=== PATIENT | male | born 1945 | race Caucasian/White ===

== ENCOUNTER 2020-12-26 14:33 | Outpatient (CLI) | payer MEDICARE, OTHER, SELFPAY ==
--- NOTE | ~2020-12-26 | CT_ITS ---
EXAMINATION: CT abdomen pelvis w con DATE: 12/26/2020 15:22 INDICATION: Secondary malignant neoplasm of unspecified site TECHNIQUE: Computed tomography (CT) of the abdomen and pelvis was performed with 100 cc Omnipaque 350 intravenous contrast. Automated exposure control and iterative reconstruction technique were employe d. Exam dose: 1313.00 mGy-cm total exam DLP. COMPARISON: None. FINDINGS: There is peripheral septal soft tissue thickening and honeycombing suggesting usual interst itial pneumonia or interstitial fibrosis. Heart size is normal. There is coronary artery calcification. No pericardial or pleural effusion. There is a small sliding hiatal hernia. There is a 2 cm gallstone. No gallbladder wall thickening or pericholecystic fluid or fat stranding. No bile duct dilatation. There are multiple ill-defined space-occupying mass lesions of the liver, the largest situated in the left lobe, measuring at least 5.5 cm maximal dimension. The findings are most suggestive of hepatic metastatic disease. Differential diagnosis includes multifocal hepatocellular carcinoma. There is at least one approximately 8 mm splenic ill-defined hypoattenuating lesion; splenic metastas is is not excluded. Possible 8 mm left adrenal hypoattenuating mass; the adrenal glands are otherwise unremarkable. 12 mm exophytic right renal cyst. Mild focal anterior mid right renal scarring. No urinary tract calc ulus or hydroureteronephrosis. There is massive enlargement of the heterogeneous prostate gland, prominently impressing the base of the urinary bladder. There is moderate diffuse bladder wall thickening and bladder distention, likely due to bladder outlet obstruction. Mild colonic diverticulosis. No CT evidence of diverticulitis. No bowel obstruction, bowel wall thickening, pneumatosis or intraperitoneal free air is evident. There is atherosclerotic calcification of the abdominal aorta and aortic branches. No abdominal aorti c aneurysm. No intraperitoneal or retroperitoneal or pelvic mass lesion or adenopathy or ascites. Diffuse idiopathic skeletal hyperostosis of the thoracic spine. Degenerative change of the lumbar spi ne including prominent degenerative change at the apophyseal joints with associated grade 1 anterolis thesis at L4-5. Moderate degenerative disc disease at L4-5 and L5-S1. Bilateral hip osteoarthritis. No apparent osteolytic or osteoblastic lesions are noted. IMPRESSION: Multiple ill-defined fine hepatic mass lesions, measuring up to 5.5 cm, most likely due to hepatic metastatic disease. Differential diagnosis includes multifocal or metastatic hepatocellula r carcinoma Small sliding hiatal hernia At least one 8 mm space-occupying mass lesion of the spleen; splenic metastasis is not excluded. Massive prostate enlargement with evidence of bladder outlet obstruction 12 mm exophytic right renal cyst Focal anterior mid right renal scar Reviewed, dictated and finalized at [facility]. Reviewed, dictated and finalized at [facility]. IMPRESSION: Multiple ill-defined fine hepatic mass lesions, measuring up to 5. 5 cm, most likely due to hepatic metastatic disease. Differential diagnosis inc ludes multifocal or metastatic hepatocellular carcinoma Small sliding hiatal hernia At least one 8 mm space-occupying mass lesion of the spleen; splenic metastasis is not excluded. Massive prostate enlargement with evidence of bladder outlet obstruction 12 mm exophytic right renal cyst Focal anterior mid right renal scar
[2020-12-26 15:14] LABS: Estimated Glomerular Filt Rate > 60
== END 2020-12-26 14:34 | disposition home or self-care (01) ==
PROVIDERS: PCP Family Medicine; Visit Provider Family Medicine
DX: C79.9 Secondary malignant neoplasm of unspecified site (principal); R16.0 Hepatomegaly, not elsewhere classified; R16.1 Splenomegaly, not elsewhere classified; N28.1 Cyst of kidney, acquired; K57.30 Diverticulosis of large intestine without perforation or abscess without bleeding; K44.9 Diaphragmatic hernia without obstruction or gangrene; I25.10 Atherosclerotic heart disease of native coronary artery without angina pectoris; M17.0 Bilateral primary osteoarthritis of knee; K80.80 Other cholelithiasis without obstruction; E27.9 Disorder of adrenal gland, unspecified; I70.0 Atherosclerosis of aorta; N40.0 Benign prostatic hyperplasia without lower urinary tract symptoms; M48.14 Ankylosing hyperostosis [Forestier], thoracic region; M47.816 Spondylosis without myelopathy or radiculopathy, lumbar region; M47.817 Spondylosis without myelopathy or radiculopathy, lumbosacral region
CPT/HCPCS: 74177; Q9967

== ENCOUNTER 2020-12-28 12:29 | Outpatient (CLI) | payer MEDICARE, OTHER, SELFPAY ==
[2020-12-28 13:03] LABS: Basophils Percent Auto 0.6 % (0.2-1.2); Eosinophils Absolute Auto 0.2 K/mm3 (0-0.3); Eosinophils Percent Auto 2.6 % (0-4.4); Hematocrit 44.3 % (42.0-52.0); Hemoglobin 14.5 g/dL (14.0-18.0); Immature Granulocyte Absolute 0.03 K/mm3 (0.00-0.031); Immature Granulocyte Percent A 0.4 % (0-0.5); Lymphocytes Absolute Auto 2.07 K/mm3 (0.9-3.2); Lymphocytes Percent Auto 29.7 % (18.3-44.2); Mean Corpuscular HGB Conc 32.7 g/dl (32-36); Mean Corpuscular Hemoglobin 27.9 pg (26-34); Mean Corpuscular Volume 85.2 fl (80-100); Mean Platelet Volume 9.5 fl (7.4-10.4); Monocytes Absolute Auto 0.6 K/mm3 (0.1-0.6); Monocytes Percent Auto 8.3 % (2.6-8.5); Neutrophils Absolute Auto 4.1 K/mm3 (1.3-6.7); Neutrophils Percent Auto 58.4 % (45.5-73.1); Platelet Count Result 222 k/mm3 (150-375); Red Cell Distribution Width 14.1 % (11.5-14.5)
[2020-12-28 20:19] LABS: Alanine Aminotransferase 23 U/L (4-50); Albumin Level 4.4 g/dL (3.5-5.1); Alkaline Phosphatase 100 U/L (38-126); Anion Gap 10 mmol/L (8-16); Aspartate Amino Transferase 26 U/L (17-59); Bilirubin,Total 0.5 mg/dL (0.2-1.3); Blood Urea Nitrogen 12 mg/dL (9-20); Calcium 9.8 mg/dL (8.4-10.2); Carbon Dioxide 29 mmol/L (22-30); Chloride 102 mmol/L (98-107); Estimated Glomerular Filt Rate > 60; Glucose 106 mg/dL (65-110); Potassium 4.1 mmol/L (3.4-5.0); Sodium 141 mmol/L (137-145)
[2020-12-28 20:58] LABS: Prostate Specific Antigen 3.3 ng/mL (< OR = 4.0)
[2020-12-31 08:55] LABS: CA 19-9 53 U/mL (<34)
== END 2020-12-28 12:30 | disposition home or self-care (01) ==
LOC: ANHLAB 12:48
PROVIDERS: PCP Family Medicine; Visit Provider Internal Medicine Hematology & Oncology
DX: C18.9 Malignant neoplasm of colon, unspecified (principal); K74.60 Unspecified cirrhosis of liver; R97.20 Elevated prostate specific antigen [PSA]
CPT/HCPCS: 36415; 80053; 82105; 84153; 85025; 86301

== ENCOUNTER 2021-01-05 07:46 | Outpatient (CLI) | payer MEDICARE, OTHER, SELFPAY ==
--- NOTE | ~2021-01-05 | PE_ITS ---
EXAMINATION: PET skull to mid thigh DATE: 01/05/2021 11:40 INDICATION: Carcinoma of unknown primary TECHNIQUE: Blood glucose level was 105 mg/dL. 10.593 mCi of 18-fluorodeoxyglucose (18-FDG) was admini stered i.v. Low dose computed tomography (CT) images were acquired from the base of the brain to the proximal thighs for attenuation correction and anatomic localization. Positron emission tomography (P ET) images were acquired in the same distribution beginning 60 minutes after injection. The dose-lary th product (DLP) was 1065.50 mGy-cm. COMPARISON: None FINDINGS: Head/neck: No abnormal FDG uptake is identified. There is mild mucosal thickening of the paranasal si nuses. No pathologically enlarged lymph nodes are identified. Minimal FDG uptake in the oral cavity w ithout suspicious CT correlate is likely physiologic. Chest: No abnormal FDG uptake is identified. There is moderate emphysema. There are subpleural reticu lar and groundglass opacities of the lungs with a lower lung zone predominant honeycombing. There is no pleural effusion or pneumothorax. The heart size is normal. There is calcified coronary artery ath erosclerosis. Abdomen/pelvis/proximal thighs: There is eccentric wall thickening involving the posterior aspect of the distal esophagus with associated FDG uptake and SUV max of 12.3. There is an approximately 5.8 x 5.2 cm mass in liver segment Otto with abnormal FDG uptake and an SUV max of 10.4. Absence of central FDG uptake in the mass is consistent with necrosis. There are several smaller additional areas of abn ormal FDG uptake, some of which correspond to the mass is identified on today's MRI and recent CT exa mination. These are difficult to identify on the accompanying noncontrast CT. There is an 8 mm gastro hepatic ligament lymph node which demonstrates mild FDG uptake. There is a 7 mm periportal lymph node with abnormal FDG uptake and SUV max 5.3 there is an approximately 11 mm lymph node in the small bow el mesentery to the right of midline on axial CT image 42 which demonstrates abnormal FDG uptake. The spleen, pancreas, and adrenal glands are normal. A stone is present in the nondistended gallbladd er. There is a 9 mm cyst of the right kidney. The left kidney is unremarkable. Physiologic FDG activi ty is present in the bowel and urinary tract. There is no free intraperitoneal gas or evidence of bow el obstruction. There is calcified atherosclerosis of the aorta and many of the other arteries. Marke d prostatomegaly is noted. Musculoskeletal: No abnormal FDG uptake is identified. There is moderate cervical and thoracic spondy losis. IMPRESSION: 1. Eccentric wall thickening of the distal esophagus concerning for malignancy. Endoscopy is recommen ded. 2. Liver masses and abdominal lymphadenopathy, consistent with metastatic disease. Reviewed, dictated and finalized at [facility]. IMPRESSION: 1. Eccentric wall thickening of the distal esophagus concerning for malignancy. Endoscopy is recommended. 2. Liver masses and abdominal lymphadenopathy, consistent with metastatic disea se.
--- NOTE | ~2021-01-05 | MR_ITS ---
EXAMINATION: MR abdomen wo/w con INDICATION: Carcinoma of unknown primary TECHNIQUE: Coronal SSFSE ARC, WATER:coronal LAVA-FLEX, Coronal 2D FIESTA FatSat, Axial SSFSE BH ARC, Axial 3D DualEcho BH, Axial SSFSE-IR, Axial DWI b=500, Axial 2D FIESTA FatSat, pre and dynamic postco ntrast Axial LAVA ARC, postcontrast Coronal In and Opposed phase LAVA FLEX COMPARISON: CT, 12/26/2020 CONTRAST: Multihance, 20 cc FINDINGS: There are at least five liver masses. The largest measures 6.2 x 5.6 cm in liver segment IV a. The mass demonstrates heterogeneous enhancement with restricted diffusion. The additional smaller masses are seen in liver segments V, VII, and VIII. The spleen, pancreas, and adrenal glands are norm al. Stones are present in the nondistended gallbladder. There is a 12 mm cyst of the right kidney. Th e left kidney is unremarkable. No pathologically enlarged abdominal lymph nodes are identified. There are no dilated loops of bowel. There is questionable eccentric wall thickening of the distal esophag us with restricted diffusion. IMPRESSION: 1. Multiple liver masses, consistent with metastatic disease. 2. Possible eccentric wall thickening of the distal esophagus which could reflect malignancy, esophag itis, or possibly incomplete distention. Reviewed, dictated and finalized at location [facility]. IMPRESSION: 1. Multiple liver masses, consistent with metastatic disease. 2. Possible eccentric wall thickening of the distal esophagus which could refle ct malignancy, esophagitis, or possibly incomplete distention.
[2021-01-05 08:45] LABS: Estimated Glomerular Filt Rate > 60
[2021-01-05 09:29] LABS: Glucose Point of Care 105 mg/dl (65-105)
== END 2021-01-05 07:47 | disposition home or self-care (01) ==
PROVIDERS: PCP Family Medicine; Visit Provider Internal Medicine Hematology & Oncology
DX: C80.1 Malignant (primary) neoplasm, unspecified (principal); R93.5 Abnormal findings on diagnostic imaging of other abdominal regions, including retroperitoneum; R16.0 Hepatomegaly, not elsewhere classified; R59.0 Localized enlarged lymph nodes
CPT/HCPCS: 74183; 78815; A9552; A9577

== ENCOUNTER 2021-01-13 14:28 | Outpatient (CLI) | payer MEDICARE, OTHER, SELFPAY ==
[2021-01-13 15:08] LABS: Prothrombin Time 12.8 Seconds (11.1-14.7)
[2021-01-13 15:09] LABS: Partial Thromboplastin Time 26.3 SECONDS (22.3-36.8)
== END 2021-01-13 14:29 | disposition home or self-care (01) ==
LOC: ANHSURGERY 14:31
PROVIDERS: PCP Family Medicine; Visit Provider Surgery
DX: Z01.818 Encounter for other preprocedural examination (principal); C15.9 Malignant neoplasm of esophagus, unspecified
CPT/HCPCS: 36415; 85610; 85730

== ENCOUNTER 2021-01-17 02:08 | Day surgery (SDC) | payer MEDICARE, SELFPAY ==
[2021-01-13 12:02] VITALS: BMI 29.3
--- NOTE | ~2021-01-17 | XR_ITS ---
EXAMINATION: XR chest port-a-cath/central DATE: 01/17/2021 14:14 INDICATION: Port catheter placement TECHNIQUE: frontal view of the chest was obtained. COMPARISON: PET/CT dated 01/05/[address] dated 12/26/2020 FINDINGS: Left subclavian central venous port catheter with distal tip at the caudal superior vena cava. There is a focal undulation the course of the catheter where it passes between the clavicle and anterior le ft first rib. There is however no flattening or sharp kinking of the catheter. Peripheral and lower l janina predominant coarse reticular pattern throughout both lungs with associated peripheral honeycombin g evident on the prior CT consistent with usual interstitial pneumonia (UIP) pattern chronic intersti tial lung disease. No pleural effusion or pneumothorax. The cardiomediastinal silhouette is normal. IMPRESSION: 1. Left subclavian central venous port catheter tip in the caudal superior vena cava. Focal undulatio n in the course of the catheter but without evident flattening or sharp kinking where it passes betwe en the left clavicle and anterior first rib. Line 2. Chronic interstitial lung disease. Reviewed, dictated and finalized at location [facility]. IMPRESSION: 1. Left subclavian central venous port catheter tip in the caudal superior vena cava. Focal undulation in the course of the catheter but without evident shayne ening or sharp kinking where it passes between the left clavicle and anterior f irst rib. Line 2. Chronic interstitial lung disease.
--- NOTE | ~2021-01-17 | XR_ITS ---
EXAMINATION: XR fl guide central line place DATE: 01/17/2021 13:55 INDICATION: Port catheter placement TECHNIQUE: 2 fluoroscopic images of the upper chest were obtained during procedure performed by Dr. Jania lunsford. Radiologist was not present for the imaging or procedure. The amount of fluoroscopy time used d uring this procedure was 0.7 minutes. COMPARISON: None. FINDINGS: Left subclavian central venous port catheter which extends into the superior vena cava with distal ti p collimated beyond the [id number]. No pneumothorax in the visualized lungs. IMPRESSION: 1. Fluoroscopy utilized during left subclavian central venous port catheter placement. See procedure note for further detail. Reviewed, dictated and finalized at location [facility]. IMPRESSION: 1. Fluoroscopy utilized during left subclavian central venous port catheter tony cement. See procedure note for further detail.
--- NOTE | 2021-01-17 11:41 | WPDANESEPPF ---
Anes - Initial Pre Proc Eval Procedure: Operation Date: 01/17/21 13:00 Proposed Procedures p Insertion of Maria Teresa Cath - Coreen Keenan MD Date/Time: 01/17/21 11:41 Surgeon: Coreen Keenan MD Pre Op Diagnosis: carcinoma of unknown primary Patient Data Age: 75 Gender: M Height: 1.78 m Weight: 92.7 kg Allergies Allergy/AdvReac Type Severity Reaction Status Date / Time amoxicillin Allergy Unknown Swelling Verified 09/21/20 10:11 clavulanic acid Allergy Unknown Swelling Verified 09/21/20 10:11 erythromycin base Allergy Unknown Swelling Verified 09/21/20 10:11 Home Medications Medication Instructions Recorded Confirmed Type aspirin 325 mg tablet 325 mg PO DAILY 03/24/19 01/13/21 History clobetasol 0.05 % topical ointment 1 applic TOPICAL DAILY 03/24/19 01/13/21 History polyethylene glycol 3350 17 17 gm PO DAILY 03/24/19 01/13/21 History gram/dose oral powder enalapril maleate 10 mg tablet 10 mg PO DAILY #90 tablet 02/15/20 01/13/21 Rx tamsulosin 0.4 mg capsule 0.4 mg PO DAILY #90 cap 02/15/20 01/13/21 Rx apremilast 30 mg tablet 30 mg PO .qd tablet 09/21/20 01/13/21 History hydrochlorothiazide 25 mg tablet 25 mg PO DAILY #30 tablet 10/28/20 01/13/21 Rx glucosamine-chondroitin 2 tablet PO DAILY 01/13/21 01/13/21 History Patient hx anesthesia problems: none Family hx anesthesia problems: none PMFSH Past Medical History Medical History (Updated 01/17/21 @ 11:41 by Fritz Garcia MD) Esophageal cancer, stage IV Hypertension Family History Family History (System 03/27/19 @ 10:54 by Ludmila Jorge) Father Cerebrovascular accident Mother Family history of malignant neoplasm Sibling Family history of malignant neoplasm of kidney Social History Social History Smoking packs per day: 1 Smoking cigarettes per day: 20.0 Years smoked: 30 Smoking pack-years: 30.00 Smoking status: Former smoker Tobacco type: cigarettes and e-cigarettes/vaping Smokeless tobacco user: chewing tobacco Second hand tobacco smoke exposure: No Smoking end date: 01/13/91 Alcohol intake: never Substance use: never Substance use type: does not use Living arrangements: with family Gender identity (if verbalized by the patient): Male Spiritual care concerns: No Anes - Eval Final PreProcedure Day of Procedure 01/17/21 11:41 Patient weight: overweight Heart: regular rate and rhythm Lungs: clear to auscultation and normal air movement Airway: Mallampati scale class II Neurological: alert and oriented Last oral intake: >/= 8 hours ASA classification: IV Emergent: no Anesthetic plan: proceed Anesthesia type and monitoring: general GIVS Informed Consent: The patient's anesthetic plan and its attendant risks and benefits were discussed with the patient/family/POA. Questions were solicited and answers provided to the satisfaction of the patient/family/POA.
[2021-01-17] MEDS: KETOROLAC 15 MG/ML VIAL (*BKC) IV PUSH (11:45)
[2021-01-17] MEDS: LACTATED RINGERS 1,000 ML 30 ML IV CONT (11:45)
[2021-01-17 11:55] VITALS: BP 149/81; PULSE 69; RESP 16; TEMP 36.6; O2SAT 98
--- NOTE | 2021-01-17 12:57 | PM.IMHP ---
H&P: HPI History of Present Illness Date/Time: 01/17/21 12:57 Pt is a 75 y/o M presenting for VAD placement. 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 Pt is going to undergo chemotx and needs access. Pt denies any previous central venous access. Chief Complaint: metastatic adenocarcinoma Review of Systems Review of Systems: All systems reviewed & are unremarkable except as noted in HPI and below PMFSH Past Medical History Medical History Esophageal cancer, stage IV Hypertension Family History Family History Father Cerebrovascular accident Mother Family history of malignant neoplasm Sibling Family history of malignant neoplasm of kidney Social History Social History Smoking packs per day: 1 Smoking cigarettes per day: 20.0 Years smoked: 30 Smoking pack-years: 30.00 Smoking status: Former smoker Tobacco type: cigarettes and e-cigarettes/vaping Smokeless tobacco user: chewing tobacco Second hand tobacco smoke exposure: No Smoking end date: 01/13/91 Alcohol intake: never Substance use: never Substance use type: does not use Living arrangements: with family Gender identity (if verbalized by the patient): Male Spiritual care concerns: No Meds Home Medications and Allergies Home Medications Medication Instructions Recorded Confirmed Type aspirin 325 mg tablet 325 mg PO DAILY 03/24/19 01/17/21 History clobetasol 0.05 % topical ointment 1 applic TOPICAL DAILY 03/24/19 01/13/21 History polyethylene glycol 3350 17 17 gm PO DAILY 03/24/19 01/13/21 History gram/dose oral powder enalapril maleate 10 mg tablet 10 mg PO DAILY #90 tablet 02/15/20 01/13/21 Rx tamsulosin 0.4 mg capsule 0.4 mg PO DAILY #90 cap 02/15/20 01/13/21 Rx apremilast 30 mg tablet 30 mg PO .qd tablet 09/21/20 01/13/21 History hydrochlorothiazide 25 mg tablet 25 mg PO DAILY #30 tablet 10/28/20 01/13/21 Rx glucosamine-chondroitin 2 tablet PO DAILY 01/13/21 01/13/21 History Allergies Allergy/AdvReac Type Severity Reaction Status Date / Time amoxicillin Allergy Unknown Swelling Verified 01/17/21 11:52 clavulanic acid Allergy Unknown Swelling Verified 01/17/21 11:52 erythromycin base Allergy Unknown Swelling Verified 01/17/21 11:52 Vital Signs Vital Signs - 24 hr 01/17/21 11:55 Temperature 36.6 C Pulse Rate 69 Respiratory Rate 16 Blood Pressure 149/81 H Pulse Oximetry 98 Exam Const: General: cooperative, comfortable and no acute distress Nutritional Appearance: average body habitus Orientation/consciousness: patient oriented x3 Limitations: no limitations Neck: Neck: normal visual inspection and full ROM Chest: Chest palpation & inspection: normal inspection of the chest Resp: Effort & Inspection: normal respiratory effort Auscultation: clear to auscultation bilaterally Cardio: Rate: regular rate Rhythm: regular rhythm GI: Inspection: normal to inspection GI Palp: Yes Soft to palpation and No Tenderness to palpation present (GI) Assessment and Plan Assessment and plan (1) Esophageal cancer, stage IV: Code(s): C15.9 - Malignant neoplasm of esophagus, unspecified Status: Acute Assessment and Plan: OR for placement of VAD
--- NOTE | 2021-01-17 12:59 | WPDHPUPDATE1 ---
History and Physical Update Update Date/Time: 01/17/21 12:59 History and Physical has been reviewed, including an updated exam of the patient. There are NO changes in the patient's condition. Risks, benefits, and alternatives have been discussed and questions answered. Patient agrees to proceed with procedure.
[2021-01-17] MEDS: ceFAZolin 2 GM/D5W 50 ML 2 GM/50 ML BAG IVPB (13:27)
[2021-01-17] MEDS: BUPIVACAINE/EPINEPHRINE 0.25% 50 ML VIAL INFILTRATE (13:46)
[2021-01-17] MEDS: HEPARIN SODIUM 5,000 UNITS/ML VIAL 5000 UNITS IRRIGATION (13:48)
--- NOTE | 2021-01-17 13:55 | P.OP_ITS ---
Procedure Note - Detailed Date of Procedure 01/17/21 Pre-op Diagnosis carcinoma of unknown primary Post-op Diagnosis same Procedure Performed placement of left subclavian venous access device Surgeon Coreen Keenan MD Anesthesia MAC and local Indications 75 y/o M c metastatic adenocarcinoma Findings 1st stick L subclavian Description of Procedure Patient was brought into the operating room and placed in the supine position. After adequate induction of mac anesthesia, the patient was prepped and draped in normal sterile fashion. Time-out was then done to verify the patient's identity, as well as the procedure being performed. I began by making a small incision in the left chest, I then gained access into the left subclavian vein with an 18 gauge needle. I then placed the guidewire into the vein and confirmed placement via fluoroscopic guidance. I then locally anesthetized the area in the left chest. I then enlarged the incision around the guidewire including making a subcutaneous pocket inferiorly to allow placement of the port itself. I then placed a dilating sheath over the guidewire into the left subclavian vein via sterile Seldinger technique. This was once again done and confirmed via fluoroscopic guidance. I then removed the dilator and the guidewire, now just leaving the sheath in the vein. I then fed the previously flushed catheter into the left subclavian vein under fluoroscopic guidance. At approximately 25 cm, the catheter was noted to be near the atrial caval junction. I then peeled away the sheath, now just leaving the catheter in the vein. I then was able to easily draw and flush from the catheter. The catheter was cut to fit and attached to the port itself. The port was placed into the previously made subcutaneous pocket and sutured in with 0 Ethibond s uture. Final fluoroscopic view showed the termination of the catheter at the atrial caval junction with a nice smooth curvature back to the port itself. I was able to gain access to the port with a Suárez needle and was able to easily draw and flush from the port. I then flushed 4 cc of a final heparin flush into the port. The incision was closed with 3 0 Vicryl suture in the subcutaneous tissue and the skin was closed with 4 O Monocryl subcuticular suture. Dermabond was then placed on wound. The patient tolerated the procedure well and will be sent to the recovery room in stable condition. Implants LSCV VAD Estimated Blood Loss 5 Drains No Packing No Pathology none sent Complications No immediate complications Condition stable Disposition PACU
[2021-01-17 14:00] VITALS: BP 94/64; PULSE 72; RESP 15; O2SAT 98
[2021-01-17 14:30] VITALS: BP 155/79; PULSE 60; RESP 15
[2021-01-17 14:45] VITALS: BP 149/75; PULSE 68; RESP 15
== END 2021-01-17 14:50 | disposition home or self-care (01) ==
PROVIDERS: PCP Family Medicine; Visit Provider Surgery
PROC: (CPT 36561; principal; 2021-01-17 13:00)
DX: C15.9 Malignant neoplasm of esophagus, unspecified (principal); I10 Essential (primary) hypertension; Z87.891 Personal history of nicotine dependence; Z79.82 Long term (current) use of aspirin
CPT/HCPCS: 36561; 77001; C1788; J0690; J1644; J1885; J2704; J3010; J7030; J7120

== ENCOUNTER 2021-01-27 01:42 | Day surgery (SDC) | payer MEDICARE, SELFPAY ==
[2021-01-20 13:05] VITALS: BMI 29.2
[2021-01-27 08:51] VITALS: BP 150/75; PULSE 72; RESP 16; TEMP 36.1; O2SAT 96; BMI 28.9
[2021-01-27] MEDS: LACTATED RINGERS 1,000 ML 150 ML IV CONT (09:04)
--- NOTE | 2021-01-27 09:19 | WPDGICN ---
Assessment and Plan Assessment and plan (1) Metastatic adenocarcinoma: Code(s): C79.9 - Secondary malignant neoplasm of unspecified site Status: Acute Assessment and Plan: Patient has a biopsy of the chin suggesting metastatic adenocarcinoma. CT scan suggest metastatic lesions to the liver. There is thickening of the esophagus and this will be evaluated by EGD today. (2) Abnormal gastrointestinal PET scan: Code(s): R94.8 - Abnormal results of function studies of other organs and systems Status: Acute Assessment and Plan: PET scan searching for etiology of the metastatic adenocarcinoma suggest thickening of the esophagus. Additionally is noted to have multiple liver lesions consistent with metastatic disease EGD will be performed further recommendations subsequently. GI Consult Note Consult date/time: 01/27/21 09:19 HPI: Dieudonne Mejia Jr. is a 75 year old male presents for EGD. Patient has a history of abnormal PET scan. Patient initially identified having a lesion on his chin. This was biopsied in found to be metastatic adenocarcinoma. He subsequently was referred to Oncology. A PET scan reveals multiple liver lesions consistent with metastatic disease. Thickening of the esophagus was identified and for this reason he was referred for EGD. Patient denies any dysphagia. He has had no weight loss. He admits to only very infrequent indigestion. Patient reports he had a Cologuard test 2 years ago that was negative. Review of Systems Review of Systems: All systems reviewed & are unremarkable except as noted in HPI and below PMFSH Past Medical History Medical History Esophageal cancer, stage IV Hypertension Family History Family History Father Cerebrovascular accident Mother Family history of malignant neoplasm Sibling Family history of malignant neoplasm of kidney Social History Social History Smoking packs per day: 1.5 Smoking cigarettes per day: 30.0 Years smoked: 30 Smoking pack-years: 45.00 Smoking status: Former smoker Tobacco type: smokeless tobacco Smokeless tobacco user: chewing tobacco Second hand tobacco smoke exposure: No Smoking end date: 01/13/91 Additional smoking assessment comments: CHEWED TOBACCO FOR 30YEARS AND STOPPED 12/2020 Alcohol intake: never Substance use: never Substance use type: does not use Living arrangements: with family Gender identity (if verbalized by the patient): Male Spiritual care concerns: No Meds Home Medications and Allergies Home Medications Medication Instructions Recorded Confirmed Type aspirin 325 mg tablet 325 mg PO DAILY 03/24/19 01/20/21 History clobetasol 0.05 % topical ointment 1 applic TOPICAL DAILY PRN 03/24/19 01/20/21 History polyethylene glycol 3350 17 17 gm PO DAILY 03/24/19 01/20/21 History gram/dose oral powder enalapril maleate 10 mg tablet 10 mg PO DAILY #90 tablet 02/15/20 01/20/21 Rx tamsulosin 0.4 mg capsule 0.4 mg PO DAILY #90 cap 02/15/20 01/20/21 Rx apremilast 30 mg tablet 30 mg PO .qd tablet 09/21/20 01/20/21 History hydrochlorothiazide 25 mg tablet 25 mg PO DAILY #30 tablet 10/28/20 01/20/21 Rx glucosamine-chondroitin 2 tablet PO DAILY 01/13/21 01/20/21 History lidocaine-prilocaine 1 applic TOPICAL PRN PRN 01/20/21 01/20/21 History prochlorperazine maleate 10 mg PO DAILY 01/20/21 01/27/21 History Allergies Allergy/AdvReac Type Severity Reaction Status Date / Time amoxicillin Allergy Intermediate Swelling Verified 01/27/21 08:50 clavulanic acid Allergy Intermediate Swelling Verified 01/27/21 08:50 erythromycin base Allergy Intermediate Swelling Verified 01/27/21 08:50 Vital Signs Vital Signs - 24 hr 01/27/21 08:51 Temperature 97.0 F L Pulse Rate 72 Respiratory Rate 16 Blood Press
--- NOTE | 2021-01-27 09:26 | WPDANESEPPF ---
Anes - Initial Pre Proc Eval Procedure: Operation Date: 01/27/21 09:30 Proposed Procedures p Esophagogastroduodenoscopy - Efraín Reynolds MD Date/Time: 01/27/21 09:26 Surgeon: Efraín Reynolds MD Pre Op Diagnosis: esophageal mass Patient Data Age: 75 Gender: M Height: 1.78 m Weight: 91.5 kg Last Vital Signs Temp 97.0 F L 01/27/21 08:51 Pulse 72 01/27/21 08:51 Resp 16 01/27/21 08:51 BP 150/75 H 01/27/21 08:51 Pulse Ox 96 01/27/21 08:51 Allergies Allergy/AdvReac Type Severity Reaction Status Date / Time amoxicillin Allergy Intermediate Swelling Verified 01/27/21 08:50 clavulanic acid Allergy Intermediate Swelling Verified 01/27/21 08:50 erythromycin base Allergy Intermediate Swelling Verified 01/27/21 08:50 Home Medications Medication Instructions Recorded Confirmed Type aspirin 325 mg tablet 325 mg PO DAILY 03/24/19 01/20/21 History clobetasol 0.05 % topical ointment 1 applic TOPICAL DAILY PRN 03/24/19 01/20/21 History polyethylene glycol 3350 17 17 gm PO DAILY 03/24/19 01/20/21 History gram/dose oral powder enalapril maleate 10 mg tablet 10 mg PO DAILY #90 tablet 02/15/20 01/20/21 Rx tamsulosin 0.4 mg capsule 0.4 mg PO DAILY #90 cap 02/15/20 01/20/21 Rx apremilast 30 mg tablet 30 mg PO .qd tablet 09/21/20 01/20/21 History hydrochlorothiazide 25 mg tablet 25 mg PO DAILY #30 tablet 10/28/20 01/20/21 Rx glucosamine-chondroitin 2 tablet PO DAILY 01/13/21 01/20/21 History lidocaine-prilocaine 1 applic TOPICAL PRN PRN 01/20/21 01/20/21 History prochlorperazine maleate 10 mg PO DAILY 01/20/21 01/27/21 History Patient hx anesthesia problems: none Family hx anesthesia problems: none Results Review: All pre-operative results and documents have been reviewed as part of the pre-operative evaluation. [facility] Past Medical History Medical History Esophageal cancer, stage IV Hypertension Family History Family History Father Cerebrovascular accident Mother Family history of malignant neoplasm Sibling Family history of malignant neoplasm of kidney Social History Social History Smoking packs per day: 1.5 Smoking cigarettes per day: 30.0 Years smoked: 30 Smoking pack-years: 45.00 Smoking status: Former smoker Tobacco type: smokeless tobacco Smokeless tobacco user: chewing tobacco Second hand tobacco smoke exposure: No Smoking end date: 01/13/91 Additional smoking assessment comments: CHEWED TOBACCO FOR 30YEARS AND STOPPED 12/2020 Alcohol intake: never Substance use: never Substance use type: does not use Living arrangements: with family Gender identity (if verbalized by the patient): Male Spiritual care concerns: No Anes - Eval Final PreProcedure Day of Procedure 01/27/21 09:26 Patient weight: overweight Heart: regular rate and rhythm Lungs: clear to auscultation Airway: Mallampati scale class III Neurological: alert and oriented Last oral intake: >/= 8 hours ASA classification: IV Emergent: no Anesthetic plan: proceed Anesthesia type and monitoring: general GIVS and standard monitoring Results Review: All pre-operative results and documents have been reviewed as part of the pre-operative evaluation. Informed Consent: The patient's anesthetic plan and its attendant risks and benefits were discussed with the patient/family/POA. Questions were solicited and answers provided to the satisfaction of the patient/family/POA.
[2021-01-27 09:50] VITALS: BP 107/76; PULSE 69; RESP 22; O2SAT 97
[2021-01-27 10:00] VITALS: BP 114/77; PULSE 64; RESP 16; O2SAT 98
[2021-01-27 10:10] VITALS: BP 127/91; PULSE 67; RESP 16; O2SAT 99
== END 2021-01-27 10:25 | disposition home or self-care (01) ==
PROVIDERS: PCP Family Medicine; Visit Provider Internal Medicine Gastroenterology
PROC: 0DJ08ZZ Inspection of Upper Intestinal Tract, Via Natural or Artificial Opening Endoscopic (ICD-10-PCS; CPT 43235; principal; 2021-01-27 09:30)
DX: C16.0 Malignant neoplasm of cardia (principal); C79.2 Secondary malignant neoplasm of skin; I10 Essential (primary) hypertension; Z87.891 Personal history of nicotine dependence
CPT/HCPCS: 43239; 88305; 88342; J2704; J7120

== ENCOUNTER 2021-03-06 08:42 | Outpatient (CLI) | payer MEDICARE, SELFPAY ==
--- NOTE | 2021-03-06 | ECHO_ITS ---
Patient Info Name: Dieudonne Mejia Age: 75 years : 1945 Gender: Male Ht: 70 in Wt: 197 lbs BSA: 2.12 m2 HR: 65 bpm BP: 131 / 77 mmHg Heart Rhythm: Sinus Rhythm Technical Quality: Fair Exam Date: 03/06/2021 9:06 AM Exam Location: [facility] Pulmonary Patient Status: Outpatient Admit Date: 03/06/2021 Staff Ordering Physician: Russell Helton MD Help Desk Associate: Olga Mazariegos RDCS Attending Provider: Russell Helton MD Referring Physician: Sunitha PANG; Exam Type: CA echo doppler color flow Study Info Indications C15.5 - CANCER OF DISTAL THIRD OF ESOPHAGUS Complete two-dimensional, color flow and Doppler transthoracic echocardiogram is performed. Summary 1. Complete two-dimensional, color flow and Doppler transthoracic echocardiogram is performed. 2. Left ventricular chamber dimension is upper limits of normal. 3. Left ventricular systolic function is normal, estimated at 60-65%. 4. There is mildly increased left ventricular wall thickness. 5. The left ventricular diastolic function is grade I diastolic dysfunction. 6. There is no aortic valve stenosis. 7. There is trace mitral valve regurgitation. 8. There is mild tricuspid valve regurgitation. 9. No pulmonary hypertension, estimated pulmonary arterial systolic pressure is 27 mmHg. Left Ventricle Left ventricular chamber dimension is upper limits of normal. Left ventricular systolic function is normal, estimated at 60-65%. There is mildly increased left ventricular wall thickness. Left ventricular septal wall motion is abnormal with septal motion related to bundle branch block. The left ventricular diastolic function is grade I diastolic dysfunction. Right Ventricle Right ventricular chamber dimension is normal. Right ventricular systolic function is normal. Left Atria Left atrial chamber dimension is normal. Right Atria Right atrial chamber dimension is normal. Aortic Valve The aortic valve is not well visualized. There is mild aortic valve sclerosis. There is no aortic valve stenosis. There is no aortic valve regurgitation. Pulmonic Valve The pulmonic valve is not well visualized. There is mild pulmonic regurgitation. Mitral Valve The mitral valve has normal leaflets. There is trace mitral valve regurgitation. The mitral valve annulus is moderately calcified. Tricuspid Valve The tricuspid valve leaflets are normal. There is mild tricuspid valve regurgitation. No pulmonary hypertension, estimated pulmonary arterial systolic pressure is 27 mmHg. Pericardium/Pleural The pericardium appears normal. There is no pericardial effusion. Inferior Vena Cava Normal inferior vena cava with >50% collapse upon inspiration consistent with normal right atrial pressure, 5 mmHg. Aorta The aortic root size at the sinus of Valsalva is normal. There is mild aortic atherosclerosis. Left Ventricular Outflow Tract Name Value Normal LVOT 2D LVOT Diameter 2.1 cm LVOT Doppler LVOT Peak Gradient 4 mmHg LVOT Mean Gradient 2 mmHg LVOT VTI 19 cm
== END 2021-03-06 08:43 | disposition home or self-care (01) ==
LOC: ANHCARD 08:46
PROVIDERS: PCP Family Medicine; Visit Provider Internal Medicine Hematology & Oncology
DX: C15.5 Malignant neoplasm of lower third of esophagus (principal); I07.1 Rheumatic tricuspid insufficiency
CPT/HCPCS: 93306

== ENCOUNTER 2021-03-15 07:48 | Emergency (ER) | payer MEDICARE, SELFPAY ==
--- NOTE | ~2021-03-15 | CT_ITS ---
EXAMINATION: CT abdomen pelvis w con DATE: 03/15/2021 09:43 INDICATION: Acute urinary retention TECHNIQUE: Computed tomography (CT) of the abdomen and pelvis was performed with 100 cc Omnipaque 350 intravenous contrast. The dose-length product was 831.16 mGy-cm. Automated exposure control and iter ative reconstruction technique were employed. COMPARISON: CT dated 12/26/2020. FINDINGS: There are coarse interstitial changes peripherally in the lower lungs, consistent with opener meenu interstitial fibrosis. Heart size normal. No significant pleural or pericardial effusion. There a re multiple hypovascular masses of the liver, largest dominant mass in the left hepatic lobe measurin g 5.4 x 5.7 x 5.4 cm, consistent with metastatic disease. There is a small subtle hypodense lesion of the spleen, too small to characterize, although likely benign. There are accessory splenules. The pa ncreas and adrenal glands are unremarkable. There is mild bilateral hydronephrosis. The bladder is se verely distended. There is a severely enlarged prostate gland likely causing bladder outlet obstructi on. Nonobstructive bowel gas pattern. Gallbladder is distended and contains gallstones. Mild atherosclero sis without aneurysm. There is a small periportal lymph node measuring 13 mm, likely metastatic disea se. No focal lytic or blastic lesions are seen. Moderate lumbar spondylosis with grade 1 degenerative spondylolisthesis at L4-5. IMPRESSION: 1. Multiple hypovascular liver lesions, largest dominant mass in the left hepatic lobe, consistent wi th metastatic disease. 2: Severely distended bladder likely secondary to outlet obstruction caused by severely enlarged pros bassett gland. 3: Mild bilateral hydroureteronephrosis. 4: Distended gallbladder with cholelithiasis. 5: Chronic interstitial pulmonary fibrosis. Reviewed, dictated and finalized at location A. [employer]NA[employer]P[facility] IMPRESSION: 1. Multiple hypovascular liver lesions, largest dominant mass in the left hepat ic lobe, consistent with metastatic disease. 2: Severely distended bladder likely secondary to outlet obstruction caused by severely enlarged prostate gland. 3: Mild bilateral hydroureteronephrosis. 4: Distended gallbladder with cholelithiasis. 5: Chronic interstitial pulmonary fibrosis.
[2021-03-15] MEDS: MORPHINE SULFATE (*CRX) 4 MG/ML INJ IV PUSH ×3 (08:43→11:53)
[2021-03-15] MEDS: LIDOCAINE HCL 2% GEL UROJET 10 ML PKG ×2 (08:44→13:26)
--- NOTE | 2021-03-15 08:53 | PC.NURSE ---
Unable to pass straight catheter. Coude catheter attempted with no success. ED physician notified. Will given patient pain medication and await further orders. Will continue to monitor patient.
[2021-03-15 09:00] LABS: Basophils Percent Auto 0.3 % (0.2-1.2); Eosinophils Percent Auto 0.2 % (0-4.4); Hemoglobin 13.4 g/dL (14.0-18.0); Immature Granulocyte Absolute 0.03 K/mm3 (0.00-0.031); Immature Granulocyte Percent A 0.5 % (0-0.5); Lymphocytes Absolute Auto 0.95 K/mm3 (0.9-3.2); Lymphocytes Percent Auto 15.1 % (18.3-44.2); Mean Corpuscular HGB Conc 32.7 g/dl (32-36); Mean Corpuscular Hemoglobin 28.9 pg (26-34); Mean Corpuscular Volume 88.6 fl (80-100); Mean Platelet Volume 10.2 fl (7.4-10.4); Monocytes Absolute Auto 0.5 K/mm3 (0.1-0.6); Monocytes Percent Auto 8.3 % (2.6-8.5); Neutrophils Absolute Auto 4.8 K/mm3 (1.3-6.7); Neutrophils Percent Auto 75.6 % (45.5-73.1); Platelet Count Result 163 k/mm3 (150-375); Red Blood Count 4.63 M/mm3 (4.6-6.20); Red Cell Distribution Width 16.9 % (11.5-14.5); White Blood Count 6.3 K/mm3 (4.5-10.0)
[2021-03-15 09:01] LABS: Add Urine Microscopic? YES; Appearance Urine Cloudy (Clear); Bilirubin Urine Negative (Negative); Blood Urine 3+ (Negative); Color Urine Red (Yellow); Glucose Urine UA 1+ mg/dL (Negative); Ketones Urine Negative (Negative); Leukocyte Esterase Ur Negative LEU/UL (Negative); Nitrate Urine Negative (Negative); Protein Urine 2+ mg/dL (Negative); RBC Urine >75 /hpf (0-2); Specific Grav Ur 1.016 (1.001-1.035); Urobilinogen Urine Negative mg/dL (<2.0)
[2021-03-15 09:07] LABS: Anion Gap 13 mmol/L (8-16); Blood Urea Nitrogen 18 mg/dL (9-20); Calcium 9.6 mg/dL (8.4-10.2); Carbon Dioxide 26 mmol/L (22-30); Chloride 103 mmol/L (98-107); Estimated Glomerular Filt Rate > 60; Glucose 174 mg/dL (65-110); Potassium 3.5 mmol/L (3.4-5.0); Sodium 142 mmol/L (137-145)
[2021-03-15 09:20] VITALS: BP 140/92; PULSE 75; RESP 14; TEMP 37.1; O2SAT 100
--- NOTE | 2021-03-15 09:29 | PC.NURSE ---
Coude catheter attempted by ED physician. Unable to pass catheter. Pt has small amount of bright red bleeding and clotting from penis at this time. Will await further orders and continue to monitor patient.
--- NOTE | 2021-03-15 10:08 | ED.MALEGU ---
HPI - Male Genitourinary General Chief complaint: Urogenital-Male Stated complaint: urinary retention Time Seen by Provider: 03/15/21 08:02 Source: patient History of Present Illness HPI Narrative: Patient presents with difficulty urination. Reports a history of enlarged prostate he says he occasionally has urinary retention but waits and is eventually able to urinate however this episode has been unable to urinate since yesterday. Reporting abdominal and pelvic discomfort. Denies any fevers, cough, congestion. Denies any Related Data Home Medications Medication Instructions Recorded Confirmed aspirin 325 mg tablet 325 mg PO DAILY 03/24/19 03/13/21 clobetasol 0.05 % topical ointment 1 applic TOPICAL DAILY PRN 03/24/19 03/13/21 polyethylene glycol 3350 17 17 gm PO DAILY 03/24/19 03/13/21 gram/dose oral powder apremilast 30 mg tablet 30 mg PO .qd tablet 09/21/20 03/13/21 glucosamine-chondroitin 2 tablet PO DAILY 01/13/21 03/13/21 lidocaine-prilocaine 1 applic TOPICAL PRN PRN 01/20/21 03/13/21 prochlorperazine maleate 10 mg PO DAILY 01/20/21 03/13/21 Allergies Allergy/AdvReac Type Severity Reaction Status Date / Time amoxicillin Allergy Intermediate Swelling Verified 03/15/21 09:23 clavulanic acid Allergy Intermediate Swelling Verified 03/15/21 09:23 erythromycin base Allergy Intermediate Swelling Verified 03/15/21 09:23 Review of Systems Review of Systems: CONSTITUTIONAL: Denies fever, chills, or sweats. EYES: Denies visual changes, redness, or discharge. ENT: Denies rhinorrhea, congestion, sore throat, or otalgia. CARDIOVASCULAR: Denies chest pain, palpitations, or edema. RESPIRATORY: Denies cough or dyspnea. GASTROINTESTINAL: Denies nausea, vomiting, or diarrhea. GENITOURINARY: Reports unable to urinate SKIN: Denies rash or itching. MUSCULOSKELETAL: Denies back pain, joint pain, or myalgia. NEUROLOGIC: Denies headache, numbness, dizziness, or weakness. PSYCHIATRIC: Denies anxiety or depression. All systems reviewed & are unremarkable except as noted in HPI and below PMFSH Past Medical History Medical History Esophageal cancer, stage IV Hypertension Family History Family History Father Cerebrovascular accident Mother Family history of malignant neoplasm Sibling Family history of malignant neoplasm of kidney Social History Social History Smoking packs per day: 1.5 Smoking cigarettes per day: 30.0 Years smoked: 30 Smoking pack-years: 45.00 Smoking status: Former smoker Tobacco type: smokeless tobacco Smokeless tobacco user: chewing tobacco Second hand tobacco smoke exposure: No Smoking end date: 01/13/91 Additional smoking assessment comments: CHEWED TOBACCO FOR 30YEARS AND STOPPED 12/2020 Alcohol intake: never Substance use: never Substance use type: does not use Gender identity (if verbalized by the patient): Male Spiritual care concerns: No Exam Narrative: GENERAL: Well-appearing, well-nourished, and in no acute distress. HEAD: Normocephalic, atraumatic. EYES: PERRLA and EOMI. ENT: Nares clear, no rhinorrhea or epistaxis. Mucous membranes moist. NECK: Supple. No masses. No JVD ABDOMEN: Moderate tenderness in the suprapubic area soft, nondistended EXTREMITIES: Normal range of motion. No edema. SKIN: Warm, dry, no rash. NEURO: No focal deficits. Alert and oriented x3. PSYCH: Normal mood and affect. Course Reevaluation(s) Reevaluation #1: Attempted to call urology patient continues to have severe pain CT scan shows enlarged prostate with distended bladder multiple times main to place catheter that were unsuccessful. Date: 03/15/21 Time: 10:09 Reevaluation #2: Discussed case with urology who will come down and attempt catheter placement Date: 03/15/21 Time: 10:30 Reevaluation #3: Urology was able to John
[2021-03-15] MEDS: DEXTROSE 5%/0.45% SOD CHL 1,000 ML 100 ML IV CONT (10:45)
[2021-03-15 13:47] VITALS: BP 114/69; PULSE 90; RESP 14; TEMP 37; O2SAT 100
--- NOTE | 2021-03-15 13:49 | PC.NURSE ---
Appropriate dose of heparin injected in to infusaport. Infusaport discontinued.
--- NOTE | 2021-03-15 15:22 | PM.OP ---
Procedure Note - Brief Procedure Note - Brief Date of procedure: 03/15/21 Pre-op diagnosis: urinary retention Surgeon: Maribell Mares MD
--- NOTE | 2021-03-15 15:24 | W.PM.PROC2 ---
Procedure Note - Detailed Date of Procedure 03/15/21 Pre-op Diagnosis urinary retention Post-op Diagnosis same Procedure Performed CYSTOSCOPY, PLACEMENT OF GABRIEL CATHETER Surgeon Maribell Mares MD Chief Dietitian Ken harrison Anesthesia none Description of Procedure Informed consent was obtained. Patient was prepped and draped in the normal fashion in the emergency department. A flexible cystoscope was inserted through the urethra in the membranous urethra large amount of blood was identified consistent with previous attempts to place a Gabriel catheter with inflation of the balloon in the prostatic urethra. With pressure placed on the fluid I was able to navigate the cystoscope into the bladder through the enlarged prostate. Over a wire a 18 F Councill tip catheter was placed with return of clear urine. The catheter was then left to gravity drainage Drains Yes Packing No Pathology none sent Complications No immediate complications Condition stable Disposition no change
--- NOTE | 2021-03-15 15:53 | WPDURCON ---
Assessment and Plan Assessment and plan (1) Acute urinary retention: Code(s): R33.8 - Other retention of urine Status: Acute Assessment and Plan: I attempted to place his mcintyre with an 18fr coude, but after multiple tries I was unsuccessful. Therefore, Dr. Mares did a bedside cystoscopy with catheter placement over guidewire. An 18fr lower sioux tip was placed and 2300cc of blood urine was drained from his bladder without difficulty. (2) Enlarged prostate: Code(s): N40.0 - Benign prostatic hyperplasia without lower urinary tract symptoms Status: Acute Assessment and Plan: Double Flomax to BID, and start Finasteride. F/U in the office in 3 weeks for a voiding trial. (3) Hematuria: Code(s): R31.9 - Hematuria, unspecified Status: Acute Assessment and Plan: PUsh fluids, if clots develop or blood doesn't subside call the office or go to the ER, especially if mcintyre stops draining. Secondary to multiple catheter placement attempts, will resolve with time. Urine culture sent, and we will start Keflex. Urology Consult Note HPI Date Seen: 03/15/21 Primary Care Provider: Fuentes Nguyễn MD Consult Narrative Narrative: Dieudonne Mejia Jr. is a 75 year old male who presented to the ER today with urinary retention that began yesterday. He states he hasn't urinated in 18 hours and can only dribble slightly. He c/o severe lower abdominal pain and low back pain, urgency but inability to have a stream. He has no history of prior urinary retention that required a catheterization. He hasn't seen a urologist but does take Flomax daily and has for many years. He knows he has underlying BPH, but hasn't really ever had any issues on Flomax until now. He is currently undergoing chemotherapy for esophageal cancer at [facility]. His WBC is 6.3, creatinine is 0.90, UA shows some leukocytes and RBC's, and is cloudy, a urine culture has been sent. We were consulted d/t difficulty with catheter placement at the bedside. The nursing staff tried 2x and the ER doctor once. His CT notes prostatomegaly, distended bladder and bilateral hydro. Review of Systems Cardiovascular: Cardiovascular: Denies chest pain Respiratory: Respiratory: Reports no additional respiratory complaints Gastrointestinal: Gastrointestinal: Reports abdominal pain, Denies nausea and Denies vomiting Genitourinary: Genitourinary: Denies hematuria, Denies dysuria, Reports flank pain, Denies urinary frequency, Reports urinary hesitancy, Denies urinary incontinence and Reports urinary urgency [facility] Past Medical History Medical History Esophageal cancer, stage IV Hypertension Family History Family History Father Cerebrovascular accident Mother Family history of malignant neoplasm Sibling Family history of malignant neoplasm of kidney Social History Social History Smoking packs per day: 1.5 Smoking cigarettes per day: 30.0 Years smoked: 30 Smoking pack-years: 45.00 Smoking status: Former smoker Tobacco type: smokeless tobacco Smokeless tobacco user: chewing tobacco Second hand tobacco smoke exposure: No Smoking end date: 01/13/91 Additional smoking assessment comments: CHEWED TOBACCO FOR 30YEARS AND STOPPED 12/2020 Alcohol intake: never Substance use: never Substance use type: does not use Gender identity (if verbalized by the patient): Male Spiritual care concerns: No Meds Home Medications and Allergies Home Medications Medication Instructions Recorded Confirmed Type aspirin 325 mg tablet 325 mg PO DAILY 03/24/19 03/13/21 History clobetasol 0.05 % topical ointment 1 applic TOPICAL DAILY PRN 03/24/19 03/13/21 History polyethylene glycol 3350 17 17 gm PO DAILY 03/24/19 03/13/21 History gram/dose oral powder rocio
--- NOTE | 2021-03-22 11:03 | PC.NURSE ---
Addendum entered by Shelley Lopez RN 03/22/21 11:26: Iv fluid clarification IV fluids Dextrose 5% .45 Normal Saline Original Note: LATE ENTRY This note is being entered to document information to the patient's record. The following information was omitted on [03/15/2021], by [Ling Montano RN]. Stop time for Dextrose 5% IV fluids is 1345, infused is 300ml.
== END 2021-03-15 13:49 | disposition home or self-care (01) ==
PROVIDERS: Emergency Provider Emergency Medicine; PCP Family Medicine
DX: N40.1 Benign prostatic hyperplasia with lower urinary tract symptoms (principal); R33.8 Other retention of urine; R31.9 Hematuria, unspecified; Z79.82 Long term (current) use of aspirin; Z87.891 Personal history of nicotine dependence
CPT/HCPCS: 36415; 51701; 52000; 52281; 74177; 80048; 81001; 85025; 96361; 96374; 96376; 99284; C1769; J1642; J2270; J7030; Q9967

== ENCOUNTER 2021-03-20 10:26 | Outpatient (CLI) | payer MEDICARE, SELFPAY ==
[2021-03-20 11:07] LABS: Alanine Aminotransferase 33 U/L (4-50); Albumin Level 4.1 g/dL (3.5-5.1); Alkaline Phosphatase 92 U/L (38-126); Anion Gap 8 mmol/L (8-16); Aspartate Amino Transferase 33 U/L (17-59); Bilirubin,Total 0.8 mg/dL (0.2-1.3); Blood Urea Nitrogen 13 mg/dL (9-20); Calcium 9.2 mg/dL (8.4-10.2); Carbon Dioxide 32 mmol/L (22-30); Chloride 96 mmol/L (98-107); Estimated Glomerular Filt Rate > 60; Glucose 114 mg/dL (65-110); Potassium 3.1 mmol/L (3.4-5.0); Sodium 136 mmol/L (137-145)
[2021-03-20 11:24] LABS: Basophils Percent Auto 0.7 % (0.2-1.2); Eosinophils Absolute Auto 0.1 K/mm3 (0-0.3); Eosinophils Percent Auto 2.3 % (0-4.4); Hematocrit 38.2 % (42.0-52.0); Hemoglobin 12.7 g/dL (14.0-18.0); Immature Granulocyte Absolute 0.03 K/mm3 (0.00-0.031); Immature Granulocyte Percent A 0.7 % (0-0.5); Lymphocytes Absolute Auto 1.39 K/mm3 (0.9-3.2); Lymphocytes Percent Auto 31.4 % (18.3-44.2); Mean Corpuscular HGB Conc 33.2 g/dl (32-36); Mean Corpuscular Hemoglobin 29.4 pg (26-34); Mean Corpuscular Volume 88.4 fl (80-100); Mean Platelet Volume 10.5 fl (7.4-10.4); Monocytes Absolute Auto 0.4 K/mm3 (0.1-0.6); Monocytes Percent Auto 8.6 % (2.6-8.5); Neutrophils Absolute Auto 2.5 K/mm3 (1.3-6.7); Neutrophils Percent Auto 56.3 % (45.5-73.1); Platelet Count Result 172 k/mm3 (150-375); Red Blood Count 4.32 M/mm3 (4.6-6.20); Red Cell Distribution Width 15.5 % (11.5-14.5); White Blood Count 4.4 K/mm3 (4.5-10.0)
== END 2021-03-20 10:27 | disposition home or self-care (01) ==
LOC: ANHLAB 10:28
PROVIDERS: PCP Family Medicine; Visit Provider Family Medicine
DX: D64.9 Anemia, unspecified (principal); C79.9 Secondary malignant neoplasm of unspecified site; I10 Essential (primary) hypertension
CPT/HCPCS: 36415; 80053; 85025

== ENCOUNTER 2021-03-22 17:26 | Emergency (ER) | payer MEDICARE, SELFPAY ==
[2021-03-22 17:30] VITALS: BP 144/81; PULSE 80; RESP 16; TEMP 36.8; O2SAT 98
--- NOTE | 2021-03-22 18:09 | ED.MALEGU ---
HPI - Male Genitourinary General Chief complaint: Urogenital-Male Stated complaint: no drainage from catheter Time Seen by Provider: 03/22/21 17:29 History of Present Illness HPI Narrative: Patient is a 75-year-old male who presents ER with urinary catheter complications. Recently had urinary retention and had to have a Curtis catheter placed by cystoscopy. Patient has been having persistent hematuria since then but no large clots. Reports one small clot this morning. He is unsure when his catheter last drained but thinks it is from earlier in the day. No lower abdominal pain. No fevers or chills or sweats. He continues to take his finasteride and his Flomax. Related Data Home Medications Medication Instructions Recorded Confirmed aspirin 325 mg tablet 325 mg PO DAILY 03/24/19 03/20/21 clobetasol 0.05 % topical ointment 1 applic TOPICAL DAILY PRN 03/24/19 03/20/21 polyethylene glycol 3350 17 17 gm PO DAILY 03/24/19 03/20/21 gram/dose oral powder apremilast 30 mg tablet 30 mg PO .qd tablet 09/21/20 03/20/21 glucosamine-chondroitin 2 tablet PO DAILY 01/13/21 03/20/21 lidocaine-prilocaine 1 applic TOPICAL PRN PRN 01/20/21 03/20/21 prochlorperazine maleate 10 mg PO DAILY 01/20/21 03/20/21 cyanocobalamin (vitamin B-12) 500 500 mcg PO DAILY 03/20/21 03/20/21 mcg tablet ferrous sulfate 325 mg (65 mg 325 mg PO DAILY 03/20/21 03/20/21 iron) tablet ondansetron 4 mg disintegrating 4 mg PO Q8H 03/20/21 03/20/21 tablet Allergies Allergy/AdvReac Type Severity Reaction Status Date / Time amoxicillin Allergy Intermediate Swelling Verified 03/20/21 09:28 clavulanic acid Allergy Intermediate Swelling Verified 03/20/21 09:28 erythromycin base Allergy Intermediate Swelling Verified 03/20/21 09:28 Review of Systems Review of Systems: All systems reviewed & are unremarkable except as noted in HPI and below Constitutional: Constitutional: Denies chills, Denies fever(s) and Denies weakness Gastrointestinal: Gastrointestinal: Denies abdominal pain, Denies nausea and Denies vomiting Genitourinary: Genitourinary: Reports hematuria, Reports oliguria and Denies dysuria [facility] Past Medical History Medical History Esophageal cancer, stage IV Hypertension Family History Family History Father Cerebrovascular accident Mother Family history of malignant neoplasm Sibling Family history of malignant neoplasm of kidney Social History Social History Smoking packs per day: 1.5 Smoking cigarettes per day: 30.0 Years smoked: 30 Smoking pack-years: 45.00 Smoking status: Former smoker Tobacco type: smokeless tobacco Smokeless tobacco user: chewing tobacco Second hand tobacco smoke exposure: No Smoking end date: 01/13/91 Additional smoking assessment comments: CHEWED TOBACCO FOR 30YEARS AND STOPPED 12/2020 Alcohol intake: never Substance use: never Substance use type: does not use Gender identity (if verbalized by the patient): Male Spiritual care concerns: No Exam Narrative: GENERAL: Well-appearing, well-nourished, and in no acute distress. HEAD: Normocephalic, atraumatic. HEART: Regular rate and rhythm. Normal peripheral pulses. ABDOMEN: Soft, nontender, nondistended. : Normal-appearing external genitalia with Curtis catheter coming from the urethra. After Curtis flowing hematuria noted with minimal clot. EXTREMITIES: Normal range of motion. No edema. SKIN: Warm, dry, no rash. NEURO: Alert and oriented x3. PSYCH: Normal mood and affect. Course Course Emergency Course: 1 small clot evacuated all flushing Curtis. The Curtis balloon to had to be deflated and the catheter slightly advanced and there was brisk return of urine. Patient feels improved. Discharge home. Vital Signs Vital signs: Vital Signs Temperature 98.2 F 03/22/21 17:30
--- NOTE | 2021-03-22 18:32 | PC.NURSE ---
GABRIEL CATHETER BALLOON DEFLATED, CATHETER ADVANCED AND ROTATED AND URINE FLOWED OUT IRRIGATED WITH 100MLS NORMAL SALINE WITH +RETURN OF 300MLS OF URINE/SALINE. PT TOLERATED WELL.
--- NOTE | 2021-03-23 15:40 | WPDURCON ---
Assessment and Plan Assessment and plan (1) Hematuria: Code(s): R31.9 - Hematuria, unspecified Status: Acute (2) Metastatic adenocarcinoma: Code(s): C79.9 - Secondary malignant neoplasm of unspecified site Status: Acute (3) Esophageal cancer, stage IV: Code(s): C15.9 - Malignant neoplasm of esophagus, unspecified Status: Acute (4) BPH loc w urin obs/LUTS: Code(s): N40.1 - Benign prostatic hyperplasia with lower urinary tract symptoms Status: Acute Assessment and Plan: Cystoscopy with clot evacuation Urology Consult Note HPI Date Seen: 03/23/21 Primary Care Provider: Fuentes Nguyễn MD Consult Narrative Narrative: Dieudonne Mejia Jr. is a 75 year old male, with known metastatic esophageal cancer, who has become well known in our practice over the course of the last 7-10 days. He initially presented to the ER where he had a traumatic Curtis catheterization. Since then he has had intermittent hematuria with potential clot retention. He was seen at 1 of her other offices today with there was difficulty irrigating his catheter. CT scan shows massive prostatic enlargement with clot in his bladder. He was transferred here and we will make arrangements for cystoscopy with clot evacuation. Has recently been started on both tamsulosin b.i.d. and finasteride. He is anxious for surgical intervention and not very willing to wait for medical management with periodic voiding trials Review of Systems Cardiovascular: Cardiovascular: Denies chest pain, Denies lightheadedness, Denies palpitations and Denies dyspnea Respiratory: Respiratory: Denies dyspnea Gastrointestinal: Gastrointestinal: Denies diarrhea, Denies nausea and Denies vomiting Genitourinary: Genitourinary: Denies hematuria and Denies dysuria Endocrine: Endocrine: Denies palpitations [facility] Past Medical History Medical History Esophageal cancer, stage IV Hypertension Family History Family History Father Cerebrovascular accident Mother Family history of malignant neoplasm Sibling Family history of malignant neoplasm of kidney Social History Social History Smoking packs per day: 1.5 Smoking cigarettes per day: 30.0 Years smoked: 30 Smoking pack-years: 45.00 Smoking status: Former smoker Tobacco type: smokeless tobacco Smokeless tobacco user: chewing tobacco Second hand tobacco smoke exposure: No Smoking end date: 01/13/91 Additional smoking assessment comments: CHEWED TOBACCO FOR 30YEARS AND STOPPED 12/2020 Alcohol intake: never Substance use: never Substance use type: does not use Gender identity (if verbalized by the patient): Male Spiritual care concerns: No Meds Home Medications and Allergies Home Medications Medication Instructions Recorded Confirmed Type aspirin 325 mg tablet 325 mg PO DAILY 03/24/19 03/20/21 History clobetasol 0.05 % topical ointment 1 applic TOPICAL DAILY PRN 03/24/19 03/20/21 History polyethylene glycol 3350 17 17 gm PO DAILY 03/24/19 03/20/21 History gram/dose oral powder enalapril maleate 10 mg tablet 10 mg PO DAILY #90 tablet 02/15/20 03/20/21 Rx apremilast 30 mg tablet 30 mg PO .qd tablet 09/21/20 03/20/21 History glucosamine-chondroitin 2 tablet PO DAILY 01/13/21 03/20/21 History lidocaine-prilocaine 1 applic TOPICAL PRN PRN 01/20/21 03/20/21 History prochlorperazine maleate 10 mg PO DAILY 01/20/21 03/20/21 History hydrochlorothiazide 25 mg tablet 25 mg PO DAILY #30 tablet 03/02/21 03/20/21 Rx cephalexin 500 mg PO Q12H 5 Days #10 cap 03/15/21 03/20/21 Rx finasteride 5 mg PO DAILY #30 tablet 03/15/21 03/20/21 Rx cyanocobalamin (vitamin B-12) 500 500 mcg PO DAILY 03/20/21 03/20/21 History mcg tablet ferrous sulfate 325 mg (65 mg 325 mg PO DAILY 03/20/21 03/20/21 H
== END 2021-03-22 18:25 | disposition home or self-care (01) ==
PROVIDERS: Emergency Provider Emergency Medicine; PCP Family Medicine
DX: T83.098A Other mechanical complication of other urinary catheter, initial encounter (principal); N40.1 Benign prostatic hyperplasia with lower urinary tract symptoms; R31.9 Hematuria, unspecified; C15.9 Malignant neoplasm of esophagus, unspecified; C79.9 Secondary malignant neoplasm of unspecified site; Z79.82 Long term (current) use of aspirin; I10 Essential (primary) hypertension; Z87.891 Personal history of nicotine dependence
CPT/HCPCS: 99282

== ENCOUNTER 2021-03-23 13:29 | Inpatient (IN) | payer MEDICARE, SELFPAY ==
[2021-03-23] VITALS (12 sets, daily range): BP systolic 107–152; BP diastolic 54–89; PULSE 55–84; RESP 14–20; TEMP 36.2–36.6; O2SAT 97–100
--- NOTE | 2021-03-23 14:47 | ED.MALEGU ---
HPI - Male Genitourinary General Chief complaint: Urogenital-Male Stated complaint: URINARY CATHETER ISSUES Time Seen by Provider: 03/23/21 14:35 History of Present Illness HPI Narrative: Patient is a 75-year-old male who presents ER with hematuria and urinary retention. Patient was seen by [place] nurse practitioner at the [place] [facility] office today. He had an outpatient CT scan performed that the urologist there felt indicated blood clots within the bladder in addition to enlarged prostate. Patient recently underwent cystoscopy for Curtis catheter placement. Since then he has had recurrent visits for a catheter that can flush but cannot drain. He has had persistent hematuria with what he reports is minimal clots. Denies fevers or chills or sweats. He is not on blood thinners. Related Data Home Medications Medication Instructions Recorded Confirmed aspirin 325 mg tablet 325 mg PO DAILY 03/24/19 03/20/21 clobetasol 0.05 % topical ointment 1 applic TOPICAL DAILY PRN 03/24/19 03/20/21 polyethylene glycol 3350 17 17 gm PO DAILY 03/24/19 03/20/21 gram/dose oral powder apremilast 30 mg tablet 30 mg PO .qd tablet 09/21/20 03/20/21 glucosamine-chondroitin 2 tablet PO DAILY 01/13/21 03/20/21 lidocaine-prilocaine 1 applic TOPICAL PRN PRN 01/20/21 03/20/21 prochlorperazine maleate 10 mg PO DAILY 01/20/21 03/20/21 cyanocobalamin (vitamin B-12) 500 500 mcg PO DAILY 03/20/21 03/20/21 mcg tablet ferrous sulfate 325 mg (65 mg 325 mg PO DAILY 03/20/21 03/20/21 iron) tablet ondansetron 4 mg disintegrating 4 mg PO Q8H 03/20/21 03/20/21 tablet tamsulosin 0.4 mg PO BID 03/23/21 03/23/21 Allergies Allergy/AdvReac Type Severity Reaction Status Date / Time amoxicillin Allergy Intermediate Swelling Verified 03/23/21 14:43 clavulanic acid Allergy Intermediate Swelling Verified 03/23/21 14:43 erythromycin base Allergy Intermediate Swelling Verified 03/23/21 14:43 Review of Systems Review of Systems: All systems reviewed & are unremarkable except as noted in HPI and below Constitutional: Constitutional: Denies chills, Denies fever(s) and Denies weakness ENT: Denies nasal congestion and Denies sore throat Respiratory: Respiratory: Denies cough and Denies dyspnea Gastrointestinal: Gastrointestinal: Denies abdominal pain, Denies nausea and Denies vomiting Genitourinary: Genitourinary: Reports hematuria, Reports oliguria, Denies dysuria and Denies urinary frequency [facility] Past Medical History Medical History (Updated 03/23/21 @ 16:28 by Gage Aleman MD) Abnormal gastrointestinal PET scan BPH loc w urin obs/LUTS Esophageal cancer, stage IV Hematuria Hypertension Metastatic adenocarcinoma Family History Family History Father Cerebrovascular accident Mother Family history of malignant neoplasm Sibling Family history of malignant neoplasm of kidney Social History Social History Smoking packs per day: 1.5 Smoking cigarettes per day: 30.0 Years smoked: 30 Smoking pack-years: 45.00 Smoking status: Former smoker Tobacco type: smokeless tobacco Smokeless tobacco user: chewing tobacco Second hand tobacco smoke exposure: No Smoking end date: 01/13/91 Additional smoking assessment comments: CHEWED TOBACCO FOR 30YEARS AND STOPPED 12/2020 Alcohol intake: never Substance use: never Substance use type: does not use Gender identity (if verbalized by the patient): Male Spiritual care concerns: No Exam Narrative: GENERAL: Well-appearing, well-nourished, and in no acute distress. HEAD: Normocephalic, atraumatic. ENT: Mucous membranes moist. CHEST: Clear to auscultation. No respiratory distress. HEART: Regular rate and rhythm. Normal peripheral pulses. ABDOMEN: Soft, nontender, nondistended. EXTREMITIES: Normal range of motion. Ambulates without difficulty. SKIN: Warm, dry
[2021-03-23 15:04] LABS: Basophils Percent Auto 0.4 % (0.2-1.2); Eosinophils Absolute Auto 0.1 K/mm3 (0-0.3); Eosinophils Percent Auto 1.4 % (0-4.4); Hematocrit 35.5 % (42.0-52.0); Hemoglobin 12.1 g/dL (14.0-18.0); Immature Granulocyte Absolute 0.02 K/mm3 (0.00-0.031); Immature Granulocyte Percent A 0.4 % (0-0.5); Immature Platelet Fraction Pct 3.2 % (0.9-11.2); Lymphocytes Absolute Auto 1.74 K/mm3 (0.9-3.2); Lymphocytes Percent Auto 30.8 % (18.3-44.2); Mean Corpuscular HGB Conc 34.1 g/dl (32-36); Mean Corpuscular Hemoglobin 29.5 pg (26-34); Mean Corpuscular Volume 86.6 fl (80-100); Mean Platelet Volume 9.7 fl (7.4-10.4); Monocytes Absolute Auto 0.7 K/mm3 (0.1-0.6); Monocytes Percent Auto 13.1 % (2.6-8.5); Neutrophils Absolute Auto 3.1 K/mm3 (1.3-6.7); Neutrophils Percent Auto 53.9 % (45.5-73.1); Platelet Count Result 151 k/mm3 (150-375); Red Cell Distribution Width 16.2 % (11.5-14.5); White Blood Count 5.7 K/mm3 (4.5-10.0)
[2021-03-23 15:15] LABS: Anion Gap 5 mmol/L (8-16); Blood Urea Nitrogen 14 mg/dL (9-20); Calcium 9.3 mg/dL (8.4-10.2); Carbon Dioxide 34 mmol/L (22-30); Chloride 97 mmol/L (98-107); Estimated CRCL calculation 54 ml/min; Estimated Glomerular Filt Rate > 60; Glucose 117 mg/dL (65-110); Potassium 2.9 mmol/L (3.4-5.0); Sodium 136 mmol/L (137-145)
[2021-03-23] MEDS: ONDANSETRON INJ 4 MG/2 ML VIAL IV PUSH (15:44)
--- NOTE | 2021-03-23 16:23 | WPDANESEPPF ---
Anes - Initial Pre Proc Eval Procedure: Operation Date: 03/23/21 17:00 Proposed Procedures p Cystoscopy, Evacuation Bladder Clots - Stewart Kelley MD Date/Time: 03/23/21 16:23 Surgeon: Stewart Kelley MD Pre Op Diagnosis: URINARY CATHETER BLOCKAGE Patient Data Age: 75 Gender: M Height: 1.73 m Weight: 81 kg Last Vital Signs Temp 36.6 C 03/23/21 13:33 Pulse 71 03/23/21 15:45 Resp 16 03/23/21 15:45 BP 129/72 03/23/21 15:45 Pulse Ox 100 03/23/21 15:45 Allergies Allergy/AdvReac Type Severity Reaction Status Date / Time amoxicillin Allergy Intermediate Swelling Verified 03/23/21 14:43 clavulanic acid Allergy Intermediate Swelling Verified 03/23/21 14:43 erythromycin base Allergy Intermediate Swelling Verified 03/23/21 14:43 Home Medications Medication Instructions Recorded Confirmed Type aspirin 325 mg tablet 325 mg PO DAILY 03/24/19 03/20/21 History clobetasol 0.05 % topical ointment 1 applic TOPICAL DAILY PRN 03/24/19 03/20/21 History polyethylene glycol 3350 17 17 gm PO DAILY 03/24/19 03/20/21 History gram/dose oral powder enalapril maleate 10 mg tablet 10 mg PO DAILY #90 tablet 02/15/20 03/20/21 Rx apremilast 30 mg tablet 30 mg PO .qd tablet 09/21/20 03/20/21 History glucosamine-chondroitin 2 tablet PO DAILY 01/13/21 03/20/21 History lidocaine-prilocaine 1 applic TOPICAL PRN PRN 01/20/21 03/20/21 History prochlorperazine maleate 10 mg PO DAILY 01/20/21 03/20/21 History hydrochlorothiazide 25 mg tablet 25 mg PO DAILY #30 tablet 03/02/21 03/20/21 Rx cephalexin 500 mg PO Q12H 5 Days #10 cap 03/15/21 03/20/21 Rx finasteride 5 mg PO DAILY #30 tablet 03/15/21 03/20/21 Rx cyanocobalamin (vitamin B-12) 500 500 mcg PO DAILY 03/20/21 03/20/21 History mcg tablet ferrous sulfate 325 mg (65 mg 325 mg PO DAILY 03/20/21 03/20/21 History iron) tablet ondansetron 4 mg disintegrating 4 mg PO Q8H 03/20/21 03/20/21 History tablet ondansetron HCl 8 mg tablet 8 mg PO Q8H PRN #30 tablet 03/20/21 03/20/21 Rx tamsulosin 0.4 mg PO BID 03/23/21 03/23/21 History Laboratory Tests 03/23/21 03/23/21 14:48 14:48 WBC 5.7 K/mm3 K/mm3 (4.5-10.0) RBC 4.10 M/mm3 L M/mm3 (4.6-6.20) Hgb 12.1 g/dL L g/dL (14.0-18.0) Hct 35.5 % L % (42.0-52.0) MCV 86.6 fl fl (80-100) MCH 29.5 pg pg (26-34) MCHC 34.1 g/dl g/dl (32-36) RDW 16.2 % H % (11.5-14.5) Plt Count 151 k/mm3 k/mm3 (150-375) MPV 9.7 fl fl (7.4-10.4) Immature Gran % (Auto) 0.4 % % (0-0.5) Neut % (Auto) 53.9 % % (45.5-73.1) Lymph % (Auto) 30.8 % % (18.3-44.2) [place] % (Auto) 13.1 % H % (2.6-8.5) Eos % (Auto) 1.4 % % (0-4.4) Baso % (Auto) 0.4 % % (0.2-1.2) Lymph # (Auto) 1.74 K/mm3 K/mm3 (0.9-3.2) [place] # (Auto) 0.7 K/mm3 H K/mm3 (0.1-0.6) Eos # (Auto) 0.1 K/mm3 K/mm3 (0-0.3) Baso # (Auto) 0.0 K/mm3 K/mm3 (0.0-0.1) Abs Immat Gran (auto) 0.02 K/mm3 K/mm3 (0.00-0.031) Absolute Neuts (auto) 3.1 K/mm3 K/mm3 (1.3-6.7) Absolute Nucleated RBC 0.0 K/mm3 K/mm3 (0.0-0.012) Nucleated RBC % 0.0 % % (0.0-0.2) % Immature Plt Fraction 3.2 % % (0.9-11.2) Sodium 136 mmol/L L mmol/L (137-145) Potassium 2.9 mmol/L L mmol/L (3.4-5.0) Chloride 97 mmol/L L mmol/L (98-107) Carbon Dioxide 34 mmol/L H mmol/L (22-30) Anion Gap 5 mmol/L L mmol/L (8-16) BUN 14 mg/dL mg/dL (9-20) Creatinine 1.00 mg/dL mg/dL (0.7-1.3) Estim Creat Clear Calc 54 ml/min ml/min Estimated GFR > 60 (59 - ) Glucose 117 mg/dL H mg/dL (65-110) Calcium 9.3 mg/dL mg/dL (8.4-10.2) Patient hx anesthesia problems: none Family hx anesthesia problems: none Results Review: All pre-operative results and documents have been reviewed as part of the pre-operative evaluation. [facility] Past Medical H
[2021-03-23] MEDS: LACTATED RINGERS 1,000 ML 30 ML IV CONT ×2 (16:30→17:42)
[2021-03-23] MEDS: ceFAZolin 2 GM/D5W 50 ML 2 GM/50 ML BAG IVPB (16:41)
[2021-03-23] MEDS: LIDOCAINE HCL 2% GEL UROJET 10 ML PKG MUCOUS MEM (16:58)
--- NOTE | 2021-03-23 17:02 | SUR.OPER ---
18fr/10ml balloon mcintyre catheter removed with no trauma noted. 100ml dark red colored urine noted.
--- NOTE | 2021-03-23 17:23 | W.PM.PROC2 ---
Procedure Note - Detailed Date of Procedure 03/23/21 Pre-op Diagnosis Hematuria, clot urinary retention Post-op Diagnosis same Procedure Performed Cystoscopy, clot urinary evacuation, cauterization of prostate and complicated placement of urethral catheter Surgeon Stewart Kelley MD Anesthesia general Description of Procedure Patient is brought to the operative suite was prepped draped routine sterile fashion while in a dorsal lithotomy position. 2% lidocaine jelly was introduced intraurethrally and systemic sedation is administered per the anesthesia department. Cystoscopy is undertaken with a 19 F rigid cystoscope. He has no urethral stricture but massive prostatic hyperplasia with a 4-5 cm prostatic urethra. He has both lateral lobe enlargement and a large median lobe. Prostate is vascular and oozing from multiple sites. Bladder shows a small amount of clot. Bladder slightly trabeculated. I could not identify the ureteral orifices. I saw no intravesical neoplasm. Evacuated the clot and attempted, as best I could, to cauterize his prostatic urethra with a rollerball electrode. Had difficulty placing a catheter but was eventually able to do so over a 0.035 in glidewire. We placed a 22 F hematuria catheter. Efflux was minimally blood-tinged at the termination. Drains Yes Packing No Pathology none sent Complications No immediate complications Condition stable Disposition PACU
[2021-03-23] MEDS: fentaNYL CITRATE INJ (*CRX) 100 MCG/2 ML VIAL 25 MCG IV PUSH ×4 (17:36→18:00)
--- NOTE | 2021-03-23 18:29 | ADMGEN ---
This patient, Dieudonne Mejia Jr., was admitted to Medical Room 348-01. Patient/family oriented to hospital policies and general routines including ID bracelet, bed and alarms, visiting hours, pain management, procedures, bathroom and other care routines, personal items, smoking policy, room service/diet, and visiting hours. Information on how to activate the Rapid Response Team has been discussed. Patient/Family are encouraged to report perceived risks to care and to ask questions if they do not understand what they are told or what they should do.
[2021-03-23] MEDS: DEXTROSE 5%/LACTATED RINGERS 1,000 ML 125 ML IV CONT (19:02)
[2021-03-23 19:23] LABS: Hematocrit 32.1 % (42.0-52.0); Hemoglobin 10.9 g/dL (14.0-18.0); Mean Corpuscular Hemoglobin 29.7 pg (26-34); Mean Corpuscular Volume 87.5 fl (80-100); Mean Platelet Volume 10.1 fl (7.4-10.4); Platelet Count Result 122 k/mm3 (150-375); Red Blood Count 3.67 M/mm3 (4.6-6.20); Red Cell Distribution Width 16.1 % (11.5-14.5); White Blood Count 4.8 K/mm3 (4.5-10.0)
[2021-03-23 19:33] LABS: Anion Gap 3 mmol/L (8-16); Blood Urea Nitrogen 13 mg/dL (9-20); Calcium 8.7 mg/dL (8.4-10.2); Carbon Dioxide 35 mmol/L (22-30); Chloride 97 mmol/L (98-107); Estimated CRCL calculation 59 ml/min; Estimated Glomerular Filt Rate > 60; Glucose 127 mg/dL (65-110); Potassium 3.2 mmol/L (3.4-5.0); Sodium 135 mmol/L (137-145)
--- NOTE | 2021-03-23 20:44 | PM.IMHP ---
H&P: HPI History of Present Illness Date/Time: 03/23/21 20:44Thifatmata is a 75-year-old male patient who has a history of stage IV esophageal cancer that has metastasized to the liver and spleen. The patient sees Dr. chambers for chemotherapy that he receives every 2 weeks. His next chemo treatment will be this next Saturday which the patient states he is going to take a break from. The patient also has a large prostate and had a Curtis catheter placed. The patient came to the emergency room with hematuria and urinary retention. The patient was seen by [facility] 1 nurse practitioner at the [place] [facility] office today and had the patient have outpatient CT scan performed that the urologist there felt indicated blood clots within the bladder in addition to enlarged prostate. The patient has had recurrent visits for a catheter that could not be drained. He had persistent hematuria. He noticed minimal clots. He denied any fever chills. He is not on any blood thinners. Urology has seen the patient and the patient was taken to OR for cystoscopy, clot urinary evacuation, cauterization of prostate and complicated placement of urethral catheter. The patient currently has a CBI with wine colored urine. Please see operative note. the patient's potassium was initially 2.9 and now it is 3.2. The patient was supplemented with IV potassium. The patient is being admitted to observation status on the date of service of 03/23/2021. Chief Complaint: hematuria Review of Systems Review of Systems: All systems reviewed & are unremarkable except as noted in HPI and below Constitutional: Constitutional: Reports as per HPI and Reports no additional constitutional complaints Eyes: Eyes: Reports as per HPI and Reports no additional eye complaints ENT: Reports system reviewed and no additional complaints, except as documented and Reports Normal hearing present Cardiovascular: Cardiovascular: Reports no additional cardiovascular complaints Respiratory: Respiratory: Reports no additional respiratory complaints and Reports no additional respiratory complaints Gastrointestinal: Gastrointestinal: Reports as per HPI and Reports no additional gastrointestinal complaints Musculoskeletal: Musculoskeletal: Reports no additional musculoskeletal complaints Integumentary/Breasts: Skin/Breast: Reports system reviewed and no additional complaints, except as docu and Reports as per HPI Neurologic: Reports system reviewed and no additional complaints, except as documented, Reports as per HPI and Reports Normal hearing present Psychiatric: Psychiatric: Reports no additional psychiatric complaints and Reports as per HPI Endocrine: Endocrine: Reports no additional endocrine complaints Hematologic/Lymphatic: Hematologic/Lymphatic: Reports no additional hematologic/lymphatic complaints Allergic/Immunologic: Allergic/Immunologic: Reports no additional allergic/immunologic complaints [facility] Past Medical History Medical History (Updated 03/23/21 @ 20:52 by Lorenza Spangler NP) Abnormal gastrointestinal PET scan BPH loc w urin obs/LUTS Esophageal cancer, stage IV Patient receives chemotherapy every 2 weeks and is due for chemotherapy March 27 Hematuria Hypertension Metastatic adenocarcinoma Port-A-Cath in place Psoriasis Surgical History Surgical History H/O arthroscopic knee surgery H/O cystoscopy H/O hernia repair Family History Family History Father Cerebrovascular accident Mother Family history of malignant neoplasm Acute myocardial infarction Sibling Family history of malignant neoplasm of kidney sister Social History Social History (Updated 03/23/21 @ 20:54 by Lorenza Spangler NP) Social History: the patient lives at home with his and he has 2 children. 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
[2021-03-23] MEDS: HYOSCYAMINE SULFATE 0.125 MG TABLET SUBLINGUAL (20:55)
--- NOTE | 2021-03-23 21:32 | PC.NURSE ---
spoke to lab regarding H&H series. last blood draw at t 1915. Okay to schedule blood draw Q6 from last draw.
[2021-03-24] MEDS: DEXTROSE 5%/LACTATED RINGERS 1,000 ML 125 ML IV CONT (03:14)
[2021-03-24] MEDS: ONDANSETRON HCL ODT 4 MG TABLET 8 MG PO (03:33)
[2021-03-24 03:38] LABS: Hematocrit 26.6 % (42.0-52.0); Hemoglobin 9.3 g/dL (14.0-18.0)
[2021-03-24 03:41] LABS: Anion Gap 5 mmol/L (8-16); Blood Urea Nitrogen 9 mg/dL (9-20); Calcium 8.4 mg/dL (8.4-10.2); Carbon Dioxide 30 mmol/L (22-30); Chloride 97 mmol/L (98-107); Estimated CRCL calculation 66 ml/min; Estimated Glomerular Filt Rate > 60; Glucose 152 mg/dL (65-110); Potassium 3.4 mmol/L (3.4-5.0); Sodium 132 mmol/L (137-145)
[2021-03-24 04:24] VITALS: BP 122/59; PULSE 57; RESP 18; TEMP 36.3; O2SAT 98
--- NOTE | 2021-03-24 07:42 | WPDUROPN2 ---
Progress Note: A&P Assessment and Plan (1) Hematuria: Code(s): R31.9 - Hematuria, unspecified Status: Acute (2) Acute urinary retention: Code(s): R33.8 - Other retention of urine Status: Acute Assessment and Plan: Difficult problem - urinary retention with a massive prostate that's now ozzing blood diffusely -> no amenable to spot cauterization. Bleeding persists despite large 3-way catheter and CBI overnight. In absence of history of coronary artery disease and unremarkable cardiac echo 03/06/2021 will consider IV Amicar. Risks of coronary events and occlusion of port-a-cath discussed with pt. Will consult with Dr. Helton about flushing chemotherapy port Subjective Subjective Date/Time Seen: 03/24/21 07:42 Persistent hematuria with clots. Clots cleared after minimal-moderate hand irrigation. Review of Systems Cardiovascular: Cardiovascular: Denies chest pain, Denies lightheadedness, Denies palpitations and Denies dyspnea Respiratory: Respiratory: Denies dyspnea Gastrointestinal: Gastrointestinal: Denies diarrhea, Denies nausea and Denies vomiting Genitourinary: Genitourinary: Denies hematuria and Denies dysuria Endocrine: Endocrine: Denies palpitations Exam Const: General: no acute distress Resp: Effort & Inspection: normal respiratory effort GI: Inspection: non-distended GI Palp: No abdominal tenderness and No Guarding due to palpation present (GI) Auscultation: normal bowel sounds Objective Data Vital Signs Vital Signs: Vital Signs - 24 hr 03/23/21 13:33 03/23/21 14:42 03/23/21 15:45 Temperature 97.9 F Pulse Rate 78 72 71 Respiratory Rate 18 18 16 Blood Pressure 122/74 140/78 129/72 Pulse Oximetry 100 100 100 03/23/21 16:21 03/23/21 17:25 03/23/21 17:40 Temperature 97.8 F 97.3 F L Pulse Rate 66 84 64 Respiratory Rate 14 20 14 Blood Pressure 107/57 L 129/71 127/67 Pulse Oximetry 99 100 100 03/23/21 17:55 03/23/21 18:31 03/23/21 18:39 Temperature 97.6 F 97.6 F Pulse Rate 65 61 61 Respiratory Rate 16 18 18 Blood Pressure 130/81 146/54 H 146/54 H Pulse Oximetry 97 100 100 03/23/21 18:45 03/23/21 20:53 03/23/21 23:38 Temperature 97.8 F 97.6 F 97.1 F L Pulse Rate 57 L 78 55 L Respiratory Rate 18 18 18 Blood Pressure 140/63 152/89 H 124/69 Pulse Oximetry 100 100 99 03/24/21 04:24 Temperature 97.4 F L Pulse Rate 57 L Respiratory Rate 18 Blood Pressure 122/59 L Pulse Oximetry 98 Intake/Output Intake/Output: Intake & Output 03/21/21 03/22/21 03/23/21 03/24/21 23:59 23:59 23:59 23:59 Intake Total 250 1644 Output Total 4150 1635 Balance -7350 -9440 Meds/Results Medications: Active Medications Generic Name Dose Route Start Last Admin Trade Name Freq PRN Reason Stop Dose Admin Hydrocodone Bitart/Acetaminophen 1 tab 03/23/21 18:11 Hydrocodone/Acetaminophen (*Crx) 5-325 Mg Tablet PO Q4H PRN Pain Rated 1-6 Cephalexin HCl 500 mg 03/24/21 13:00 Cephalexin 500 Mg Capsule PO QID [facility] Clobetasol Propionate 1 applic 03/23/21 18:11 Clobetasol Propionate 0.05% Oint 30 Gm TOPICAL DAILY PRN PSORIASIS Docusate Sodium 100 mg 03/24/21 09:00 Docusate Sodium 100 Mg Capsule PO BID [facility] Enalapril Maleate 10 mg 03/24/21 09:00 Enalapril Maleate 10 Mg Tablet PO DAILY [facility] Fentanyl Citrate 25 mcg 03/23/21 16:24 03/23/21 18:00 Fentanyl Citrate Inj (*Crx) 100 Mcg/2 Ml Vial IV PUSH 25 mcg Q2M PRN Administration Pain Ferrous Sulfate 324 mg 03/24/21 08:00 Ferrous Sulfate 324 Mg Tablet PO DAILY@0800 [facility] Finasteride 5 mg 03/24/21 09:00 Finasteride 5 Mg Tablet PO DAILY [facility] Hydrochlorothiazide 25 mg 03/24/21 09:00 Hydrochlorothiazide 25 Mg Tablet PO DAILY [facility] Hyoscyamine 0.125 mg 03/23/21 18:11 03/23/21 20:55 Hyoscyamine Sulfate 0.125 Mg Tablet SUBLINGUAL 0.125 mg Q6H PRN Administration Bladder Spasm Acet
[2021-03-24] MEDS: TAMSULOSIN HCL 0.4 MG CAPSULE PO ×2 (08:26→17:47)
[2021-03-24] MEDS: PROCHLORPERAZINE MALEATE 5 MG TABLET 10 MG PO (08:26)
[2021-03-24] MEDS: hydroCHLOROthiazide 25 MG TABLET PO (08:26)
[2021-03-24] MEDS: ENALAPRIL MALEATE 10 MG TABLET PO (08:26)
[2021-03-24] MEDS: FINASTERIDE 5 MG TABLET PO (08:27)
--- NOTE | 2021-03-24 09:00 | WPDANESPN ---
Anes - Prog Note Post-Op Date/Time: 03/24/21 09:00 Cardiovascular status: normal Respiratory status: normal Airway patency: baseline Mental status: baseline Post-Op hydration status: normal Vital Signs: Last Vital Signs Temp 36.3 C L 03/24/21 04:24 Pulse 57 L 03/24/21 04:24 Resp 18 03/24/21 04:24 BP 122/59 L 03/24/21 04:24 Pulse Ox 98 03/24/21 04:24 Pain Score (VAS): 0 I/O: Intake & Output 03/23/21 03/24/21 03/24/21 23:59 07:59 15:59 Intake Total 250 1644 240 Output Total 4150 2725 Balance -3900 -1081 240 Laboratory Tests 03/24/21 03:23 03/24/21 03:23 03/23/21 03/23/21 03/23/21 14:48 14:48 19:14 WBC 5.7 4.8 RBC 4.10 L 3.67 L Hgb 12.1 L 10.9 L Hct 35.5 L 32.1 L MCV 86.6 87.5 MCH 29.5 29.7 MCHC 34.1 34.0 RDW 16.2 H 16.1 H Plt Count 151 122 L MPV 9.7 10.1 Immature Gran % (Auto) 0.4 Neut % (Auto) 53.9 Lymph % (Auto) 30.8 [place] % (Auto) 13.1 H Eos % (Auto) 1.4 Baso % (Auto) 0.4 Lymph # (Auto) 1.74 [place] # (Auto) 0.7 H Eos # (Auto) 0.1 Baso # (Auto) 0.0 Abs Immat Gran (auto) 0.02 Absolute Neuts (auto) 3.1 Absolute Nucleated RBC 0.0 Nucleated RBC % 0.0 % Immature Plt Fraction 3.2 Sodium 136 L Potassium 2.9 L Chloride 97 L Carbon Dioxide 34 H Anion Gap 5 L BUN 14 Creatinine 1.00 Estim Creat Clear Calc 54 Estimated GFR > 60 Glucose 117 H Calcium 9.3 03/23/21 03/24/21 03/24/21 19:14 03:23 03:23 WBC RBC Hgb 9.3 L Hct 26.6 L MCV MCH MCHC RDW Plt Count MPV Immature Gran % (Auto) Neut % (Auto) Lymph % (Auto) [place] % (Auto) Eos % (Auto) Baso % (Auto) Lymph # (Auto) [place] # (Auto) Eos # (Auto) Baso # (Auto) Abs Immat Gran (auto) Absolute Neuts (auto) Absolute Nucleated RBC Nucleated RBC % % Immature Plt Fraction Sodium 135 L 132 L Potassium 3.2 L 3.4 Chloride 97 L 97 L Carbon Dioxide 35 H 30 Anion Gap 3 L 5 L BUN 13 9 Creatinine 0.90 0.80 Estim Creat Clear Calc 59 66 Estimated GFR > 60 > 60 Glucose 127 H 152 H Calcium 8.7 8.4 Post-procedural complaints: none Patient Feedback: Patient satisfied with anesthetic care.
[2021-03-24] MEDS: HYOSCYAMINE SULFATE 0.125 MG TABLET SUBLINGUAL (09:25)
[2021-03-24 09:54] LABS: Hematocrit 31.1 % (42.0-52.0); Hemoglobin 10.7 g/dL (14.0-18.0)
--- NOTE | 2021-03-24 11:36 | PM.IMPN ---
Progress Note: A&P Assessment and Plan (1) Hematuria: Code(s): R31.9 - Hematuria, unspecified Status: Acute Assessment and Plan: He is s/p cystoscopy, urinary clot evacuation, cauterization of prostate and complicated placement of urethral catheter on 03/23/[address] Kelley. Urology managing. Consultation is appreciated Continue CBI Monitor H&H closely. Remaining stable at this time IV Amicar being considered per urology (2) Acute urinary retention: Code(s): R33.8 - Other retention of urine Status: Acute Assessment and Plan: Likely secondary to BPH. Continue Curtis. Appreciate urology consult. Continue Flomax and Proscar (3) BPH loc w urin obs/LUTS: Code(s): N40.1 - Benign prostatic hyperplasia with lower urinary tract symptoms Status: Chronic Assessment and Plan: As above. Levsin prn bladder spasm. (4) Hypertension: Code(s): I10 - Essential (primary) hypertension Status: Chronic Assessment and Plan: Blood pressure reviewed and has been stable. Last BP 122/59. Continue home enalapril and HCTZ (5) Esophageal cancer, stage IV: Code(s): C15.9 - Malignant neoplasm of esophagus, unspecified Status: Chronic Assessment and Plan: With metastases to liver. This is being managed by oncologist, Dr. Helton. Last chemotherapy was 03/13/2021. Scheduled for next chemo on 03/27 which is being postponed. Dr. Helton is aware of the patient's admission. He does endorse generalized weakness and poor appetite related to his chemotherapy. Will initiate dietary supplements (6) Psoriasis: Code(s): L40.9 - Psoriasis, unspecified Status: Chronic Assessment and Plan: No acute issues. Continue with clobetasol. (7) Normocytic anemia: Code(s): D64.9 - Anemia, unspecified Status: Acute Assessment and Plan: Review of prior labs demonstrated mild anemia, likely related to cancer. Hemoglobin hematocrit have declined, likely related to persistent hematuria. H&H remaining stable today. Last hemoglobin 10.7. Repeat this evening to ensure remaining stable. Subjective Date/time seen: 03/24/21 11:36 Interval history: Date of service: 03/24/2021 Dieudonne Mejia is a 75-year-old male with a history BPH, esophageal cancer with metastases to the liver, and hypertension who is seen in follow-up for hematuria. He has had issues with urinary retention and clots. He underwent cystoscopy with urinary clot evacuation and cauterization of prostate on 03/23. He tolerated procedure well. He is comfortable at this time although notes that with movement he will have episodes of pain on the distal end of his penis. He notes that his urine has been clear orange/pink since starting his CBI but intermittently will become bright red again, mostly when he moves. He finds that lying flat helps to prevent this. Additionally, he endorses weakness and poor appetite related to his cancer and chemotherapy. Over the past 2-3 weeks, he estimates he has lost about 10 pounds. He feels his appetite is improving somewhat today. He denies nausea, vomiting, fever, or chills. He had a regular bowel movement last night. No shortness breath, cough, chest pain, or palpitations. Review of Systems Review of Systems: All systems reviewed & are unremarkable except as noted in HPI and below Exam Narrative: Mr. Mejia is a well-nourished, chronically ill-appearing 75-year-old male who is lying semi recumbent in a recliner. He appears comfortable and is in NARD. Neuro: awake, alert and oriented x4, speech clear, no focal neuro deficits noted HEENMT: normocephalic, atraumatic, EOMI, sclerae anicteric, moist oral mucosa Neck: supple, no lymphadenopathy Respiratory: clear to auscultation anteriorly, nonlabored breathing Cardio: regular rate, regular rhythm with S1-S2 Abdomen: nondistended, normoactive bowel s
[2021-03-24 12:00] VITALS: BP 94/52; PULSE 65; RESP 16; TEMP 36.2; O2SAT 96
[2021-03-24] MEDS: CEPHALEXIN 500 MG CAPSULE PO ×3 (12:03→20:13)
[2021-03-24 14:09] VITALS: BMI 27.1
[2021-03-24 16:31] VITALS: BP 110/65; PULSE 61; RESP 18; TEMP 37; O2SAT 100
[2021-03-24 17:35] LABS: Hematocrit 27.8 % (42.0-52.0); Hemoglobin 9.4 g/dL (14.0-18.0)
[2021-03-24] MEDS: WATER FOR IRRIGATION, STERILE 1,000 ML BOTTLE 1000 ML ×2 (17:54→17:55)
[2021-03-24 18:34] LABS: Hematocrit 25.2 % (42.0-52.0); Hemoglobin 8.7 g/dL (14.0-18.0); Mean Corpuscular HGB Conc 34.5 g/dl (32-36); Mean Corpuscular Hemoglobin 29.7 pg (26-34); Mean Platelet Volume 9.9 fl (7.4-10.4); Platelet Count Result 104 k/mm3 (150-375); Red Blood Count 2.93 M/mm3 (4.6-6.20); Red Cell Distribution Width 16.3 % (11.5-14.5); White Blood Count 5.4 K/mm3 (4.5-10.0)
[2021-03-24 18:44] LABS: Anion Gap 4 mmol/L (8-16); Blood Urea Nitrogen 9 mg/dL (9-20); Calcium 8.5 mg/dL (8.4-10.2); Carbon Dioxide 33 mmol/L (22-30); Chloride 98 mmol/L (98-107); Estimated CRCL calculation 66 ml/min; Estimated Glomerular Filt Rate > 60; Glucose 100 mg/dL (65-110); Sodium 135 mmol/L (137-145)
[2021-03-24 22:00] VITALS: BP 106/52; PULSE 61; RESP 21; TEMP 36.2; O2SAT 100
[2021-03-25 00:51] VITALS: O2SAT 97
[2021-03-25 01:04] LABS: Hematocrit 25.5 % (42.0-52.0); Hemoglobin 8.8 g/dL (14.0-18.0)
[2021-03-25 06:00] VITALS: BP 104/58; PULSE 77; RESP 20; TEMP 36.5; O2SAT 98
[2021-03-25] MEDS: ENALAPRIL MALEATE 10 MG TABLET PO (08:13)
[2021-03-25] MEDS: CEPHALEXIN 500 MG CAPSULE PO ×4 (08:13→20:10)
[2021-03-25] MEDS: TAMSULOSIN HCL 0.4 MG CAPSULE PO ×2 (08:13→16:42)
[2021-03-25] MEDS: PROCHLORPERAZINE MALEATE 5 MG TABLET 10 MG PO (08:14)
[2021-03-25] MEDS: FINASTERIDE 5 MG TABLET PO (08:14)
[2021-03-25 09:00] LABS: Hematocrit 27.9 % (42.0-52.0); Hemoglobin 9.6 g/dL (14.0-18.0)
[2021-03-25 14:00] VITALS: BP 115/65; PULSE 64; RESP 16; TEMP 36.4; O2SAT 100
--- NOTE | 2021-03-25 14:52 | PM.IMPN ---
Progress Note: A&P Assessment and Plan (1) Hematuria: Code(s): R31.9 - Hematuria, unspecified Status: Acute Assessment and Plan: He is s/p cystoscopy, urinary clot evacuation, cauterization of prostate and complicated placement of urethral catheter on 03/23/[address] Kelley. Urology managing. Consultation is appreciated Continue CBI Monitor H&H closely. Remaining stable at this time IV Amicar being considered per urology (2) Acute urinary retention: Code(s): R33.8 - Other retention of urine Status: Acute Assessment and Plan: Likely secondary to BPH. Continue Curtis. Appreciate urology consult. Continue Flomax and Proscar (3) BPH loc w urin obs/LUTS: Code(s): N40.1 - Benign prostatic hyperplasia with lower urinary tract symptoms Status: Chronic Assessment and Plan: As above. Levsin prn bladder spasm. (4) Hypertension: Code(s): I10 - Essential (primary) hypertension Status: Chronic Assessment and Plan: Blood pressure reviewed and has been stable. Last BP 122/59. Continue home enalapril. HCTZ on hold. (5) Esophageal cancer, stage IV: Code(s): C15.9 - Malignant neoplasm of esophagus, unspecified Status: Chronic Assessment and Plan: With metastases to liver. This is being managed by oncologist, Dr. Helton. Last chemotherapy was 03/13/2021. Scheduled for next chemo on 03/27 which is being postponed. Dr. Helton is aware of the patient's admission. He does endorse generalized weakness and poor appetite related to his chemotherapy. Will initiate dietary supplements (6) Psoriasis: Code(s): L40.9 - Psoriasis, unspecified Status: Chronic Assessment and Plan: No acute issues. Continue with clobetasol. (7) Normocytic anemia: Code(s): D64.9 - Anemia, unspecified Status: Acute Assessment and Plan: Review of prior labs demonstrated mild anemia, likely related to cancer. Hemoglobin hematocrit have declined, likely related to persistent hematuria. H&H remaining stable today. Continue monitoring closely. (8) Hypokalemia: Code(s): E87.6 - Hypokalemia Status: Acute Assessment and Plan: Monitored and replaced as appropriate. Likely secondary to decreased PO intake. Subjective Date/time seen: 03/25/21 14:52 Interval history: Date of service: 03/24/2021 Dieudonne Mejia is a 75-year-old male with a history BPH, esophageal cancer with metastases to the liver, and hypertension who is seen in follow-up for hematuria. He has had issues with urinary retention and clots. He underwent cystoscopy with urinary clot evacuation and cauterization of prostate on 03/23. He tolerated procedure well. He is comfortable at this time although notes that with movement he will have episodes of pain on the distal end of his penis. He notes that his urine has been clear orange/pink since starting his CBI but intermittently will become bright red again, mostly when he moves. He finds that lying flat helps to prevent this. Additionally, he endorses weakness and poor appetite related to his cancer and chemotherapy. Over the past 2-3 weeks, he estimates he has lost about 10 pounds. He also notes he is not eating as much because he does not like the food here. He denies nausea, vomiting, fever, or chills. He is having regular bowel movements. No shortness breath, cough, chest pain, or palpitations. Review of Systems Review of Systems: General: Denies fevers, chills, +weight loss Eyes: Denies vision changes or eye pain ENT: Denies nasal congestion or sore throat Respiratory: Denies cough or shortness of breath Cardiovascular: Denies chest pain, palpitations, or lower extremity edema Gastrointestinal: Denies abdominal pain, vomiting, or diarrhea Genitourinary: see HPI Musculoskeletal: Denies back pain or muscle aches Neurological: Denies headache, paraesthesias,
[2021-03-25 15:21] LABS: Hematocrit 25.7 % (42.0-52.0); Hemoglobin 8.7 g/dL (14.0-18.0)
[2021-03-25] MEDS: POTASSIUM CHLORIDE 20 MEQ TABLET 40 MEQ PO (16:42)
[2021-03-25 17:47] LABS: Hemoglobin 9.1 g/dL (14.0-18.0); Mean Corpuscular HGB Conc 33.7 g/dl (32-36); Mean Corpuscular Hemoglobin 29.7 pg (26-34); Mean Corpuscular Volume 88.2 fl (80-100); Platelet Count Result 115 k/mm3 (150-375); Red Blood Count 3.06 M/mm3 (4.6-6.20); Red Cell Distribution Width 16.9 % (11.5-14.5); White Blood Count 4.8 K/mm3 (4.5-10.0)
[2021-03-25 18:03] LABS: Anion Gap 3 mmol/L (8-16); Blood Urea Nitrogen 9 mg/dL (9-20); Calcium 8.4 mg/dL (8.4-10.2); Carbon Dioxide 34 mmol/L (22-30); Chloride 96 mmol/L (98-107); Estimated CRCL calculation 66 ml/min; Estimated Glomerular Filt Rate > 60; Glucose 120 mg/dL (65-110); Potassium 2.8 mmol/L (3.4-5.0); Sodium 133 mmol/L (137-145)
--- NOTE | 2021-03-25 18:14 | WPDUROPN2 ---
Progress Note: A&P Assessment and Plan (1) Hematuria: Code(s): R31.9 - Hematuria, unspecified Status: Acute Assessment and Plan: - urinary retention with a massive prostate that's now ozzing blood diffusely -> no amenable to spot cauterization. - patient's urine is now clear on slow CBI. His H&H is stable. - Given the size of the prostate, he is not amenable to endoscopic urologic procedure. The patient is candidate for prostate artery embolization and the patient is interested in proceeding with this procedure performed by Interventional Radiology at only a few facilities in the [facility]. We will consider patient transfer or outpatient evaluation by Interventional Radiology (2) Acute urinary retention: Code(s): R33.8 - Other retention of urine Status: Acute Subjective Subjective Date/Time Seen: 03/25/21 18:14 No new complaints. Urine is draining well with slow CBI Exam Narrative: the patient is awake alert oriented in no acute distress. His breathing is unlabored. His abdomen is soft. Patient's Curtis catheter is in place draining clear urine with a slow CBI Objective Data Vital Signs Vital Signs: Vital Signs - 24 hr 03/24/21 22:00 03/25/21 00:51 03/25/21 06:00 Temperature 36.2 C L 36.5 C Pulse Rate 61 77 Respiratory Rate 21 H 20 Blood Pressure 106/52 L 104/58 L Pulse Oximetry 100 97 98 03/25/21 14:00 Temperature 36.4 C L Pulse Rate 64 Respiratory Rate 16 Blood Pressure 115/65 Pulse Oximetry 100 Intake/Output Intake/Output: Intake & Output 03/22/21 03/23/21 03/24/21 03/25/21 23:59 23:59 23:59 23:59 Intake Total 250 04741 720 Output Total 4150 09953 275 Balance -3900 1339 445 Meds/Results Medications: Active Medications Generic Name Dose Route Start Last Admin Trade Name Freq PRN Reason Stop Dose Admin Hydrocodone Bitart/Acetaminophen 1 tab 03/23/21 18:11 Hydrocodone/Acetaminophen (*Crx) 5-325 Mg Tablet PO Q4H PRN Pain Rated 1-6 Cephalexin HCl 500 mg 03/24/21 13:00 03/25/21 16:42 Cephalexin 500 Mg Capsule PO 500 mg QID JOAQUIM Administration Clobetasol Propionate 1 applic 03/23/21 18:11 Clobetasol Propionate 0.05% Oint 30 Gm TOPICAL DAILY PRN PSORIASIS Docusate Sodium 100 mg 03/24/21 09:00 03/25/21 16:39 Docusate Sodium 100 Mg Capsule PO Not Given BID JOAQUIM Enalapril Maleate 10 mg 03/24/21 09:00 03/25/21 08:13 Enalapril Maleate 10 Mg Tablet PO 10 mg DAILY JOAQUIM Administration Fentanyl Citrate 25 mcg 03/23/21 16:24 03/23/21 18:00 Fentanyl Citrate Inj (*Crx) 100 Mcg/2 Ml Vial IV PUSH 25 mcg Q2M PRN Administration Pain Ferrous Sulfate 324 mg 03/24/21 08:00 03/25/21 08:13 Ferrous Sulfate 324 Mg Tablet PO Not Given DAILY@0800 JOAQUIM Finasteride 5 mg 03/24/21 09:00 03/25/21 08:14 Finasteride 5 Mg Tablet PO 5 mg DAILY JOAQUIM Administration Hydrochlorothiazide 25 mg 03/24/21 09:00 03/24/21 08:26 Hydrochlorothiazide 25 Mg Tablet PO 25 mg DAILY JOAQUIM Administration Hyoscyamine 0.125 mg 03/23/21 18:11 03/24/21 09:25 Hyoscyamine Sulfate 0.125 Mg Tablet SUBLINGUAL 0.125 mg Q6H PRN Administration Bladder Spasm Lactated Ringer's 1,000 mls @ 30 mls/hr 03/23/21 16:25 03/25/21 08:47 Lr - Lactated Ringers Iv IV CONT Not Given .Q24H JOAQUIM Lactated Ringer's 1,000 mls @ 30 mls/hr 03/23/21 16:25 03/25/21 08:48 Lr - Lactated Ringers Iv IV CONT Not Given .Q24H [facility] Aminocaproic Acid 5,000 mg/ 250 mls @ 50 mls/hr 03/24/21 09:00 Dextrose IV CONT .Q5H [facility] Lidocaine/Prilocaine 1 each 03/23/21 18:11 Lidocaine/Prilocaine Cream 2.5-2.5% Tube TOPICAL PRN PRN Pain AT CATHETER SITE Morphine Sulfate 2 mg 03/23/21 18:11 Morphine Sulfate (*Crx) 2 Mg/Ml Inj IV PUSH Q2H PRN Pain Rated 7-10 Naloxone HCl 0.1 mg 03/23/21 18:11 Naloxone Hcl 0.4 Mg/Ml Vial IV PUSH Q2M PRN Opi
[2021-03-25 21:39] VITALS: BP 109/54; PULSE 65; RESP 14; TEMP 37.1; O2SAT 97
[2021-03-25 23:20] LABS: Hematocrit 23.6 % (42.0-52.0)
[2021-03-26 05:07] VITALS: BP 122/64; PULSE 66; RESP 14; TEMP 37.1; O2SAT 99
[2021-03-26 05:36] LABS: Hematocrit 25.2 % (42.0-52.0); Hemoglobin 8.5 g/dL (14.0-18.0)
[2021-03-26 05:49] LABS: Anion Gap 2 mmol/L (8-16); Blood Urea Nitrogen 8 mg/dL (9-20); Calcium 8.4 mg/dL (8.4-10.2); Carbon Dioxide 31 mmol/L (22-30); Chloride 100 mmol/L (98-107); Estimated CRCL calculation 75 ml/min; Estimated Glomerular Filt Rate > 60; Glucose 107 mg/dL (65-110); Potassium 3.1 mmol/L (3.4-5.0); Sodium 133 mmol/L (137-145)
--- NOTE | 2021-03-26 07:09 | WPDUROPN2 ---
Progress Note: A&P Assessment and Plan (1) Hematuria: Code(s): R31.9 - Hematuria, unspecified Status: Acute Assessment and Plan: - urinary retention with a massive prostate that's now ozzing blood diffusely -> no amenable to spot cauterization. - patient's urine is now clear on slow CBI. His H&H is stable. I have stopped the CBI this morning - Given the size of the prostate, he is not amenable to endoscopic urologic procedure. The patient is candidate for prostate artery embolization and the patient is interested in proceeding with this procedure performed by Interventional Radiology at only a few facilities in the [facility]. - if urine remains clear with CBI stopped, I would expect the patient to be able to be discharged home with Curtis catheter in placed & plan for outpatient evaluation by Interventional Radiology for prostate artery embolization (2) Acute urinary retention: Code(s): R33.8 - Other retention of urine Status: Acute Subjective Subjective Date/Time Seen: 03/26/21 07:09 - no overnight events - urine remains clear on low CBI Exam Narrative: patient is awake and alert no acute distress. breathing is unlabored. Curtis catheter is placed with slow CBI. The urine is clear Objective Data Vital Signs Vital Signs: Vital Signs - 24 hr 03/25/21 14:00 03/25/21 21:39 03/26/21 05:07 Temperature 36.4 C L 37.1 C 37.1 C Pulse Rate 64 65 66 Respiratory Rate 16 14 14 Blood Pressure 115/65 109/54 L 122/64 Pulse Oximetry 100 97 99 Intake/Output Intake/Output: Intake & Output 03/23/21 03/24/21 03/25/21 03/26/21 23:59 23:59 23:59 23:59 Intake Total 250 20470 96042 Output Total 7991 70671 36901 Balance -8727 7241 -0088 Meds/Results Medications: Active Medications Generic Name Dose Route Start Last Admin Trade Name Freq PRN Reason Stop Dose Admin Hydrocodone Bitart/Acetaminophen 1 tab 03/23/21 18:11 Hydrocodone/Acetaminophen (*Crx) 5-325 Mg Tablet PO Q4H PRN Pain Rated 1-6 Cephalexin HCl 500 mg 03/24/21 13:00 03/25/21 20:10 Cephalexin 500 Mg Capsule PO 500 mg QID JOAQUIM Administration Clobetasol Propionate 1 applic 03/23/21 18:11 Clobetasol Propionate 0.05% Oint 30 Gm TOPICAL DAILY PRN PSORIASIS Docusate Sodium 100 mg 03/24/21 09:00 03/25/21 16:39 Docusate Sodium 100 Mg Capsule PO Not Given BID [facility] Enalapril Maleate 10 mg 03/24/21 09:00 03/25/21 08:13 Enalapril Maleate 10 Mg Tablet PO 10 mg DAILY JOAQUIM Administration Fentanyl Citrate 25 mcg 03/23/21 16:24 03/23/21 18:00 Fentanyl Citrate Inj (*Crx) 100 Mcg/2 Ml Vial IV PUSH 25 mcg Q2M PRN Administration Pain Ferrous Sulfate 324 mg 03/24/21 08:00 03/25/21 08:13 Ferrous Sulfate 324 Mg Tablet PO Not Given DAILY@0800 [facility] Finasteride 5 mg 03/24/21 09:00 03/25/21 08:14 Finasteride 5 Mg Tablet PO 5 mg DAILY [facility] Administration Hydrochlorothiazide 25 mg 03/24/21 09:00 03/24/21 08:26 Hydrochlorothiazide 25 Mg Tablet PO 25 mg DAILY [facility] Administration Hyoscyamine 0.125 mg 03/23/21 18:11 03/24/21 09:25 Hyoscyamine Sulfate 0.125 Mg Tablet SUBLINGUAL 0.125 mg Q6H PRN Administration Bladder Spasm Lactated Ringer's 1,000 mls @ 30 mls/hr 03/23/21 16:25 03/25/21 08:47 Lr - Lactated Ringers Iv IV CONT Not Given .Q24H [facility] Lactated Ringer's 1,000 mls @ 30 mls/hr 03/23/21 16:25 03/25/21 08:48 Lr - Lactated Ringers Iv IV CONT Not Given .Q24H [facility] Aminocaproic Acid 5,000 mg/ 250 mls @ 50 mls/hr 03/24/21 09:00 Dextrose IV CONT .Q5H [facility] Lidocaine/Prilocaine 1 each 03/23/21 18:11 Lidocaine/Prilocaine Cream 2.5-2.5% Tube TOPICAL PRN PRN Pain AT CATHETER SITE Morphine Sulfate 2 mg 03/23/21 18:11 Morphine Sulfate (*Crx) 2 Mg/Ml Inj IV PUSH Q2H PRN Pain Rated 7-10 Naloxone HCl 0.1 mg 03/23/21 18:11 Naloxone Hcl 0.4 Mg/Ml Vial
[2021-03-26] MEDS: TAMSULOSIN HCL 0.4 MG CAPSULE PO ×2 (10:19→16:40)
[2021-03-26] MEDS: FINASTERIDE 5 MG TABLET PO (10:19)
[2021-03-26] MEDS: ENALAPRIL MALEATE 10 MG TABLET PO (10:19)
[2021-03-26] MEDS: POTASSIUM CHLORIDE 20 MEQ TABLET.ER 40 MEQ PO (10:19)
[2021-03-26] MEDS: CEPHALEXIN 500 MG CAPSULE PO ×4 (10:19→20:06)
[2021-03-26] MEDS: PROCHLORPERAZINE MALEATE 5 MG TABLET 10 MG PO (10:20)
--- NOTE | 2021-03-26 12:00 | PM.IMPN ---
Progress Note: A&P Assessment and Plan (1) Hematuria: Code(s): R31.9 - Hematuria, unspecified Status: Acute Assessment and Plan: He is s/p cystoscopy, urinary clot evacuation, cauterization of prostate and complicated placement of urethral catheter on 03/23/[address] Kelley. Monitor H&H closely. Remaining stable at this time Discussed case w/ urologist Dr. Mares who saw the patient today, Dr. Kelley who performed the procedure, and Dr. Frost urology at [place]. Dr. Frost accepts transfer at this time. Per Dr. Kelley pt will likely need prostatic artery embolization. Currently waiting on a bed at [place] (2) Acute urinary retention: Code(s): R33.8 - Other retention of urine Status: Acute Assessment and Plan: Likely secondary to BPH. Continue Curtis. Continue Flomax and Proscar. See above. (3) BPH loc w urin obs/LUTS: Code(s): N40.1 - Benign prostatic hyperplasia with lower urinary tract symptoms Status: Chronic Assessment and Plan: As above. Levsin prn bladder spasm. (4) Hypertension: Code(s): I10 - Essential (primary) hypertension Status: Chronic Assessment and Plan: Blood pressure reviewed and has been stable. Last BP 122/64. Continue home enalapril. HCTZ on hold. (5) Esophageal cancer, stage IV: Code(s): C15.9 - Malignant neoplasm of esophagus, unspecified Status: Chronic Assessment and Plan: With metastases to liver. This is being managed by oncologist, Dr. Helton. Last chemotherapy was 03/13/2021. Scheduled for next chemo on 03/27 which is being postponed. Dr. Helton is aware of the patient's admission. He does endorse generalized weakness and poor appetite related to his chemotherapy. Will initiate dietary supplements. (6) Psoriasis: Code(s): L40.9 - Psoriasis, unspecified Status: Chronic Assessment and Plan: No acute issues. Continue with clobetasol. (7) Normocytic anemia: Code(s): D64.9 - Anemia, unspecified Status: Acute Assessment and Plan: Review of prior labs demonstrated mild anemia, likely related to cancer. Hemoglobin hematocrit have declined, likely related to persistent hematuria. H&H remaining stable today. Continue monitoring closely. (8) Hypokalemia: Code(s): E87.6 - Hypokalemia Status: Acute Assessment and Plan: Monitored and replaced as appropriate. Likely secondary to decreased PO intake and diarrhea. Subjective Date/time seen: 03/26/21 12:00 Interval history: Dieudonne Mejia is a 75-year-old male with a history BPH, esophageal cancer with metastases to the liver, and hypertension who is seen in follow-up for hematuria. He has had issues with urinary retention and clots. He underwent cystoscopy with urinary clot evacuation and cauterization of prostate on 03/23. He tolerated procedure well. He is comfortable at this time although notes that with movement he will have episodes of pain on the distal end of his penis. He notes that his urine has been clear orange/pink since starting his CBI but intermittently will become bright red again, mostly when he moves. Additionally, he endorses weakness and poor appetite related to his cancer and chemotherapy. Over the past 2-3 weeks, he estimates he has lost about 10 pounds. He also notes he is not eating as much because he does not like the food here. He denies nausea, vomiting, fever, or chills. No shortness breath, cough, chest pain, or palpitations. Pt does note an episode of diarrhea yesterday morning and again this morning. Review of Systems Review of Systems: General: Denies fevers, chills, +weight loss Eyes: Denies vision changes or eye pain ENT: Denies nasal congestion or sore throat Respiratory: Denies cough or shortness of breath Cardiovascular: Denies chest pain, palpitations, or lower extremity edema Gastrointestinal: Denies abdomina
[2021-03-26 13:41] LABS: Anion Gap 4 mmol/L (8-16); Blood Urea Nitrogen 10 mg/dL (9-20); Calcium 8.5 mg/dL (8.4-10.2); Carbon Dioxide 32 mmol/L (22-30); Chloride 99 mmol/L (98-107); Estimated CRCL calculation 66 ml/min; Estimated Glomerular Filt Rate > 60; Glucose 108 mg/dL (65-110); Potassium 3.5 mmol/L (3.4-5.0); Sodium 135 mmol/L (137-145)
[2021-03-26 14:00] VITALS: BP 125/61; PULSE 71; RESP 16; TEMP 35.9; O2SAT 99
[2021-03-26 15:12] LABS: Hematocrit 27.8 % (42.0-52.0); Hemoglobin 9.2 g/dL (14.0-18.0)
[2021-03-26 18:03] LABS: Hematocrit 25.2 % (42.0-52.0); Hemoglobin 8.3 g/dL (14.0-18.0); Mean Corpuscular HGB Conc 32.9 g/dl (32-36); Mean Corpuscular Hemoglobin 29.6 pg (26-34); Mean Platelet Volume 9.5 fl (7.4-10.4); Platelet Count Result 113 k/mm3 (150-375); Red Cell Distribution Width 17.2 % (11.5-14.5); White Blood Count 4.5 K/mm3 (4.5-10.0)
[2021-03-26 18:12] LABS: Anion Gap 1 mmol/L (8-16); Blood Urea Nitrogen 11 mg/dL (9-20); Calcium 8.2 mg/dL (8.4-10.2); Carbon Dioxide 33 mmol/L (22-30); Chloride 101 mmol/L (98-107); Estimated CRCL calculation 75 ml/min; Estimated Glomerular Filt Rate > 60; Glucose 110 mg/dL (65-110); Potassium 3.8 mmol/L (3.4-5.0); Sodium 135 mmol/L (137-145)
[2021-03-26 19:50] VITALS: BP 120/66; PULSE 72; RESP 16; TEMP 36.2; O2SAT 96
--- NOTE | 2021-03-27 06:45 | PM.TDS ---
Transfer Discharge Sum: Prov Provider Date of admission: 03/24/21 09:27 Primary care physician: Fuentes Nguyễn MD Admitting clinician: Indra Carrasco MD Consults: 03/23/21 15:27 Consult to Physician Routine Comment: Per ER notes Dr was consulted, (TH,US) Consulting Provider: Stewart Kelley physically impaired teacher/MD group to consult: aileen Reason for consultation: hematuria, uti Has provider been notified: Yes DS: Admitting Diagnosis Discharge Date 03/26/21 Admitting Diagnosis hematuria DS: Discharge Diagnosis Discharge Diagnosis (1) Hematuria: Code(s): R31.9 - Hematuria, unspecified Status: Acute Assessment and Plan: He is s/p cystoscopy, urinary clot evacuation, cauterization of prostate and complicated placement of urethral catheter on 03/23/[address] Kelley. Monitored H&H closely. Remaining stable at this time Discussed case w/ urologist Dr. Mares who saw the patient over the weekend, Dr. Kelley who performed the procedure, and Dr. Frost urology at [place]. Dr. Frost accepted transfer at this time. Per Dr. Kelley pt will likely need prostatic artery embolization. Pt transferred to [place] in stable condition (2) Acute urinary retention: Code(s): R33.8 - Other retention of urine Status: Acute Assessment and Plan: Likely secondary to BPH. Continue Curtis. Continue Flomax and Proscar. See above. (3) BPH loc w urin obs/LUTS: Code(s): N40.1 - Benign prostatic hyperplasia with lower urinary tract symptoms Status: Chronic Assessment and Plan: As above. Levsin prn bladder spasm. (4) Hypertension: Code(s): I10 - Essential (primary) hypertension Status: Chronic Assessment and Plan: Blood pressure reviewed and has been stable. Continued home enalapril. HCTZ on hold. (5) Esophageal cancer, stage IV: Code(s): C15.9 - Malignant neoplasm of esophagus, unspecified Status: Chronic Assessment and Plan: With metastases to liver. This is being managed by oncologist, Dr. Helton. Last chemotherapy was 03/13/2021. Scheduled for next chemo on 03/27 which is being postponed. Dr. Helton is aware of the patient's admission. He does endorse generalized weakness and poor appetite related to his chemotherapy. Initiated dietary supplements. (6) Psoriasis: Code(s): L40.9 - Psoriasis, unspecified Status: Chronic Assessment and Plan: No acute issues. Continued clobetasol. (7) Normocytic anemia: Code(s): D64.9 - Anemia, unspecified Status: Acute Assessment and Plan: Review of prior labs demonstrated mild anemia, likely related to cancer. Hemoglobin hematocrit have declined, likely related to persistent hematuria. H&H remaining stable. Continued monitoring closely. Transferred in stable condition. (8) Hypokalemia: Code(s): E87.6 - Hypokalemia Status: Acute Assessment and Plan: Monitored and replaced as appropriate. Likely secondary to decreased PO intake and diarrhea. Transfer Discharge Sum: Med Medications Active and Home Medications: Home Medications aspirin 325 mg tablet 325 mg PO DAILY 03/24/19 [History Confirmed 03/23/21] clobetasol 0.05 % topical ointment 1 applic TOPICAL DAILY PRN 03/24/19 [History Confirmed 03/23/21] polyethylene glycol 3350 17 gram/dose oral powder 17 gm PO DAILY PRN 03/24/19 [History Confirmed 03/23/21] enalapril maleate 10 mg tablet 10 mg PO DAILY #90 tablet 02/15/20 [Rx Confirmed 03/23/21] apremilast 30 mg tablet 30 mg PO DAILY tablet 09/21/20 [History Confirmed 03/23/21] glucosamine-chondroitin 2 tablet PO DAILY 01/13/21 [History Confirmed 03/23/21] lidocaine-prilocaine 1 applic TOPICAL PRN PRN 01/20/21 [History Confirmed 03/23/21] prochlorperazine maleate 10 mg PO Q8H PRN 01/20/21 [History Confirmed 03/23/21] hydrochlorothiazide 25 mg tablet 25 mg PO DAILY #30 tablet 03/02/21 [Rx Confirmed 1
== END 2021-03-26 21:00 | disposition short-term general hospital (02) | DRG 717 ==
LOC: ANHED 15:53 → ANHSURGERY 16:28 → ANH3MED 18:27 → ANHED 18:28 → ANHSURGERY 18:28 → ANH3MED 18:28
PROVIDERS: Nurse Practitioner; Physician Assistant; Urology; Admitting Provider Internal Medicine; Emergency Provider Emergency Medicine; PCP Family Medicine; Visit Provider Physician Assistant
PROC: 0TCB8ZZ Extirpation of Matter from Bladder, Via Natural or Artificial Opening Endoscopic (ICD-10-PCS; CPT 52001; principal; 2021-03-23 17:00)
DX: N40.1 Benign prostatic hyperplasia with lower urinary tract symptoms (principal); C15.9 Malignant neoplasm of esophagus, unspecified; C78.7 Secondary malignant neoplasm of liver and intrahepatic bile duct; C78.89 Secondary malignant neoplasm of other digestive organs; D63.0 Anemia in neoplastic disease; R31.9 Hematuria, unspecified; N32.89 Other specified disorders of bladder; R33.8 Other retention of urine; L40.9 Psoriasis, unspecified; I10 Essential (primary) hypertension; E87.6 Hypokalemia; Z79.899 Other long term (current) drug therapy; Z87.891 Personal history of nicotine dependence; Z95.828 Presence of other vascular implants and grafts
CPT/HCPCS: 36415; 80048; 85014; 85018; 85025; 85027; 85055; 87040; 96361; 96375; 99282; 99285; A9270; C1757; C1769; G0378; J0690; J1100; J2405; J2704; J3010; J3480; J7060; J7120; J7121

== ENCOUNTER 2021-06-27 07:50 | Outpatient (CLI) | payer MEDICARE, SELFPAY ==
--- NOTE | 2021-06-27 | ECHO_ITS ---
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 Summary 1. Complete two-dimensional, color flow and Doppler transthoracic echocardiogram is performed. 2. LV size is at upper limits of normal; mild LVH, normal global LV systolic function, ejection fraction 55-60%; grade 1 diastolic dysfunction. Mild left atrial enlargement. Mild mitral annular calcification, no significant MR. Aortic valve is sclerosed; mild aortic stenosis by Doppler, valve area 2.1 cm2; maximum velocity 1.45 m/sec, mean gradient 5 mmHg. Trace TR, RVSP 32 mmHg. Sinus rhythm. Left Ventricle Left ventricular chamber dimension is normal. Left ventricular systolic function is normal, estimated at 55-60%. There is mildly increased left ventricular wall thickness. The left ventricular diastolic function is grade I diastolic dysfunction. Right Ventricle Right ventricular chamber dimension is normal. Right ventricular systolic function is normal. Left Atria Left atrial chamber dimension is mildly enlarged. Right Atria Right atrial chamber dimension is normal. Aortic Valve There is severe aortic valve sclerosis. There is mild aortic valve stenosis with a peak velocity of 145 cm/s, mean gradient of 5 mmHg, and aortic valve area of 2.3 cm2. Pulmonic Valve The pulmonic valve is not well visualized. There is mild pulmonic regurgitation. Mitral Valve The mitral valve has normal leaflets. There is no mitral valve regurgitation. The mitral valve annulus is mildly calcified. Tricuspid Valve The tricuspid valve leaflets are normal. There is trace tricuspid valve regurgitation. Pericardium/Pleural The pericardium appears normal. Inferior Vena Cava Normal inferior vena cava with >50% collapse upon inspiration consistent with elevated right atrial pressure, 10 mmHg. Aorta The aortic root size at the sinus of Valsalva is normal. There is moderate aortic atherosclerosis. Left Ventricular Outflow Tract Name Value Normal LVOT 2D LVOT Diameter 2.0 cm LVOT Doppler LVOT Peak Gradient 4 mmHg LVOT Mean Gradient 3 mmHg LVOT VTI 21 cm LVOT VTI/AV VTI Ratio 0.7 LVOT Stroke Volume 65 ml LVOT CO 3.9 l/min LVOT CI 1.9 l/min/m2 Pulmonic Valve
--- NOTE | ~2021-06-27 | CT_ITS ---
EXAMINATION: CT chest abdomen pelvis w con DATE: 06/27/2021 09:29 INDICATION: Cancer of the distal third of the esophagus TECHNIQUE: Transaxial computed tomographic images of the chest, abdomen, and pelvis were obtained aft er the administration of 100 cc of Omnipaque 350 intravenous contrast. The dose-length product (DLP) was 834.56 mGy-cm. Automated exposure control and iterative reconstruction technique were employed. COMPARISON: 03/15/2021 FINDINGS: CHEST CT: A left subclavian Port-A-Cath ends with its tip in the distal superior vena cava. Subpleural reticula r and groundglass opacities persist without significant change in the lungs. There is lower lung zone predominant honeycombing. There is no pleural effusion or pneumothorax. The heart size is normal. Th ere is calcified coronary artery atherosclerosis. There is mild eccentric wall thickening of the dist al esophagus. There is mild thoracic spondylosis. ABDOMEN/PELVIS CT: A 3.6 cm mass of liver segment for a previously measured 5.8 cm. Additional smaller liver masses prev iously described are not definitely identified. No new liver masses are seen. There is a stable 7 mm hypoattenuating lesion of the spleen. The pancreas and adrenal glands are normal. A stone is present in the nondistended gallbladder. Cysts of the kidneys measure up to 1.3 cm on the right. There is claire cified atherosclerosis of the aorta and many of the other arteries. No pathologically enlarged abdomi nal or pelvic lymph nodes are identified. There is no free intraperitoneal gas or evidence of bowel o bstruction. There is marked enlargement of the prostate. Mild lumbar spondylosis is noted. IMPRESSION: 1. Persistent eccentric wall thickening of the distal esophagus, consistent with known malignancy. 2. Interval treatment response as evidenced by decrease in size of liver metastasis. 3. Chronic interstitial lung disease. Reviewed, dictated and finalized at location A. 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 Persistent eccentric wall thickening of the distal esophagus, consistent wit h known malignancy. 2. Interval treatment response as evidenced by decrease in size of liver metast asis. 3. Chronic interstitial lung disease.
== END 2021-06-27 07:51 | disposition home or self-care (01) ==
PROVIDERS: PCP Family Medicine; Visit Provider Internal Medicine Hematology & Oncology
DX: C15.5 Malignant neoplasm of lower third of esophagus (principal); C79.9 Secondary malignant neoplasm of unspecified site; I35.0 Nonrheumatic aortic (valve) stenosis; M47.816 Spondylosis without myelopathy or radiculopathy, lumbar region; J84.9 Interstitial pulmonary disease, unspecified; N40.0 Benign prostatic hyperplasia without lower urinary tract symptoms
CPT/HCPCS: 71260; 74177; 93306; Q9967

== ENCOUNTER 2021-09-28 09:36 | Outpatient (CLI) | payer MEDICARE, SELFPAY ==
--- NOTE | 2021-09-28 | ECHO_ITS ---
Patient Info Name: Dieudonne Mejia Age: 75 years : 1945 Gender: Male Ht: 70 in Wt: 200 lbs BSA: 2.14 m2 HR: 61 bpm BP: 153 / 80 mmHg Heart Rhythm: Sinus Rhythm Technical Quality: Good Exam Date: 09/28/2021 10:10 AM Exam Location: [facility] Patient Status: Outpatient Admit Date: 09/28/2021 Staff Ordering Physician: Russell Helton MD [employer] Professor: May Garvey RDCS Attending Provider: Russell Helton MD Referring Physician: Sunitha PANG; Exam Type: CA echo doppler color flow Study Info Indications - Cancer of Distal Third Esophagus Complete two-dimensional, color flow and Doppler transthoracic echocardiogram is performed. Strain analysis performed. Summary 1. Complete two-dimensional, color flow and Doppler transthoracic echocardiogram is performed. 2. Left ventricular chamber dimension is normal. 3. Left ventricular systolic function is normal, estimated at 60-65%. 4. The left ventricular diastolic function is grade I diastolic dysfunction. 5. E/e' 8 is minimally elevated. 6. Global longitudinal strain is normal at -17.6%. 7. There is moderate aortic valve sclerosis. 8. There is trace mitral valve regurgitation. 9. There is trace tricuspid valve regurgitation. 10. No pulmonary hypertension, estimated pulmonary arterial systolic pressure is 23 mmHg. 11. There is mild pulmonic regurgitation. 12. The aortic root size at the sinus of Valsalva is borderline dilated at 4.0 cm. Left Ventricle E/e' 8 is minimally elevated. Global longitudinal strain is normal at -17.6%. Left ventricular chamber dimension is normal. Left ventricular systolic function is normal, estimated at 60-65%. The left ventricular diastolic function is grade I diastolic dysfunction. Right Ventricle Right ventricular systolic function is normal and with normal TAPSE 2.4 cm. Right ventricular chamber dimension is normal. Left Atria Left atrial chamber dimension is normal. Right Atria Right atrial chamber dimension is normal. Aortic Valve The aortic valve is trileaflet. There is moderate aortic valve sclerosis. There is no aortic valve stenosis. There is no aortic valve regurgitation. Pulmonic Valve There is mild pulmonic regurgitation. Mitral Valve There is no mitral valve stenosis. There is trace mitral valve regurgitation. Tricuspid Valve There is trace tricuspid valve regurgitation. No pulmonary hypertension, estimated pulmonary arterial systolic pressure is 23 mmHg. Pericardium/Pleural There is no pericardial effusion. Inferior Vena Cava Normal inferior vena cava with >50% collapse upon inspiration consistent with normal right atrial pressure, 5 mmHg. Aorta The aortic root size at the sinus of Valsalva is borderline dilated at 4.0 cm. Left Ventricular Outflow Tract Name Value Normal LVOT 2D LVOT Diameter 2.2 cm LVOT Doppler LVOT Peak Gradient 4 mmHg LVOT Mean Gradient 1 mmHg LVOT VTI 22 cm LVOT VTI/AV VTI Ratio 0.5 LVOT Stroke Volume
== END 2021-09-28 09:37 | disposition home or self-care (01) ==
LOC: ANHLAB 09:38
PROVIDERS: PCP Family Medicine; Visit Provider Internal Medicine Hematology & Oncology
DX: C15.5 Malignant neoplasm of lower third of esophagus (principal); I37.1 Nonrheumatic pulmonary valve insufficiency
CPT/HCPCS: 93306

== ENCOUNTER 2021-10-10 09:18 | Outpatient (CLI) | payer MEDICARE, SELFPAY ==
--- NOTE | ~2021-10-10 | CT_ITS ---
EXAMINATION: CT chest abdomen pelvis wo con DATE: 10/10/2021 09:38 INDICATION: Restaging of cancer of distal third of esophagus TECHNIQUE: Computed tomography (CT) of the chest, abdomen, and pelvis was performed without intraveno us contrast. Automated exposure control and iterative reconstruction technique were employed. Exam do se: 910.40 mGy-cm total exam DLP. COMPARISON: 06/27/2021 CTA chest abdomen pelvis FINDINGS: CHEST CT: Left subclavian Port-A-Cath catheter tip in superior vena cava. Normal heart size. Coronary artery calcifications. Aortic and great vessel calcifications. No thoraci c aortic aneurysm. Stable approximately 8.9 x 20 mm lymph node in the anterior left hilar area, not significant change s ernie 06/27/2021. There is extensive peripheral honeycombing involving the upper lobes, middle lobe and lower lobes sug gesting usual interstitial pneumonia pulmonary interstitial fibrosis. Nonspecific thickening of the esophageal wall Small sliding hiatal hernia. ABDOMEN/PELVIS CT: There is interval decreased size of a left hepatic space-occupying mass lesion, currently measuring u p to approximately 2.5 cm dimension compared to 3.6 cm on 06/27/2021. There is interval stability appe aring calcification of the mass. Borderline splenic size is within normal range. 2 cm peripherally calcified gallstone. No gallbladder wall thickening or pericholecystic fluid or fat stranding. Biliary stent is noted. No pancreatic mass lesion, calcification or ductal dilatation. Normal morphology of the adrenal glands. 12 mm posterior exophytic upper pole right renal cyst. No other renal space occupying mass lesion is evident. No urinary tract calculus or hydroureteronephrosis. There is severe prostate enlargement, impressing prominently the base of the urinary bladder. There i s mild diffuse bladder wall thickening. There is atherosclerotic calcification but normal caliber of the abdominal aorta. Atherosclerotic obs curation at the origins of the celiac and superior mesenteric and renal arteries as well as bilateral iliac and femoral artery calcification. No intraperitoneal or retroperitoneal or pelvic mass lesion or adenopathy or ascites is detected. Bilateral fat-containing inguinal hernias, small on the right, mild to moderate on the left. Diffuse idiopathic skeletal hyperostosis of the thoracic spine. Grade 1 anterolisthesis at L4-5 due to degenerative change at the apophyseal joints. Osteopenia. No suspicious osteolytic or osteoblastic lesions are noted. IMPRESSION: Left subclavian Port-A-Cath in superior vena cava Stable anterior left hilar proximal 8.9 x 20 mm lymph node since 06/27/2021 Usual interstitial pneumonia pulmonary interstitial fibrosis Small sliding hiatal hernia Diminished size of left hepatic mass, with interval stippled calcification Biliary stent Cholelithiasis 12 mm right renal cyst Severe prostate enlargement Reviewed, dictated and finalized at Location [facility]. Reviewed, dictated and finalized at location A.
== END 2021-10-10 09:19 | disposition home or self-care (01) ==
PROVIDERS: PCP Family Medicine; Visit Provider Internal Medicine Hematology & Oncology
DX: C15.5 Malignant neoplasm of lower third of esophagus (principal); Z95.828 Presence of other vascular implants and grafts; R59.0 Localized enlarged lymph nodes; K44.9 Diaphragmatic hernia without obstruction or gangrene; R16.0 Hepatomegaly, not elsewhere classified; K80.20 Calculus of gallbladder without cholecystitis without obstruction; N28.1 Cyst of kidney, acquired; N40.0 Benign prostatic hyperplasia without lower urinary tract symptoms
CPT/HCPCS: 71250; 74176

== ENCOUNTER 2022-01-02 13:29 | Outpatient (CLI) | payer MEDICARE, SELFPAY ==
--- NOTE | 2022-01-02 | ECHO_ITS ---
Patient Info Name: Dieudonne Mejia Age: 76 years : 1945 Gender: Male Ht: 70 in Wt: 185 lbs BSA: 2.05 m2 HR: 75 bpm BP: 136 / 79 mmHg Heart Rhythm: Sinus Rhythm Technical Quality: Fair Exam Date: 01/02/2022 2:00 PM Exam Location: [facility] Patient Status: Outpatient Admit Date: 01/02/2022 Staff Ordering Physician: Russell Helton MD Cryptographic Vulnerability Analyst: Bonnie Garsia RDCS Attending Provider: Russell Helton MD Referring Physician: Sunitha PANG; Exam Type: CA echo doppler color flow Study Info Indications - mestasis of esophogeal cancer Complete two-dimensional, color flow and Doppler transthoracic echocardiogram is performed. Summary 1. Complete two-dimensional, color flow and Doppler transthoracic echocardiogram is performed. 2. Left ventricular chamber dimension is normal. 3. Left ventricular systolic function is normal, estimated at 60-65%. 4. The left ventricular diastolic function is grade II diastolic dysfunction. 5. E/e' 6 is not elevated. 6. Global longitudinal strain is normal at -20.2%. 7. Left atrial chamber dimension is mildly enlarged. 8. There is mild aortic valve sclerosis. 9. There is trace mitral valve regurgitation. 10. There is trace tricuspid valve regurgitation. 11. No pulmonary hypertension, estimated pulmonary arterial systolic pressure is 33 mmHg. Left Ventricle E/e' 6 is not elevated. Global longitudinal strain is normal at -20.2%. Left ventricular chamber dimension is normal. Left ventricular systolic function is normal, estimated at 60-65%. The left ventricular diastolic function is grade II diastolic dysfunction. Right Ventricle Right ventricular chamber dimension is normal. Right ventricular systolic function is normal. Left Atria Left atrial chamber dimension is mildly enlarged. Right Atria Right atrial chamber dimension is normal. Aortic Valve The aortic valve is trileaflet. There is mild aortic valve sclerosis. There is no aortic valve stenosis. There is no aortic valve regurgitation. Pulmonic Valve There is no pulmonic regurgitation. Mitral Valve There is no mitral valve stenosis. There is trace mitral valve regurgitation. Tricuspid Valve There is trace tricuspid valve regurgitation. No pulmonary hypertension, estimated pulmonary arterial systolic pressure is 33 mmHg. Pericardium/Pleural There is no pericardial effusion. Inferior Vena Cava Normal inferior vena cava with >50% collapse upon inspiration consistent with normal right atrial pressure, 5 mmHg. Aorta The aortic root size at the sinus of Valsalva is normal. Left Ventricular Outflow Tract Name Value Normal LVOT 2D LVOT Diameter 2.2 cm LVOT Doppler LVOT Peak Gradient 7 mmHg LVOT Mean Gradient 3 mmHg LVOT VTI 18 cm LVOT VTI/AV VTI Ratio 0.7 LVOT Stroke Volume 66 ml LVOT CO 4.5 l/min LVOT CI 2.2 l/min/m2 Pulmonic Valve ----
== END 2022-01-02 13:30 | disposition home or self-care (01) ==
PROVIDERS: PCP Family Medicine; Visit Provider Internal Medicine Hematology & Oncology
DX: C15.9 Malignant neoplasm of esophagus, unspecified (principal); C79.9 Secondary malignant neoplasm of unspecified site; I35.8 Other nonrheumatic aortic valve disorders
CPT/HCPCS: 93306

== ENCOUNTER 2022-01-10 07:55 | Outpatient (CLI) | payer MEDICARE, SELFPAY ==
--- NOTE | ~2022-01-10 | CT_ITS ---
EXAMINATION: CT chest abdomen pelvis w con DATE: 01/10/2022 08:20 INDICATION: Metastatic esophageal cancer TECHNIQUE: Transaxial computed tomographic images of the chest, abdomen, and pelvis were obtained aft er the administration of 100 cc of Omnipaque 350 intravenous contrast. The dose-length product (DLP) was 834.26 mGy-cm. Automated exposure control and iterative reconstruction technique were employed. COMPARISON: 10/10/2021, 06/27/2021 FINDINGS: CHEST CT: A left subclavian Port-A-Cath ends with its tip in the distal superior vena cava. Again seen are wide spread subpleural reticular and groundglass opacities without significant change. There is associated lower lung zone predominant honeycombing. The heart size is normal. There is calcified coronary bill ry atherosclerosis. There is mild persistent eccentric wall thickening of the distal esophagus. ABDOMEN/PELVIS CT: An approximately 2.5 cm mass of the left hepatic lobe is not significantly changed. There has been in terval development of multiple soft tissue masses in the right upper quadrant, the subhepatic space, small bowel mesentery, and in the pelvis. There is a stable hypoattenuating lesion in the upper pole of the spleen. The pancreas and adrenal glands are normal. A stone is present in the nondistended gal lbladder. There is a stent in the common bile duct. The kidneys are unremarkable. There is no free in traperitoneal gas or evidence of bowel obstruction. There is marked enlargement of the prostate. Ther e is mild lumbar spondylosis. IMPRESSION: 1. Interval progression of disease as evidenced by development of multiple soft tissue masses in the right upper quadrant, subhepatic space, the small bowel mesentery, in the pelvis. 2. Stable chronic interstitial lung disease in a pattern of usual interstitial pneumonia. Reviewed, dictated and finalized at location B. IMPRESSION: 1. Interval progression of disease as evidenced by development of multiple soft tissue masses in the right upper quadrant, subhepatic space, the small bowel m esentery, in the pelvis. 2. Stable chronic interstitial lung disease in a pattern of usual interstitial pneumonia.
== END 2022-01-10 07:56 | disposition home or self-care (01) ==
LOC: ANHIMG 07:57
PROVIDERS: PCP Family Medicine; Visit Provider Internal Medicine Hematology & Oncology
DX: C80.1 Malignant (primary) neoplasm, unspecified (principal); C15.9 Malignant neoplasm of esophagus, unspecified; J84.9 Interstitial pulmonary disease, unspecified
CPT/HCPCS: 71260; 74177; Q9967

== ENCOUNTER 2022-01-29 10:47 | Outpatient (CLI) | payer MEDICARE, SELFPAY ==
--- NOTE | ~2022-01-29 | XR_ITS ---
EXAMINATION: XR lumbar spine 2-3V DATE: 01/29/2022 11:48 INDICATION: Secondary malignant neoplasm of unspecified site TECHNIQUE: Anteroposterior and lateral views of the lumbar spine, and cone-down lateral view of the l umbosacral junction were obtained. COMPARISON: CT, 01/10/2022 FINDINGS: Bone alignment is normal. There is no fracture. There is mild loss of intervertebral disc s pace height at L4-5 and L5-S1. There is moderate facet osteoarthritis of the lower lumbar spine. Calc ified atherosclerosis is noted. Embolization coils are noted in the right abdomen. IMPRESSION: 1. Mild lumbar spondylosis without acute findings or significant interval change. Reviewed, dictated and finalized at location A. IMPRESSION: 1. Mild lumbar spondylosis without acute findings or significant interval tennille sow
== END 2022-01-29 10:48 | disposition home or self-care (01) ==
LOC: ANHIMG 10:53
PROVIDERS: PCP Family Medicine; Visit Provider Family Medicine
DX: C79.9 Secondary malignant neoplasm of unspecified site (principal); M54.50 Low back pain, unspecified; M47.817 Spondylosis without myelopathy or radiculopathy, lumbosacral region
CPT/HCPCS: 72100

== ENCOUNTER 2022-04-02 07:54 | Outpatient (CLI) | payer MEDICARE, SELFPAY ==
--- NOTE | ~2022-04-02 | CT_ITS ---
EXAMINATION: CT chest abdomen pelvis w con DATE: 04/02/2022 08:25 INDICATION: Restaging of metastatic esophageal cancer TECHNIQUE: Computed tomography (CT) of the chest, abdomen, and pelvis was performed with 100 CC Omnip aque 350 intravenous contrast. Automated exposure control and iterative reconstruction technique were employed. Exam dose: 610.13 mGy-cm total exam DLP. COMPARISON: 01/10/2022 CT chest abdomen pelvis 01/05/[address] scan FINDINGS: CHEST CT: Left subclavian Port-A-Cath again noted in superior vena cava. Again noted is very prominent peripheral septal soft tissue thickening and honeycombing throughout otis th lungs consistent with usual interstitial pneumonia interstitial fibrosis. Normal heart size. Coronary artery calcifications. No pericardial effusion. No thoracic aortic aneurysm or dissection. Thoracic aortic and great vessel calcifications. No interval hilar or mediastinal mass lesion or lymphadenopathy is noted. There is a small sliding hiatal hernia. ABDOMEN/PELVIS CT: Approximately 2.2 cm gallstone is noted. No gallbladder wall thickening or pericholecystic fluid or f at stranding. A biliary stent is again noted. No bile duct or pancreatic duct dilatation is noted. Interval decreased size of calcified left hepatic mass since 10/10/2021., Measuring approximately 2 cm compared to 2.5 cm maximal dimension on 10/10/2021. 10 mm hypoattenuating posterior splenic lesion, not evident on 10/10/2021, possibly metastatic. A coupl e of splenules are suggested. No pancreatic mass lesion or calcification or ductal dilatation. Normal morphology of the adrenal glands. Exophytic 12 mm right renal cyst. The kidneys are otherwise unremarkable. There is atherosclerotic calcification but normal caliber of the abdominal aorta. Prominent calcifica tion at the origins celiac and superior mesenteric and renal arteries. No abdominal aortic aneurysm. With very prominent prostate enlargement and mild prostate calcification. The urinary bladder is unre markable. Colon diverticulosis; no CT evidence of diverticulitis. No bowel obstruction or intraperito va free air. There are numerous subdiaphragmatic soft tissue metastatic deposits measuring up to 1.5 cm, substanti ally increased in number and particularly size since 10/10/2021. Ill-defined irregular new soft tissue masses are noted in Morison's pouch and along the right lateral conal and right lower quadrant anteri or pararenal fascia and mesentery. Multiple new nodular mesenteric masses measuring up to 8.8 mm in n oted in the left lower quadrant. New approximately 1.6 x 2 cm irregular soft tissue mass is noted in the posterior lower pelvis in the midline at the posterior aspect of the urinary bladder and anterior aspect of the rectosigmoid colon.. Fat-containing umbilical and left inguinal hernias. Degenerative changes of the cervical, thoracic and lumbar spine including diffuse idiopathic skeletal hyperostosis. No suspicious osteolytic or osteoblastic lesions are noted. IMPRESSION: Extensive abdominal and pelvic metastatic disease including numerous new and enlarged perry bhepatic soft tissue masses and scattered mesenteric and peritoneal metastases, largely new since 10/10 Reviewed, dictated and finalized at Location [facility]. Reviewed, dictated and finalized at location B. 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
== END 2022-04-02 07:55 | disposition home or self-care (01) ==
PROVIDERS: PCP Family Medicine; Visit Provider Internal Medicine Hematology & Oncology
DX: C15.5 Malignant neoplasm of lower third of esophagus (principal)
CPT/HCPCS: 71260; 74177; Q9967

== ENCOUNTER 2022-04-18 14:29 | Outpatient (CLI) | payer MEDICARE, SELFPAY ==
--- NOTE | 2022-04-18 | ECHO_ITS ---
Patient Info Name: Dieudonne Mejia Age: 76 years : 1945 Gender: Male Ht: 70 in Wt: 166 lbs BSA: 1.93 m2 HR: 76 bpm BP: 113 / 71 mmHg Technical Quality: Good Exam Date: 04/18/2022 3:16 PM Exam Location: [facility] Patient Status: Outpatient Admit Date: 04/18/2022 Staff Ordering Physician: Russell Helton MD Jelly Filter Tender: Anika Garcia RDCS Attending Provider: Russell Helton MD Referring Physician: Sunitha PANG; Exam Type: CA echo doppler color flow Study Info Indications - esophageal cancer Complete two-dimensional, color flow and Doppler transthoracic echocardiogram is performed. Summary 1. Complete two-dimensional, color flow and Doppler transthoracic echocardiogram is performed. 2. Left ventricular chamber dimension is normal. 3. Left ventricular systolic function is normal, estimated at 60-65%. 4. The left ventricular diastolic function is grade I diastolic dysfunction. 5. E/e' 4 is not elevated. 6. Left atrial chamber dimension is mildly enlarged. 7. There is mild aortic valve sclerosis. 8. There is trace pulmonic regurgitation. Left Ventricle E/e' 4 is not elevated. Left ventricular chamber dimension is normal. Left ventricular systolic function is normal, estimated at 60-65%. The left ventricular diastolic function is grade I diastolic dysfunction. Right Ventricle Right ventricular systolic function is normal and with normal TAPSE 1.8 cm. Right ventricular chamber dimension is normal. Left Atria Left atrial chamber dimension is mildly enlarged. Right Atria Right atrial chamber dimension is normal. Aortic Valve The aortic valve is trileaflet. There is mild aortic valve sclerosis. There is no aortic valve stenosis. There is no aortic valve regurgitation. Pulmonic Valve There is trace pulmonic regurgitation. Mitral Valve There is no mitral valve stenosis. There is no mitral valve regurgitation. Tricuspid Valve There is no tricuspid valve regurgitation. Pericardium/Pleural There is no pericardial effusion. Inferior Vena Cava Normal inferior vena cava with >50% collapse upon inspiration consistent with normal right atrial pressure, 5 mmHg. Aorta The aortic root size at the sinus of Valsalva is normal. Left Ventricular Outflow Tract Name Value Normal LVOT 2D LVOT Diameter 2.0 cm LVOT Doppler LVOT Peak Gradient 5 mmHg LVOT Mean Gradient 3 mmHg LVOT VTI 18 cm LVOT VTI/AV VTI Ratio 0.7 LVOT Stroke Volume 55 ml LVOT CO 4.7 l/min LVOT CI 2.4 l/min/m2 Mitral Valve Name Value Normal MV Doppler MV Peak Gradient 2 mmHg MV Mean Gradient
== END 2022-04-18 14:30 | disposition home or self-care (01) ==
LOC: ANHCARD 14:30
PROVIDERS: PCP Family Medicine; Visit Provider Internal Medicine Hematology & Oncology
DX: C15.5 Malignant neoplasm of lower third of esophagus (principal); I35.1 Nonrheumatic aortic (valve) insufficiency
CPT/HCPCS: 93306

== ENCOUNTER 2022-06-01 07:42 | Outpatient (CLI) | payer MEDICARE, SELFPAY ==
--- NOTE | ~2022-06-01 | CT_ITS ---
Clinical Indication: Esophageal cancer CT Scan of the Chest, Abdomen, and Pelvis with Contrast: Technique: Contiguous sections were acquired throughout the chest, abdomen, and pelvis after intraven ous administration of 100 cc of Omnipaque 350. Dose reduction technique was used on this scan by netta ferreiraing automated exposure control and iterative reconstruction technique. The dose-length product (DL P) was 617.55 mGy-cm. COMPARISON: 04/02/2022 Findings: Stable mildly prominent AP window lymph node. No other lymphadenopathy identified. No definite pathol ogic-appearing esophageal wall thickening identified on this exam. The mediastinal soft tissues and v ascular structures otherwise appear normal. There is no evidence of pleural or pericardial effusion. Extensive chronic pulmonary interstitial disease is present, with basilar and peripheral distribution , with extensive interstitial thickening and honeycomb formation. Findings are similar to prior exam. Stable essentially hypodense mass with peripheral calcification in the left hepatic lobe (axial image 94). Hypodense mass in the caudate lobe measures 2.8 cm in diameter, probably mildly increased in si ze from prior exam (axial image 109 for example). Calcified gallstones unchanged. Metallic stent prob ably in the common bile duct is present, unchanged. Several subcentimeter hypodensities in the spleen are present, similar to prior exam. The pancreas, adrenals and kidneys are within normal limits. No evidence of aortic aneurysm. No lymphadenopathy. No bowel obstruction or bowel wall thickening. There is no evidence to suggest acute appendicitis. Masters bhepatic implants are similar to prior exam. Additional scattered subcentimeter peritoneal implants, which are similar to prior exam, most notably anterior to the left psoas major muscle, but also at th e anterior left mid abdomen and right mid abdomen. Some of these are mildly increased in size (for ex ample 9 mm nodule on axial image 149, which previously measured 6 mm. Larger right upper quadrant imp lant is similar to prior exam (axial images 140-144). Urinary bladder is unremarkable. Prostate gland is markedly enlarged, indenting through the bladder b ase. Pelvic metastatic implant is present just anterior to the rectum, measuring approximately 1.8 cm in diameter, probably without significant change from prior exam. Impression: Metastatic disease is mildly progressed since 04/02/2022. Distribution of lesions is essentially unch anged, but several lesions are mildly increased in size, including several peritoneal implants as wel l as a caudate lobe hepatic metastasis. 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 Markedly enlarged prostate gland. Cholelithiasis. Reviewed, dictated and finalized at location M. CE SERVICES COORDINATOR Impression: Metastatic disease is mildly progressed since 04/02/2022. Distribution of lesio ns is essentially unchanged, but several lesions are mildly increased in size, including several peritoneal implants as well as a caudate lobe hepatic metasta sis. Stable extensive chronic interstitial disease, most likely usual interstitial p neumonia. Markedly enlarged prostate gland. Cholelithiasis.
== END 2022-06-01 07:43 | disposition home or self-care (01) ==
PROVIDERS: PCP Family Medicine; Visit Provider Internal Medicine Hematology & Oncology
DX: C15.5 Malignant neoplasm of lower third of esophagus (principal); K80.20 Calculus of gallbladder without cholecystitis without obstruction; J84.9 Interstitial pulmonary disease, unspecified; N40.0 Benign prostatic hyperplasia without lower urinary tract symptoms
CPT/HCPCS: 71260; 74177; Q9967

== ENCOUNTER 2022-07-18 13:33 | Outpatient (CLI) | payer MEDICARE, SELFPAY ==
--- NOTE | 2022-07-18 | ECHO_ITS ---
Patient Info Name: Dieudonne Mejia Age: 76 years : 1945 Gender: Male Ht: 70 in Wt: 160 lbs BSA: 1.89 m2 BP: 151 / 87 mmHg Technical Quality: Good Exam Date: 07/18/2022 1:56 PM Exam Location: [facility] Patient Status: Outpatient Admit Date: 07/18/2022 Staff Ordering Physician: Russell Helton MD Dopster: Kashif Price, DIANA, RT Attending Provider: Russell Helton MD Referring Physician: Sunitha PANG; Exam Type: CA echo doppler color flow Study Info Indications - Metastisis from esophogeal cancer C79.9, C15.9, ICD 10 M Complete two-dimensional, color flow and Doppler transthoracic echocardiogram is performed. Strain analysis performed. Summary 1. Complete two-dimensional, color flow and Doppler transthoracic echocardiogram is performed. 2. Left ventricular chamber dimension is normal. 3. Left ventricular systolic function is normal, estimated at 60-65%. 4. There is mild concentric increased left ventricular wall thickness. 5. The left ventricular diastolic function is grade I diastolic dysfunction. 6. E/e' 5 is not elevated. 7. Global longitudinal strain is normal at -18.6%. 8. There is moderate aortic valve sclerosis. 9. There is mild aortic valve stenosis with a peak velocity of 166 cm/s, mean gradient of 6 mmHg, and aortic valve area of 1.9 cm2. 10. There is trace mitral valve regurgitation. 11. There is trace tricuspid valve regurgitation. 12. There is trace pulmonic regurgitation. Left Ventricle E/e' 5 is not elevated. Global longitudinal strain is normal at -18.6%. Left ventricular chamber dimension is normal. Left ventricular systolic function is normal, estimated at 60-65%. There is mild concentric increased left ventricular wall thickness. The left ventricular diastolic function is grade I diastolic dysfunction. Right Ventricle Right ventricular systolic function is normal and with normal TAPSE 2.8 cm. Right ventricular chamber dimension is normal. Left Atria Left atrial chamber dimension is normal. Right Atria Right atrial chamber dimension is normal. Aortic Valve The aortic valve is trileaflet. There is moderate aortic valve sclerosis. There is mild aortic valve stenosis with a peak velocity of 166 cm/s, mean gradient of 6 mmHg, and aortic valve area of 1.9 cm2. There is no aortic valve regurgitation. Pulmonic Valve There is trace pulmonic regurgitation. Mitral Valve There is no mitral valve stenosis. There is trace mitral valve regurgitation. Tricuspid Valve There is trace tricuspid valve regurgitation. RVSP is not calculated due to an inadequate TR jet. Pericardium/Pleural There is no pericardial effusion. Inferior Vena Cava Normal inferior vena cava with >50% collapse upon inspiration consistent with normal right atrial pressure, 5 mmHg. Aorta The aortic root size at the sinus of Valsalva is normal. Left Ventricular Outflow Tract Name Value Normal LVOT 2D LVOT Diameter 2.1 cm LVOT Doppler LVOT Peak Gradient 3 mmHg LVOT Mean Gradient 1 mmHg LVOT VTI 14
== END 2022-07-18 13:34 | disposition home or self-care (01) ==
LOC: ANHCARD 13:34
PROVIDERS: PCP Family Medicine; Visit Provider Internal Medicine Hematology & Oncology
DX: C79.9 Secondary malignant neoplasm of unspecified site (principal); C15.9 Malignant neoplasm of esophagus, unspecified; I35.8 Other nonrheumatic aortic valve disorders
CPT/HCPCS: 93306

== ENCOUNTER 2022-08-06 09:02 | Emergency (ER) | payer MEDICARE, SELFPAY ==
[2022-08-06] VITALS (12 sets, daily range): BP systolic 135–149; BP diastolic 69–76; PULSE 68–85; RESP 16–18; TEMP 36.9; O2SAT 91–100
--- NOTE | ~2022-08-06 | CT_ITS ---
EXAMINATION: CT abdomen pelvis w con DATE: 08/06/2022 13:03 INDICATION: Low abdominal pain. Blood in stool. TECHNIQUE: Computed tomography (CT) of the abdomen and pelvis was performed with 100 mL Omnipaque 350 intravenous contrast. Automated exposure control and iterative reconstruction technique were employe d. The dose-length product was 511.97 mGy-cm. COMPARISON: CT abdomen and pelvis 06/01/2022, 03/15/21 FINDINGS: The visualized portions of the lung bases demonstrate widespread bronchiectasis and honeyco mbing. No pleural effusion. Cardiomegaly is noted. There are coronary artery calcifications. No peric ardial effusion. There is a 1.7 cm peripherally calcified mass in the liver, consistent with treated metastatic disease. There is a 12 mm mass in the spleen with worsening from 03/15/21. There is mild s plenomegaly. There is a gallstone in the gallbladder, which is normal in size. There are embolization coils in the area of gastroduodenal artery. There are widespread peritoneal masses, consistent with metastatic disease. For example, a 3.0 x 2.2 cm mass in the retroperitoneum previously measured 2.9 x 1.8 cm. A 10 mm mass in the right lateral peritoneum previously measured 9 mm . A 2.5 x 1.6 mm mass anterior to the rectum previously measured 2.3 x 1.5 cm . There is a small volume of ascites. There i s a small sliding hiatal hernia. There is periportal lymphadenopathy. There is mild lumbar spondylosi s. There are bridging endplate osteophytes at multiple levels in the spine, consistent with diffuse i diopathic skeletal hyperostosis (DISH). IMPRESSION: 1. Worsened metastatic disease including peritoneal carcinomatosis, splenic and liver masses, and per iportal lymphadenopathy. 2. Small volume of ascites. 3. Chronic interstitial lung disease in a pattern of usual interstitial pneumonia (UIP). Reviewed, dictated and finalized at location A. IMPRESSION: 1. Worsened metastatic disease including peritoneal carcinomatosis, splenic and liver masses, and periportal lymphadenopathy. 2. Small volume of ascites. 3. Chronic interstitial lung disease in a pattern of usual interstitial pneumon ia (UIP).
[2022-08-06 09:46] LABS: Basophils Percent Auto 0.2 % (0.2-1.2); Eosinophils Absolute Auto 0.2 K/mm3 (0-0.3); Eosinophils Percent Auto 3.4 % (0-4.4); Hematocrit 40.2 % (42.0-52.0); Hemoglobin 13.1 g/dL (14.0-18.0); Immature Granulocyte Absolute 0.01 K/mm3 (0.00-0.031); Immature Granulocyte Percent A 0.2 % (0-0.5); Immature Platelet Fraction Pct 5.2 % (0.9-11.2); Lymphocytes Percent Auto 22.8 % (18.3-44.2); Mean Corpuscular HGB Conc 32.6 g/dl (32-36); Mean Corpuscular Hemoglobin 32.9 pg (26-34); Mean Platelet Volume 11.6 fl (7.4-10.4); Monocytes Absolute Auto 0.4 K/mm3 (0.1-0.6); Monocytes Percent Auto 8.9 % (2.6-8.5); Neutrophils Absolute Auto 2.8 K/mm3 (1.3-6.7); Neutrophils Percent Auto 64.5 % (45.5-73.1); Platelet Count Result 105 k/mm3 (150-375); Red Blood Count 3.98 M/mm3 (4.6-6.20); Red Cell Distribution Width 14.7 % (11.5-14.5); White Blood Count 4.4 K/mm3 (4.5-10.0)
[2022-08-06 09:52] LABS: Alanine Aminotransferase 51 U/L (6-50); Albumin Level 3.7 g/dL (3.5-5.1); Alkaline Phosphatase 130 U/L (38-126); Anion Gap 5 mmol/L (8-16); Aspartate Amino Transferase 63 U/L (17-59); Blood Urea Nitrogen 12 mg/dL (9-20); Carbon Dioxide 31 mmol/L (22-30); Chloride 103 mmol/L (98-107); Estimated CRCL calculation 90 ml/min; Estimated Glomerular Filt Rate > 60; Glucose 126 mg/dL (65-110); Potassium 4.1 mmol/L (3.4-5.0); Sodium 139 mmol/L (137-145)
--- NOTE | 2022-08-06 14:26 | ED.GIBLEED ---
HPI - GI Bleed General Chief complaint: GI Bleed Stated complaint: blood in stool Time Seen by Provider: 08/06/22 11:20 Source: patient, family, RN notes reviewed and old records reviewed Mode of arrival: ambulatory Limitations: no limitations History of Present Illness HPI Narrative: This is a 76 year old male with metastatic esophageal cancer who presents for evaluation bloody stools. Patient reports that he developed diarrhea on . He continued to have diarrhea for a few days. He started to notice on Saturday small amount of bleeding when he would wipe. Today he reports his bleeding seems worse. He feels like his hemorrhoids has flipped inside out. He also reports some lower abdominal pain, but his states that he has had abdominal pain for several months. She also states he is not eating well. Patient has had issues with constipation. Patient has been taking colace twice a day prior to having diarrhea. Related Data Home Medications Medication Instructions Recorded Confirmed glucosamine-chondroitin 750 mg-600 2 tablet PO DAILY 01/13/21 07/31/22 mg tablet megestrol 400 mg/10 mL (10 mL) 200 mg PO DAILY 01/29/22 07/31/22 oral suspension aspirin 81 mg chewable tablet 81 mg PO DAILY 02/13/22 07/31/22 ondansetron HCl 8 mg tablet 8 mg PO Q8H PRN nausea and vomiting 02/13/22 07/31/22 prochlorperazine maleate 10 mg 10 mg PO Q8H PRN Nausea 02/13/22 07/31/22 tablet Allergies Allergy/AdvReac Type Severity Reaction Status Date / Time amoxicillin Allergy Intermediate Swelling Verified 07/31/22 10:53 clavulanic acid Allergy Intermediate Swelling Verified 07/31/22 10:53 erythromycin base Allergy Intermediate Swelling Verified 07/31/22 10:53 Review of Systems Constitutional: Constitutional: Denies weakness Cardiovascular: Cardiovascular: Denies syncope, Denies rapid heart rate, Denies irregular heart rhythm, Denies leg edema and Denies dyspnea Respiratory: Respiratory: Denies chest congestion, Denies hemoptysis, Denies excessive phlegm production and Denies dyspnea Gastrointestinal: Gastrointestinal: Reports abdominal pain, Reports hematochezia, Reports constipation, Denies diarrhea and Denies vomiting Genitourinary: Genitourinary: Denies hematuria, Reports oliguria, Denies dysuria, Denies penile discharge and Denies testicular pain Musculoskeletal: Musculoskeletal: Denies joint swelling, Denies loss of height and Denies muscle weakness Neurologic: Denies syncope, Denies focal weakness and Denies weakness PMFSH Past Medical History Medical History Abnormal gastrointestinal PET scan BPH loc w urin obs/LUTS Esophageal cancer, stage IV Patient receives chemotherapy every 2 weeks and is due for chemotherapy March 27 Hematuria Hypertension Metastatic adenocarcinoma Port-A-Cath in place Psoriasis Surgical History Surgical History H/O arthroscopic knee surgery H/O cystoscopy H/O hernia repair History of prostate surgery s/p embolization Family History Family History Father Cerebrovascular accident Mother Family history of malignant neoplasm Acute myocardial infarction Sibling Family history of malignant neoplasm of kidney sister Social History Social History Social History: the patient lives at home with his and he has 2 children. 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 The patient quit smoking many years ago in approximately 6 months ago he quit using chewing tobacco. He denies any marijuana or alcohol. His mac is a durable power trade mark attorney for healthcare. Code status full code Smoking packs per day: 1.5 Smoking cigarettes per day: 30.0 Years smoked: 30 Smoking pack-years: 45.00 Smoking status: For
== END 2022-08-06 15:48 | disposition home or self-care (01) ==
PROVIDERS: Emergency Provider General Practice; PCP Family Medicine
DX: C15.9 Malignant neoplasm of esophagus, unspecified (principal); C78.6 Secondary malignant neoplasm of retroperitoneum and peritoneum; C78.89 Secondary malignant neoplasm of other digestive organs; C78.7 Secondary malignant neoplasm of liver and intrahepatic bile duct; K64.4 Residual hemorrhoidal skin tags; N40.1 Benign prostatic hyperplasia with lower urinary tract symptoms; N13.8 Other obstructive and reflux uropathy; Z87.891 Personal history of nicotine dependence; Z79.82 Long term (current) use of aspirin; J84.9 Interstitial pulmonary disease, unspecified
CPT/HCPCS: 36415; 74177; 80053; 85025; 85055; 86850; 86900; 86901; 99284; Q9967

== ENCOUNTER 2022-08-27 13:55 | Inpatient (IN) | payer MEDICARE, SELFPAY ==
--- NOTE | ~2022-08-27 | XR_ITS ---
EXAMINATION: XR chest 1V portable DATE: 08/27/2022 14:35 INDICATION: Port catheter evaluation. Metastatic esophageal cancer. TECHNIQUE: frontal view of the chest was obtained. COMPARISON: Chest radiograph dated 01/17/[address] chest, abdomen and pelvis dated 06/01/2022 FINDINGS: Left subclavian central venous port catheter with distal tip at the caudal superior vena cava. There is undulation the course of the catheter where it passes between the left anterior first rib and left clavicle but without evident flattening or catheter fracture. Mild progression of coarse reticular a nd airspace opacities with peripheral and lower lung predominance consistent with usual interstitial pneumonia pattern chronic interstitial lung disease. Difficult to exclude superimposed pulmonary tigre a or pneumonia. No pleural effusion or pneumothorax. Cardiomediastinal silhouette is within normal li mits for AP technique. IMPRESSION: 1. Left subclavian central venous port catheter tip in the caudal superior vena cava. Undulation cour se of the catheter but without flattening of the catheter where it passes between the anterior first rib and clavicle which could predispose towards pincer off syndrome and potentially catheter fracture and embolization. 2. Chronic coarse peripheral and lower lung predominant interstitial lung disease with appearance on prior CT most consistent with usual interstitial pneumonia. The opacities are slightly increased sinc e 2020 which could represent either progression of interstitial lung disease or superimposed mild pul monary edema or pneumonia. Reviewed, dictated and finalized at location A. IMPRESSION: 1. Left subclavian central venous port catheter tip in the caudal superior vena cava. Undulation course of the catheter but without flattening of the catheter where it passes between the anterior first rib and clavicle which could predis pose towards pincer off syndrome and potentially catheter fracture and emboliza tion. 2. Chronic coarse peripheral and lower lung predominant interstitial lung disea se with appearance on prior CT most consistent with usual interstitial pneumoni a. The opacities are slightly increased since 2020 which could represent either progression of interstitial lung disease or superimposed mild pulmonary edema or pneumonia.
--- NOTE | ~2022-08-27 | XR_ITS ---
EXAMINATION: XR abdomen obstructive series DATE: 08/31/2022 08:37 INDICATION: Ileus TECHNIQUE: Frontal supine and upright views of the abdomen were obtained. COMPARISON: CT dated 08/06/2022 FINDINGS: Moderate amount of gas scattered throughout the portion of the stomach, large and small bowels with n o dilated loops of gas-filled bowel to suggest obstruction. No free intraperitoneal gas. Likely embol ization coils in the right abdomen right hemipelvis and project over the left pubic body. Curtis [address]. Incompletely visualized left-sided central venous port catheter with distal tip in the midsuperi or vena cava. Chronic interstitial lung disease with coarse interstitial and airspace opacities in th e visualized mid to lower lungs. Heart size is normal. IMPRESSION: 1. Nonspecific bowel gas pattern consistent with provided history of ileus. 2. Chronic interstitial lung disease. Reviewed, dictated and finalized at location A.
--- NOTE | ~2022-08-27 | XR_ITS ---
EXAMINATION: XR abdomen obstructive series DATE: 08/30/2022 14:08 INDICATION: Abdominal bloating. TECHNIQUE: Upright and supine views of the abdomen on 3 radiographs were obtained. COMPARISON: CT abdomen and pelvis 08/06/2022 FINDINGS: There are multiple dilated loops of small bowel. The colon is decompressed. No free intrape ritoneal gas. There are embolization coils in the area of gastroduodenal artery. There is severe chronometer assembler meenu interstitial lung disease. A catheter overlies the bladder. There are embolization coils in right pelvis. IMPRESSION: 1. Dilated small bowel, consistent with adynamic ileus versus small bowel obstruction. 2. Severe chronic interstitial lung disease. Reviewed, dictated and finalized at location E. IMPRESSION: 1. Dilated small bowel, consistent with adynamic ileus versus small bowel obstr uction. 2. Severe chronic interstitial lung disease.
[2022-08-27 14:01] VITALS: BP 132/51; PULSE 86; RESP 18; TEMP 36.9; O2SAT 96
[2022-08-27] MEDS: SODIUM CHLORIDE 0.9% IV 1,000 ML 999 ML IV CONT (14:55)
[2022-08-27 15:02] LABS: Basophils Percent Auto 1.3 % (0.2-1.2); Eosinophils Percent Auto 1.3 % (0-4.4); Hemoglobin 10.1 g/dL (14.0-18.0); Immature Platelet Fraction Pct 11.3 % (0.9-11.2); Lymphocytes Absolute Auto 0.49 K/mm3 (0.9-3.2); Mean Corpuscular HGB Conc 33.7 g/dl (32-36); Mean Corpuscular Hemoglobin 31.5 pg (26-34); Mean Corpuscular Volume 93.5 fl (80-100); Mean Platelet Volume 11.9 fl (7.4-10.4); Monocytes Absolute Auto 0.1 K/mm3 (0.1-0.6); Monocytes Percent Auto 12.7 % (2.6-8.5); Neutrophils Absolute Auto 0.2 K/mm3 (1.3-6.7); Neutrophils Percent Auto 22.7 % (45.5-73.1); Platelet Count Result 87 k/mm3 (150-375); Red Blood Count 3.21 M/mm3 (4.6-6.20); Red Cell Distribution Width 13.7 % (11.5-14.5)
[2022-08-27 15:09] LABS: Alanine Aminotransferase 37 U/L (6-50); Albumin Level 3.2 g/dL (3.5-5.1); Alkaline Phosphatase 124 U/L (38-126); Anion Gap 5 mmol/L (8-16); Aspartate Amino Transferase 43 U/L (17-59); Bilirubin,Total 1.7 mg/dL (0.2-1.3); Blood Urea Nitrogen 11 mg/dL (9-20); Calcium 8.3 mg/dL (8.4-10.2); Carbon Dioxide 26 mmol/L (22-30); Chloride 98 mmol/L (98-107); Estimated CRCL calculation 107 ml/min; Estimated Glomerular Filt Rate > 60; Glucose 97 mg/dL (65-110); Potassium 3.8 mmol/L (3.4-5.0); Sodium 129 mmol/L (137-145)
[2022-08-27 15:28] LABS: White Blood Count 0.8 K/mm3 (4.5-10.0)
[2022-08-27 15:30] LABS: Platelet Estimate Decreased (Adequate)
[2022-08-27 15:31] LABS: Atypical Lymphocytes Present; Ovalocytes 1+ (NORMAL); Schistocytes None Seen (NORMAL)
--- NOTE | 2022-08-27 16:11 | PCCCNOTE ---
Met with patient and family at request of Dr. Aleman to discuss hospice. Met with patient and spouse Kaylie in H2, patient has been seeing Dr. Helton for metastatic terminal cancer. Patient and spouse do not know about hospice -education provided regarding what hospice. They are not familiar with any types of hospice agencies. [facility] is their hospital of choice and would like education for hospice agencies that come to this facility. Provided pamphlets for [facility], [facility], [facility] and [facility]. Patient and spouse are not ready to make any decisions at this time. Spouse says that they will look through the pamphlets and will call agency directly to set a meeting and/or establish care. Updated, Dr. Aleman
--- NOTE | 2022-08-27 17:20 | PC.NURSE ---
Notified MD Aleman unable to obtain urine sample at this time. unable to pass straight catheter, patient has history of enlarged prostate and has had urology place f[facility] in the past.
[2022-08-27 17:28] VITALS: BP 117/68; PULSE 81; RESP 15; O2SAT 93
--- NOTE | 2022-08-27 17:35 | ED.WEAKNESS ---
HPI - Weakness General Chief complaint: Weakness Stated complaint: sent by PCP for dehydration, urinary retention Time Seen by Provider: 08/27/22 14:14 History of Present Illness HPI Narrative: Patient is a 76-year-old male who presents ER with multiple issues. He sent to the ER by his oncologist. He is failing outpatient oral chemotherapy and needs to start hospice. Patient is neutropenic. He is developed a throat ulceration that is bleeding and causing discomfort with eating. He has not had anything to eat or drink for 5 days. He is also been unable to urinate. He has history of urinary retention. No fevers or chills or sweats. No chest pain or chest pressure. Patient with metastatic esophageal cancer. Related Data Home Medications Medication Instructions Recorded Confirmed glucosamine-chondroitin 750 mg-600 2 tablet PO DAILY 01/13/21 08/21/22 mg tablet megestrol 400 mg/10 mL (10 mL) 200 mg PO DAILY 01/29/22 08/21/22 oral suspension aspirin 81 mg chewable tablet 81 mg PO DAILY 02/13/22 08/21/22 ondansetron HCl 8 mg tablet 8 mg PO Q8H PRN nausea and vomiting 02/13/22 08/21/22 prochlorperazine maleate 10 mg 10 mg PO Q8H PRN Nausea 02/13/22 08/21/22 tablet Allergies Allergy/AdvReac Type Severity Reaction Status Date / Time amoxicillin Allergy Intermediate Swelling Verified 08/27/22 14:19 clavulanic acid Allergy Intermediate Swelling Verified 08/27/22 14:19 erythromycin base Allergy Intermediate Swelling Verified 08/27/22 14:19 Review of Systems Review of Systems: All systems reviewed & are unremarkable except as noted in HPI and below Constitutional: Constitutional: Denies chills, Denies fatigue and Denies fever(s) ENT: Denies nasal congestion and Reports sore throat Cardiovascular: Cardiovascular: Denies chest pain, Denies rapid heart rate and Denies radiating jaw, neck or arm pain Respiratory: Respiratory: Reports cough and Denies dyspnea Gastrointestinal: Gastrointestinal: Reports abdominal pain, Denies nausea and Denies vomiting Comments: decreased appetitite Genitourinary: Genitourinary: Reports oliguria and Denies dysuria PMFSH Past Medical History Medical History Abnormal gastrointestinal PET scan BPH loc w urin obs/LUTS Esophageal cancer, stage IV Patient receives chemotherapy every 2 weeks and is due for chemotherapy March 27 Hematuria Hypertension Metastatic adenocarcinoma Port-A-Cath in place Psoriasis Surgical History Surgical History H/O arthroscopic knee surgery H/O cystoscopy H/O hernia repair History of prostate surgery s/p embolization Family History Family History Father Cerebrovascular accident Mother Family history of malignant neoplasm Acute myocardial infarction Sibling Family history of malignant neoplasm of kidney sister Social History Social History Social History: the patient lives at home with his and he has 2 children. 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 The patient quit smoking many years ago in approximately 6 months ago he quit using chewing tobacco. He denies any marijuana or alcohol. His mac is a durable power regional cra for healthcare. Code status full code Smoking packs per day: 1.5 Smoking cigarettes per day: 30.0 Years smoked: 30 Smoking pack-years: 45.00 Smoking status: Former smoker Tobacco type: smokeless tobacco Smokeless tobacco user: chewing tobacco Second hand tobacco smoke exposure: No Smoking end date: 01/13/91 Additional smoking assessment comments: CHEWED TOBACCO FOR 30YEARS AND STOPPED 12/2020 Alcohol intake: never Substance use: never Substance use type: does not use Living arrangements: with family Occupation/Edu
[2022-08-27 18:07] LABS: Appearance Urine Clear (Clear); Bacteria Urine None Seen /hpf; Bilirubin Urine 1+ (Negative); Blood Urine 3+ (Negative); Color Urine Dark Yellow (Yellow); Glucose Urine UA Negative (Negative); Ketones Urine Negative (Negative); Leukocyte Esterase Ur Trace LEU/UL (Negative); Nitrate Urine Negative (Negative); Non Pathogenic Casts 0-2; Protein Urine Trace mg/dL (Negative); RBC Urine >100 /hpf (0-2); Specific Grav Ur 1.019 (1.001-1.035); Squamous Epithelial Cell Urine None seen /hpf (Few); WBC Urine 0-5 /hpf
[2022-08-27 18:11] LABS: Add Urine Microscopic? YES
[2022-08-27] MEDS: CEFEPIME 2 GM/NS 50 ML 2 GM/50 ML BAG IVPB (19:35)
[2022-08-27] MEDS: FLUCONAZOLE 100 MG TABLET PO (19:35)
[2022-08-27] MEDS: LACTATED RINGERS 1,000 ML 125 ML IV CONT (19:56)
[2022-08-27 20:07] VITALS: BP 120/60; PULSE 83; O2SAT 94
--- NOTE | 2022-08-27 20:09 | PM.IMHP ---
H&P: HPI History of Present Illness Date/Time: 08/27/22 20:09 Chief Complaint: Weakness Narrative: This is a 76-year-old male patient who has a history of esophageal cancer. The patient was sent to the emergency room by his oncologist. The patient is failing outpatient oral chemotherapy and is considering hospice. Patient is neutropenic. He developed the throat ulceration that is bleeding and causing discomfort when eating. The patient does not had anything to eat or drink for 5 days. The patient was unable to urinate a Curtis catheter was placed. He does have a history of urinary retention. Patient has metastatic esophageal cancer. The patient was given IV fluids, cefepime, Tylenol and Diflucan. His white count is 0.8. His H&H is 10.1 and 30.0. Platelet count is 87. Sodium is 129. Total bilirubin 1.7. Urine has 3+ urine urine bilirubin 1+ trace leukocyte esterase and greater than 100 RBCs. Chest x-ray was read as the following1. Left subclavian central venous port catheter tip in the caudal superior vena cava. Undulation course of the catheter but without flattening of the catheter where it passes between the anterior first rib and clavicle which could predispose towards pincer off syndrome and potentially catheter fracture and embolization. 2. Chronic coarse peripheral and lower lung predominant interstitial lung disease with appearance on prior CT most consistent with usual interstitial pneumonia. The opacities are slightly increased since 2020 which could represent either progression of interstitial lung disease or superimposed mild pulmonary edema or pneumonia. The patient is being admitted to observation status on the date of service of 08/27/2022. Review of Systems Review of Systems: All systems reviewed & are unremarkable except as noted in HPI and below Constitutional: Constitutional: Reports as per HPI and Reports no additional constitutional complaints Eyes: Eyes: Reports as per HPI and Reports no additional eye complaints ENT: Reports system reviewed and no additional complaints, except as documented and Reports Normal hearing present Cardiovascular: Cardiovascular: Reports no additional cardiovascular complaints Respiratory: Respiratory: Reports no additional respiratory complaints and Reports no additional respiratory complaints Gastrointestinal: Gastrointestinal: Reports as per HPI and Reports no additional gastrointestinal complaints Musculoskeletal: Musculoskeletal: Reports no additional musculoskeletal complaints Integumentary/Breasts: Skin/Breast: Reports system reviewed and no additional complaints, except as docu and Reports as per HPI Neurologic: Reports system reviewed and no additional complaints, except as documented, Reports as per HPI and Reports Normal hearing present Psychiatric: Psychiatric: Reports no additional psychiatric complaints and Reports as per HPI Endocrine: Endocrine: Reports no additional endocrine complaints Hematologic/Lymphatic: Hematologic/Lymphatic: Reports no additional hematologic/lymphatic complaints Allergic/Immunologic: Allergic/Immunologic: Reports no additional allergic/immunologic complaints PMFSH Past Medical History Medical History Abnormal gastrointestinal PET scan BPH loc w urin obs/LUTS Esophageal cancer, stage IV Patient receives chemotherapy every 2 weeks and is due for chemotherapy March 27 Hematuria Hypertension Metastatic adenocarcinoma Port-A-Cath in place Psoriasis Surgical History Surgical History H/O arthroscopic knee surgery H/O cystoscopy H/O hernia repair History of prostate surgery s/p embolization Family History Family History Father Cerebrovascular accident Mother Family history of malignant neoplasm Acute myocardial infarction Sibling Family history of malignan
[2022-08-27 20:53] VITALS: BMI 24.3
[2022-08-27 21:00] VITALS: BMI 24.3
[2022-08-27 21:05] VITALS: BP 129/68; PULSE 82; RESP 16; TEMP 37.2; O2SAT 92
--- NOTE | 2022-08-27 21:08 | ADMGEN ---
This patient, Dieudonne Mejia Jr., was admitted to [facility] Surg Room 317-02 at 2044. Patient/family oriented to hospital policies and general routines including ID bracelet, bed and alarms, visiting hours, pain management, procedures, bathroom and other care routines, personal items, smoking policy, room service/diet, and visiting hours. Information on how to activate the Rapid Response Team has been discussed. Patient/Family are encouraged to report perceived risks to care and to ask questions if they do not understand what they are told or what they should do.
[2022-08-27] MEDS: MAGNES & ALUM HYD/SIMETH/DIPHENHYD/LIDOCAINE 119 ML MOUTHWASH BY MOUTH (22:20)
[2022-08-28] MEDS: MAGNES & ALUM HYD/SIMETH/DIPHENHYD/LIDOCAINE 119 ML MOUTHWASH BY MOUTH ×6 (01:18→21:13)
[2022-08-28] MEDS: SODIUM CHLORIDE 0.9% IV 1,000 ML 100 ML IV CONT ×2 (01:18→13:14)
[2022-08-28 01:57] LABS: Anion Gap 2 mmol/L (8-16); Blood Urea Nitrogen 12 mg/dL (9-20); Calcium 7.9 mg/dL (8.4-10.2); Carbon Dioxide 27 mmol/L (22-30); Chloride 99 mmol/L (98-107); Estimated CRCL calculation 107 ml/min; Estimated Glomerular Filt Rate > 60; Glucose 90 mg/dL (65-110); Potassium 3.9 mmol/L (3.4-5.0); Sodium 128 mmol/L (137-145)
[2022-08-28 05:07] VITALS: BP 121/56; PULSE 82; RESP 18; TEMP 37.3; O2SAT 90
[2022-08-28] MEDS: CEFEPIME 2 GM/NS 50 ML 2 GM/50 ML BAG IVPB ×3 (06:16→21:13)
[2022-08-28 06:33] LABS: Basophils Percent Auto 1.4 % (0.2-1.2); Eosinophils Percent Auto 1.4 % (0-4.4); Hematocrit 24.8 % (42.0-52.0); Hemoglobin 8.3 g/dL (14.0-18.0); Immature Granulocyte Absolute 0.01 K/mm3 (0.00-0.031); Immature Granulocyte Percent A 1.4 % (0-0.5); Immature Platelet Fraction Pct 8.5 % (0.9-11.2); Lymphocytes Absolute Auto 0.47 K/mm3 (0.9-3.2); Lymphocytes Percent Auto 63.5 % (18.3-44.2); Mean Corpuscular HGB Conc 33.5 g/dl (32-36); Mean Corpuscular Volume 92.5 fl (80-100); Mean Platelet Volume 11.7 fl (7.4-10.4); Monocytes Absolute Auto 0.1 K/mm3 (0.1-0.6); Monocytes Percent Auto 17.6 % (2.6-8.5); Neutrophils Absolute Auto 0.1 K/mm3 (1.3-6.7); Neutrophils Percent Auto 14.7 % (45.5-73.1); Platelet Count Result 68 k/mm3 (150-375); Red Blood Count 2.68 M/mm3 (4.6-6.20); Red Cell Distribution Width 13.7 % (11.5-14.5)
[2022-08-28 06:40] LABS: Lactic Acid Reflex 1.1 mmol/L (0.7-2.0)
[2022-08-28 06:43] LABS: Alanine Aminotransferase 31 U/L (6-50); Albumin Level 2.5 g/dL (3.5-5.1); Alkaline Phosphatase 106 U/L (38-126); Anion Gap 3 mmol/L (8-16); Aspartate Amino Transferase 32 U/L (17-59); Bilirubin,Total 1.6 mg/dL (0.2-1.3); Blood Urea Nitrogen 11 mg/dL (9-20); Calcium 7.8 mg/dL (8.4-10.2); Carbon Dioxide 26 mmol/L (22-30); Chloride 100 mmol/L (98-107); Estimated CRCL calculation 107 ml/min; Estimated Glomerular Filt Rate > 60; Glucose 87 mg/dL (65-110); Magnesium 1.6 mg/dL (1.6-2.3); Potassium 3.7 mmol/L (3.4-5.0); Sodium 129 mmol/L (137-145)
[2022-08-28 06:57] LABS: White Blood Count 0.7 K/mm3 (4.5-10.0)
[2022-08-28] MEDS: FILGRASTIM-SNDZ 480 MCG/0.8 ML SYRINGE SUB-Q (09:21)
[2022-08-28 09:41] VITALS: PULSE 70; O2SAT 94
--- NOTE | 2022-08-28 10:26 | PM.IMPN ---
Progress Note: A&P Assessment and Plan (1) Metastatic adenocarcinoma: Code(s): C79.9 - Secondary malignant neoplasm of unspecified site Status: Acute Assessment and Plan: The patient has advanced esophageal cancer. I spoke with the and she has brochures for hospice. The wants us to make the patient comfortable. She wants to continue with the antibiotics for tonight. And continue with the IV fluids. The patient had a Curtis catheter placed due to urinary retention. Continue with analgesics and IV fluids. (2) Hypertension: Code(s): I10 - Essential (primary) hypertension Status: Chronic Assessment and Plan: Continue with p.r.n. hydralazine. (3) BPH loc w urin obs/LUTS: Code(s): N40.1 - Benign prostatic hyperplasia with lower urinary tract symptoms Status: Chronic Assessment and Plan: The patient currently has a Curtis catheter. (4) Ulcer of the throat: Code(s): J38.7 - Other diseases of larynx Status: Acute Assessment and Plan: The patient was started on acyclovir. He is currently on cefepime. Continue with analgesics ? Need for antibiotics. Plan Hospice to see the patient. Subjective Date/time seen: 08/28/22 10:26 No complaints Exam Const: General: cooperative, comfortable, no acute distress, well developed, alert, awake, Physically active, ill appearing, tired appearing, average body habitus, well nourished and thin Nutritional Appearance: average body habitus, well nourished and thin Orientation/consciousness: oriented to person, oriented to place, oriented to time and patient oriented x3 Limitations: no limitations HENMT: Head: normal to inspection, No palpable skull fracture present, normocephalic, atraumatic and abrasion Ears: hearing grossly normal bilaterally and external ears normal Face/Nose/Sinus: Normal external nose present and Normal nares present Eyes: General: appearance normal, both eyes and all related structures Alignment and Position: alignment normal Periorbital: periorbital findings normal Eyelids: eyelids normal Sclera: sclerae normal Pupils: Equal, round and reactive pupils present EOM: EOMs intact bilaterally Neck: Neck: normal visual inspection, full ROM, no lymphadenopathy, trachea midline and supple Chest: Chest palpation & inspection: normal inspection of the chest Resp: Effort & Inspection: normal respiratory effort Auscultation: clear to auscultation bilaterally Cardio: Palpation: normal PMI Rate: regular rate Rhythm: regular rhythm Heart sounds: S1 normal heart sound present and S2 normal heart sound present Peripheral pulses: Peripheral pulses 2+ throughout GI: Inspection: normal to inspection Auscultation: normal bowel sounds Rectal Exam: deferred Urinary Catheter: Urinary Catheter: patent and draining and urine dark Back/Spine/Pelvis: Cervical Spine: cervical ROM normal Skin: General skin exam: normal color Lesions: no lesions Rashes: no rashes Trauma: no lacerations or abrasions Wounds: no wounds Hair: normal Nails: normal Neuro: General: oriented to person, oriented to place, oriented to time and patient oriented x3 Cranial nerves: Yes Equal, round and reactive pupils present and Yes Normal hearing present Cognition (Neuro): normal cognition Motor exam (neuro): 5/5 motor strength present throughout Sensory Exam: normal sensation Other: Generalized weakness Extrem: General: normal to inspection Right upper extremity: normal to inspection and shoulder/upper arm Left upper extremity: normal to inspection and shoulder/upper arm Right lower extremity: normal to inspection Left lower extremity: normal to inspection Psych: Appearance: grossly normal Mental Status: mental status grossly normal Speech and movement: Normal speech and movement present Affect: normal affect Attitude: cooperative Thought process: Normal thought process present Insight: Good insight present (Ps
[2022-08-28 11:47] VITALS: BMI 24.3
[2022-08-28] MEDS: PANTOPRAZOLE 40 MG TABLET PO (12:37)
[2022-08-28] MEDS: LOPERAMIDE HCL 2 MG CAPSULE PO (12:37)
[2022-08-28 14:00] VITALS: BP 116/56; PULSE 74; RESP 19; TEMP 36.2; O2SAT 95
[2022-08-28] MEDS: CENTRAL LINE FLUSH 10 ML IV PUSH (14:34)
--- NOTE | 2022-08-28 15:17 | PCPTNOTE ---
Attempted PT evaluation, pt refused due to feeling tired. Will follow.
[2022-08-28] MEDS: TAMSULOSIN HCL 0.4 MG CAPSULE PO (17:05)
[2022-08-28 22:00] VITALS: BP 122/67; PULSE 73; RESP 16; TEMP 36.6; O2SAT 93
[2022-08-29] MEDS: MAGNES & ALUM HYD/SIMETH/DIPHENHYD/LIDOCAINE 119 ML MOUTHWASH BY MOUTH ×6 (00:34→20:09)
[2022-08-29] MEDS: SODIUM CHLORIDE 0.9% IV 1,000 ML 100 ML IV CONT ×2 (03:25→17:08)
[2022-08-29] MEDS: CEFEPIME 2 GM/NS 50 ML 2 GM/50 ML BAG IVPB ×3 (05:27→23:05)
[2022-08-29 06:00] VITALS: BP 117/60; PULSE 76; RESP 18; TEMP 36.1; O2SAT 94
[2022-08-29] MEDS: CENTRAL LINE FLUSH 10 ML IV PUSH ×3 (06:11→23:06)
[2022-08-29] MEDS: FILGRASTIM-SNDZ 480 MCG/0.8 ML SYRINGE SUB-Q (08:52)
[2022-08-29] MEDS: TAMSULOSIN HCL 0.4 MG CAPSULE PO ×2 (08:53→17:06)
[2022-08-29] MEDS: ENALAPRIL MALEATE 10 MG TABLET PO (08:53)
[2022-08-29] MEDS: PANTOPRAZOLE 40 MG TABLET PO (08:54)
--- NOTE | 2022-08-29 11:51 | PCOTNOTE ---
Attempted to see pt. for occupational therapy evaluation. Pt. states that he weak, and will do what we want him to do. , then stated he did not want to do therapy. Pt. educated on benefits of continuing to participate in activities, and out of bed activities with nursing and staff, pt. agreeable, but did not want to get up to eat lunch at this time. Nursing and care coordination aware. Plan to follow up with hospitalist.
--- NOTE | 2022-08-29 13:27 | PM.IMPN ---
Progress Note: A&P Assessment and Plan (1) Esophageal cancer, stage IV: Code(s): C15.9 - Malignant neoplasm of esophagus, unspecified Status: Chronic (2) Hematuria: Code(s): R31.9 - Hematuria, unspecified Status: Acute (3) Acute urinary retention: Code(s): R33.8 - Other retention of urine Status: Acute (4) Port-A-Cath in place: Code(s): Z95.828 - Presence of other vascular implants and grafts Status: Acute (5) Neutropenia: Code(s): D70.9 - Neutropenia, unspecified Status: Acute (6) Ulcer of the throat: Code(s): J38.7 - Other diseases of larynx Status: Acute Plan 76-year-old male patient with PMH of esophageal cancer, failing outpatient chemotherapy presented with throat pain, poor appetite, along with failure to thrive. Had hematuria, epistaxis. Found to be pancytopenic. 1)Chemotherapy Related pancytopenia: Currently on GSF Will get oncology consult Monitor Hemoglobin, WBC and Platelet count Transfuse PRBC and Platelet as per need based on transfusion threshold F/u blood culture c/w Cefepime Add Vancomycin Having diarrhea Will check Cdiff 2)Mouth Ulcers: C/w magic mouthwash Add nystatin swish and spit c/w Acyclovir for 5 days 3)Metastatic esophageal Cancer: Poor prognosis 4)Failure to thrive+Severe Protein Calorie Malnutrition: Nutritional support as needed c/w IV fluids Has hyponatremia Will recheck BMP in AM 5)DVT ppx: SCD 6)Code:DNR, plan to start hospice upon discharge 7)Dispo:pending improvement, 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 Time Spent With Patient Time with patient: 25 - 35 minutes Subjective Date/time seen: 08/29/22 13:27 Interval history: c/o diarrhea poor appetite not feeling well in general at bedside Review of Systems Review of Systems: All systems reviewed & are unremarkable except as noted in HPI and below Exam Const: Other: fragile elderly gentleman HENMT: Other: ulcers seen in mucosal area Eyes: Sclera: sclerae normal Neck: Neck: supple Resp: Effort & Inspection: normal respiratory effort Auscultation: diminished lung sounds Cardio: Rate: regular rate Rhythm: regular rhythm GI: GI Palp: Yes Soft to palpation Auscultation: normal bowel sounds Skin: General skin exam: normal color Extrem: General: normal to inspection Psych: Mental Status: mental status grossly normal Objective Data Vital Signs Vital Signs: Vital Signs - 24 hr 08/28/22 14:00 08/28/22 22:00 08/28/22 20:00 Temperature 97.2 F L 97.8 F Pulse Rate 74 73 Respiratory Rate 19 16 Blood Pressure 116/56 L 122/67 Pulse Oximetry 95 93 Oxygen Delivery Room Air 08/29/22 06:00 Temperature 96.9 F L Pulse Rate 76 Respiratory Rate 18 Blood Pressure 117/60 Pulse Oximetry 94 Oxygen Delivery Intake/Output Intake/Output: Intake & Output 08/26/22 08/27/22 08/28/22 08/29/22 23:59 23:59 23:59 23:59 Intake Total 1160 4130 1290 Output Total 1615 733 1958 Balance 160 3880 -10 Meds/Results Medications: Active Medications Generic Name Dose Route Start Last Admin Trade Name Freq PRN Reason Stop Dose Admin Enalapril Maleate 10 mg 08/29/22 09:00 08/29/22 08:53 Enalapril Maleate 10 Mg Tablet PO 10 mg DAILY JOAQUIM Administration Filgrastim-Sndz 480 mcg 08/28/22 09:00 08/29/22 08:52 Filgrastim-Sndz 480 Mcg/0.8 Ml Syringe SUB-Q 480 mcg DAILY JOAQUIM Administration Heparin Sodium (Beef Lung) 50 units 08/28/22 09:00 08/29/22 08:54 Heparin Flush 50 Units/5 Ml Syringe IV PUSH Not Given QAM JOAQUIM Heparin Sodium (Beef Lung) 50 units 08/28/22 06:48 Heparin Flush 50 Units/5 Ml Syringe IV PUSH PRN PRN after intermittent infusion Heparin Sodium (Beef Lung) 50 units 08/28/22 06:48 Heparin Flush 50 Units/5 Ml Syringe IV PUSH PRN PRN after blood draws Heparin Sodium (Porcine) 500 units 08/28/22 06:48 Heparin Sodium
[2022-08-29 14:00] VITALS: BP 138/60; PULSE 82; RESP 20; TEMP 36.7; O2SAT 91
[2022-08-29] MEDS: ACETAMINOPHEN 325 MG TABLET 650 MG PO ×2 (14:44→20:09)
[2022-08-29] MEDS: NYSTATIN 100,000 UNITS/ML SUSP 5 ML ORAL.SUSP PO ×2 (17:06→20:09)
[2022-08-29 19:13] LABS: Toxigenic C. Diff NEGATIVE (NEGATIVE)
[2022-08-29] MEDS: LOPERAMIDE HCL 2 MG CAPSULE PO (20:09)
[2022-08-29 21:52] VITALS: BP 120/67; PULSE 79; RESP 20; TEMP 37.3; O2SAT 90
[2022-08-30] MEDS: ACETAMINOPHEN 325 MG TABLET 650 MG PO ×3 (00:26→21:41)
[2022-08-30] MEDS: MAGNES & ALUM HYD/SIMETH/DIPHENHYD/LIDOCAINE 119 ML MOUTHWASH BY MOUTH ×6 (00:27→21:42)
[2022-08-30] MEDS: CEFEPIME 2 GM/NS 50 ML 2 GM/50 ML BAG IVPB ×2 (05:27→13:01)
[2022-08-30] MEDS: CENTRAL LINE FLUSH 10 ML IV PUSH ×3 (05:27→21:43)
[2022-08-30 06:00] VITALS: BP 123/66; PULSE 81; RESP 18; TEMP 36.7; O2SAT 91
[2022-08-30 06:21] LABS: Estimated CRCL calculation 107 ml/min; Estimated Glomerular Filt Rate > 60
[2022-08-30] MEDS: NYSTATIN 100,000 UNITS/ML SUSP 5 ML ORAL.SUSP PO ×4 (08:51→21:42)
[2022-08-30] MEDS: PANTOPRAZOLE 40 MG TABLET PO (08:51)
[2022-08-30] MEDS: TAMSULOSIN HCL 0.4 MG CAPSULE PO ×2 (08:51→17:42)
[2022-08-30] MEDS: ENALAPRIL MALEATE 10 MG TABLET PO (08:52)
[2022-08-30] MEDS: FILGRASTIM-SNDZ 480 MCG/0.8 ML SYRINGE SUB-Q (08:52)
--- NOTE | 2022-08-30 10:48 | PCPTNOTE ---
Spoke with hospitalist who is OK with DC therapy orders due to pt not wanting to participate at this time.
[2022-08-30 11:02] LABS: Hematocrit 28.3 % (42.0-52.0); Hemoglobin 9.6 g/dL (14.0-18.0); Immature Platelet Fraction Pct 9.1 % (0.9-11.2); Mean Corpuscular HGB Conc 33.9 g/dl (32-36); Mean Corpuscular Hemoglobin 31.4 pg (26-34); Mean Corpuscular Volume 92.5 fl (80-100); Mean Platelet Volume 11.3 fl (7.4-10.4); Platelet Count Result 103 k/mm3 (150-375); Red Blood Count 3.06 M/mm3 (4.6-6.20); Red Cell Distribution Width 14.1 % (11.5-14.5); White Blood Count 2.8 K/mm3 (4.5-10.0)
[2022-08-30 11:11] LABS: Alanine Aminotransferase 36 U/L (6-50); Albumin Level 2.4 g/dL (3.5-5.1); Alkaline Phosphatase 119 U/L (38-126); Anion Gap 1 mmol/L (8-16); Aspartate Amino Transferase 46 U/L (17-59); Bilirubin,Total 1.3 mg/dL (0.2-1.3); Blood Urea Nitrogen 8 mg/dL (9-20); Calcium 7.7 mg/dL (8.4-10.2); Carbon Dioxide 26 mmol/L (22-30); Chloride 102 mmol/L (98-107); Estimated CRCL calculation 107 ml/min; Estimated Glomerular Filt Rate > 60; Glucose 113 mg/dL (65-110); Potassium 3.4 mmol/L (3.4-5.0); Sodium 129 mmol/L (137-145)
[2022-08-30 11:56] LABS: Band Neutrophils Percent 24 % (0-6); Eosinophils Absolute Manual 0.08 K/mm3 (0.02-0.5); Eosinophils Percent Manual 3 % (0-4); Lymphocytes Absolute Manual 1.06 K/mm3 (1.1-4.5); Lymphocytes Percent Manual 38 % (18-44); Monocytes Absolute Manual 0.47 K/mm3 (0.1-0.90); Monocytes Percent Manual 17 % (3-9); Neutrophils Absolute Manual 1.09 K/mm3 (1.3-6.7); Neutrophils Percent Manual 15 % (46-73); Nucleated Red Blood Cells 12 %; Promyelocytes Percent 3 %
[2022-08-30 11:57] LABS: Burr Cells 2+ (NORMAL); Platelet Estimate Decreased (Adequate); Schistocytes None Seen (NORMAL)
[2022-08-30 11:58] LABS: Anisocytosis 1+ (NORMAL); Atypical Lymphocytes Present
--- NOTE | 2022-08-30 12:45 | PDONCCN ---
HPI - Date of Consult Date/Time: 08/30/22 12:45 Requesting Physician: Tesfaye Rachel MD Primary Care Provider: Fuentes Nguyễn MD - Consult Narrative Reason for consult: Metastatic esophageal cancer Narrative: Dieudonne Mejia Jr. is a 76 year old male This is a 76-year-old male with history of metastatic esophageal carcinoma diagnosed in January 2021. He received chemotherapy with FOLFOX regimen and then had Y 90 treatment for the left hepatic lobe mass done in August of 2021. He was lately or on 3rd line chemotherapy with Cyramza and Taxol which he was not able to tolerate. Patient was sent to the hospital from the clinic due to failure to thrive tiredness and fatigue dehydration sore throat a neutropenia. On admission his white count was 0.8. He was started on Neupogen with improvement in the WBC count. He was also diagnosed with uterine infection. Patient has throat ulceration with some bleeding and difficulty swallowing and eating. He has been losing weight. Due to neutropenia he was started on cefepime. He continues to feel worse. Hospice has been consulted. Review of Systems - Review of Systems All systems reviewed & are unremarkable except as noted in HPI and bel - Neurologic Reports system reviewed and no additional complaints, except as documented, Reports hearing normal [facility] Medical History: Medical History (Last Reviewed 08/28/22 @ 00:36 by Lorenza Spangler NP) Abnormal gastrointestinal PET scan BPH loc w urin obs/LUTS Esophageal cancer, stage IV Patient receives chemotherapy every 2 weeks and is due for chemotherapy March 27 Hematuria Hypertension Metastatic adenocarcinoma Port-A-Cath in place Psoriasis Surgical History: Surgical History (Last Reviewed 08/28/22 @ 00:36 by Lorenza Spangler NP) H/O arthroscopic knee surgery H/O cystoscopy H/O hernia repair History of prostate surgery s/p embolization Family History: Family History (Last Reviewed 08/28/22 @ 00:36 by Lorenza Spangler NP) Father Cerebrovascular accident Mother Family history of malignant neoplasm Acute myocardial infarction Sibling Family history of malignant neoplasm of kidney sister - Social History Social History: Social History (Last Updated 08/28/22 @ 00:36 by Lorenza Spangler NP) Gender Identity: Gender identity (if verbalized by the patient): Male Alcohol Use: Alcohol intake: never Substance Use: Substance use: never Substance use type: does not use Others: Spiritual care concerns: No Living Arrangements: Living arrangements: with family Oppucation/Education: Occupation/Education: retired Smoking Status: Smoking status: Former smoker Tobacco type: cigarettes Smokeless tobacco user: chewing tobacco Second hand tobacco smoke exposure: No Smoking end date: 01/13/91 Approximate Smoking End Date: 1979 Smoking Pack-years: Smoking packs per day: 2 Smoking cigarettes per day: 40.0 Years smoked: 30 Smoking pack-years: 60.00 Comments: Additional smoking assessment comments: CHEWED TOBACCO FOR 30YEARS AND STOPPED 12/2020 Social Determinants of Health: Has the Lack of Transportation Kept You From Medical Appointments or From Getting Medications?: No Within the Past 12 Months, Were You Worried Whether Your Food Would Run Out Before You Got Money to Buy More?: Never True What is Your Housing Situation Today?: I Have Housing Are You Worried That in the Next 2 Months, You May Not Have Your Own Housing to Live In?: No Do You Have Trouble Paying Your Heating Or Electricity Bill?: No Do You Have Trouble Paying For Medicines?: No Are You Currently Unemployed and Looking for Work?: No Highest Level of Education Completed: High School Diploma/GED Do You Have Trouble With Childcare or the Care of a Family Member?: No Exam - Vital Signs Vital Signs
[2022-08-30] MEDS: SODIUM CHLORIDE 0.9% IV 1,000 ML 100 ML IV CONT (12:56)
[2022-08-30 14:00] VITALS: BP 128/59; PULSE 80; RESP 20; TEMP 36.8; O2SAT 90
--- NOTE | 2022-08-30 14:10 | PM.IMPN ---
Progress Note: A&P Assessment and Plan (1) Esophageal cancer, stage IV: Code(s): C15.9 - Malignant neoplasm of esophagus, unspecified Status: Chronic (2) Hematuria: Code(s): R31.9 - Hematuria, unspecified Status: Acute (3) Acute urinary retention: Code(s): R33.8 - Other retention of urine Status: Acute (4) Port-A-Cath in place: Code(s): Z95.828 - Presence of other vascular implants and grafts Status: Acute (5) Neutropenia: Code(s): D70.9 - Neutropenia, unspecified Status: Acute (6) Ulcer of the throat: Code(s): J38.7 - Other diseases of larynx Status: Acute Plan 76-year-old male patient with PMH of esophageal cancer, failing outpatient chemotherapy presented with throat pain, poor appetite, along with failure to thrive. Had hematuria, epistaxis. Found to be pancytopenic. 1)Chemotherapy Related pancytopenia: Pancytopenia has improved Will stop GSF Apprciate Oncology hlp No fever, continues to have diarrhea, cdiff negative Since WBC count has improved, Will stop cefepime and vanc 2)Mouth Ulcers: C/w magic mouthwash c/w nystatin swish and spit c/w Acyclovir for 5 days 3)Metastatic esophageal Cancer: Poor prognosis Appreciate Oncology help 4)Failure to thrive+Severe Protein Calorie Malnutrition: Nutritional support as needed c/w IV fluids Has hyponatremia Supplement potassium for hypokalemia Will recheck BMP in AM Obtain Xray abdomen for bloating Maalox 5)DVT ppx: SCD 6)Code:DNR, plan to start hospice upon discharge 7)Dispo: extremely poor snf prognosis, can pln for discharge tomorrow home with hospice care Time Spent With Patient Time with patient: 15 - 25 minutes Subjective Date/time seen: 08/30/22 14:10 Interval history: continues to feel worse c/o dry nose abdominal bloating diarrhea poor appetite Review of Systems Review of Systems: All systems reviewed & are unremarkable except as noted in HPI and below Exam Const: Other: fragile elderly gentleman HENMT: Other: ulcers seen in mucosal area Eyes: Sclera: sclerae normal Neck: Neck: supple Resp: Effort & Inspection: normal respiratory effort Auscultation: diminished lung sounds Cardio: Rate: regular rate Rhythm: regular rhythm GI: GI Palp: Yes Soft to palpation Auscultation: normal bowel sounds Skin: General skin exam: normal color Extrem: General: normal to inspection Psych: Mental Status: mental status grossly normal Objective Data Vital Signs Vital Signs: Vital Signs - 24 hr 08/29/22 21:52 08/29/22 20:00 08/30/22 06:00 Temperature 99.1 F 98.0 F Pulse Rate 79 81 Respiratory Rate 20 18 Blood Pressure 120/67 123/66 Pulse Oximetry 90 91 Oxygen Delivery Room Air Intake/Output Intake/Output: Intake & Output 08/27/22 08/28/22 08/29/22 08/30/22 23:59 23:59 23:59 23:59 Intake Total 1160 4130 3240 2160 Output Total 4196 400 7571 1150 Balance 160 3880 1590 1010 Meds/Results Medications: Active Medications Generic Name Dose Route Start Last Admin Trade Name Freq PRN Reason Stop Dose Admin Acetaminophen 650 mg 08/29/22 13:43 08/30/22 04:05 Acetaminophen 325 Mg Tablet PO 650 mg Q4H PRN Administration Headache Al Hydrox/Mg Hydrox/Simethicone 30 ml 08/30/22 13:34 Mag Hydrox/Al Hydrox/Simeth 30 Ml Udc PO Q6H PRN Indigestion Enalapril Maleate 10 mg 08/29/22 09:00 08/30/22 08:52 Enalapril Maleate 10 Mg Tablet PO 10 mg DAILY JOAQUIM Administration Filgrastim-Sndz 480 mcg 08/28/22 09:00 08/30/22 08:52 Filgrastim-Sndz 480 Mcg/0.8 Ml Syringe SUB-Q 480 mcg DAILY JOAQUIM Administration Heparin Sodium (Beef Lung) 50 units 08/28/22 09:00 08/30/22 08:55 Heparin Flush 50 Units/5 Ml Syringe IV PUSH Not Given QAM JOAQUIM Heparin Sodium (Beef Lung) 50 units 08/28/22 06:48 Heparin Flush 50 Units/5 Ml Syringe IV PUSH PRN PRN after int
[2022-08-30] MEDS: POTASSIUM CHLORIDE 20 MEQ TABLET 40 MEQ PO (14:29)
[2022-08-30] MEDS: SALINE 0.65% NAS SOLN 44 ML BTL 1 SPRAY NASAL (17:58)
[2022-08-30] MEDS: SODIUM CHLORIDE 0.9% IV 1,000 ML 75 ML IV CONT (17:58)
[2022-08-30 22:00] VITALS: BP 107/51; PULSE 82; RESP 22; TEMP 36.6; O2SAT 88
[2022-08-31] MEDS: MAGNES & ALUM HYD/SIMETH/DIPHENHYD/LIDOCAINE 119 ML MOUTHWASH BY MOUTH ×3 (01:54→09:27)
[2022-08-31] MEDS: CENTRAL LINE FLUSH 10 ML IV PUSH ×2 (05:08→15:27)
[2022-08-31] MEDS: SODIUM CHLORIDE 0.9% IV 1,000 ML 75 ML IV CONT (05:08)
[2022-08-31 05:35] LABS: Hematocrit 26.4 % (42.0-52.0); Hemoglobin 8.8 g/dL (14.0-18.0); Mean Corpuscular HGB Conc 33.3 g/dl (32-36); Mean Corpuscular Hemoglobin 30.9 pg (26-34); Mean Corpuscular Volume 92.6 fl (80-100); Mean Platelet Volume 11.2 fl (7.4-10.4); Platelet Count Result 101 k/mm3 (150-375); Red Blood Count 2.85 M/mm3 (4.6-6.20); Red Cell Distribution Width 14.1 % (11.5-14.5); White Blood Count 8.8 K/mm3 (4.5-10.0)
[2022-08-31 05:55] VITALS: BP 109/53; PULSE 82; RESP 18; TEMP 36.5; O2SAT 90
[2022-08-31 06:01] LABS: Anion Gap 3 mmol/L (8-16); Blood Urea Nitrogen 9 mg/dL (9-20); Calcium 7.4 mg/dL (8.4-10.2); Carbon Dioxide 24 mmol/L (22-30); Chloride 101 mmol/L (98-107); Estimated CRCL calculation 107 ml/min; Estimated Glomerular Filt Rate > 60; Glucose 88 mg/dL (65-110); Potassium 3.7 mmol/L (3.4-5.0); Sodium 128 mmol/L (137-145)
[2022-08-31 06:55] LABS: Band Neutrophils Percent 19 % (0-6); Lymphocytes Absolute Manual 1.14 K/mm3 (1.1-4.5); Lymphocytes Percent Manual 13 % (18-44); Neutrophils Percent Manual 56 % (46-73); Total Cells Counted 100
[2022-08-31 06:56] LABS: Metamyelocytes Percent 2 %; Monocytes Percent Manual 8 % (3-9); Myelocytes Percent 2 %; Nucleated Red Blood Cells 5 %; Platelet Estimate Decreased (Adequate)
[2022-08-31 06:57] LABS: Burr Cells 3+ (NORMAL); Schistocytes None Seen (NORMAL)
[2022-08-31] MEDS: TAMSULOSIN HCL 0.4 MG CAPSULE PO ×2 (09:27→17:46)
[2022-08-31] MEDS: PANTOPRAZOLE 40 MG TABLET PO (09:27)
[2022-08-31] MEDS: ENALAPRIL MALEATE 10 MG TABLET PO (09:27)
[2022-08-31] MEDS: NYSTATIN 100,000 UNITS/ML SUSP 5 ML ORAL.SUSP PO ×3 (09:27→17:45)
--- NOTE | 2022-08-31 10:53 | PM.IMPN ---
Progress Note: A&P Assessment and Plan (1) Esophageal cancer, stage IV: Code(s): C15.9 - Malignant neoplasm of esophagus, unspecified Status: Chronic (2) Hematuria: Code(s): R31.9 - Hematuria, unspecified Status: Acute (3) Acute urinary retention: Code(s): R33.8 - Other retention of urine Status: Acute (4) Port-A-Cath in place: Code(s): Z95.828 - Presence of other vascular implants and grafts Status: Acute (5) Neutropenia: Code(s): D70.9 - Neutropenia, unspecified Status: Acute (6) Ulcer of the throat: Code(s): J38.7 - Other diseases of larynx Status: Acute Plan 76-year-old male patient with PMH of esophageal cancer, failing outpatient chemotherapy presented with throat pain, poor appetite, along with failure to thrive. Had hematuria, epistaxis. Found to be pancytopenic. 1)Chemotherapy Related pancytopenia: Pancytopenia has improved Will stop GSF Apprciate Oncology hlp No fever, continues to have diarrhea, cdiff negative Since WBC count has improved, Will stop cefepime and vanc 2)Mouth Ulcers: C/w magic mouthwash c/w nystatin swish and spit c/w Acyclovir for 5 days 3)Metastatic esophageal Cancer: Poor prognosis Appreciate Oncology help 4)Failure to thrive+Severe Protein Calorie Malnutrition: Nutritional support as needed c/w IV fluids Has hyponatremia Supplement potassium for hypokalemia Will recheck BMP in AM Obtain Xray abdomen for bloating Maalox 5)DVT ppx: SCD 6)Code:DNR, plan to start hospice upon discharge 7)Dispo: extremely poor half-way prognosis, can pln for discharge tomorrow home with hospice care 08/31/2022 Plan is to continue current treatment and hospice care with the patient. Subjective Date/time seen: 08/31/22 10:53 Patient was seen during the morning rounds today. No new overnight complaints. Mild abdominal bloating and poor appetite. No shortness of breath or chest pain. Review of Systems Review of Systems: All systems reviewed & are unremarkable except as noted in HPI and below Constitutional: Constitutional: Reports as per HPI and Reports no additional constitutional complaints Eyes: Eyes: Reports as per HPI and Reports no additional eye complaints ENT: Reports system reviewed and no additional complaints, except as documented and Reports Normal hearing present Cardiovascular: Cardiovascular: Reports no additional cardiovascular complaints Respiratory: Respiratory: Reports no additional respiratory complaints and Reports no additional respiratory complaints Gastrointestinal: Gastrointestinal: Reports as per HPI and Reports no additional gastrointestinal complaints Musculoskeletal: Musculoskeletal: Reports no additional musculoskeletal complaints Integumentary/Breasts: Skin/Breast: Reports system reviewed and no additional complaints, except as docu and Reports as per HPI Neurologic: Reports system reviewed and no additional complaints, except as documented, Reports as per HPI and Reports Normal hearing present Psychiatric: Psychiatric: Reports no additional psychiatric complaints and Reports as per HPI Endocrine: Endocrine: Reports no additional endocrine complaints Hematologic/Lymphatic: Hematologic/Lymphatic: Reports no additional hematologic/lymphatic complaints Allergic/Immunologic: Allergic/Immunologic: Reports no additional allergic/immunologic complaints Exam Const: General: cooperative, comfortable, no acute distress, well developed, alert, awake, Physically active, ill appearing, tired appearing, average body habitus, well nourished and thin Nutritional Appearance: average body habitus, well nourished and thin Orientation/consciousness: oriented to person, oriented to place, oriented to time and patient oriented x3 Limitations: no limitations Other: fragile elderly gentleman HENMT: Head: normal to inspection, No palpable skull fracture present, normocephalic, atraum
--- NOTE | 2022-08-31 11:59 | PM.DS ---
DS: Admitting Diagnosis Discharge Date 08/31/2022 Admitting Diagnosis Metastatic esophageal cancer DS: Discharge Diagnosis Discharge Diagnosis (1) Esophageal cancer, stage IV: Code(s): C15.9 - Malignant neoplasm of esophagus, unspecified Status: Chronic (2) Hematuria: Code(s): R31.9 - Hematuria, unspecified Status: Acute (3) Acute urinary retention: Code(s): R33.8 - Other retention of urine Status: Acute (4) Port-A-Cath in place: Code(s): Z95.828 - Presence of other vascular implants and grafts Status: Acute (5) Neutropenia: Code(s): D70.9 - Neutropenia, unspecified Status: Acute (6) Ulcer of the throat: Code(s): J38.7 - Other diseases of larynx Status: Acute Plan 76-year-old male patient with PMH of esophageal cancer, failing outpatient chemotherapy presented with throat pain, poor appetite, along with failure to thrive. Had hematuria, epistaxis. Found to be pancytopenic. 1)Chemotherapy Related pancytopenia: Pancytopenia has improved Will stop GSF Apprciate Oncology hlp No fever, continues to have diarrhea, cdiff negative Since WBC count has improved, Will stop cefepime and vanc 2)Mouth Ulcers: C/w magic mouthwash c/w nystatin swish and spit c/w Acyclovir for 5 days 3)Metastatic esophageal Cancer: Poor prognosis Appreciate Oncology help 4)Failure to thrive+Severe Protein Calorie Malnutrition: Nutritional support as needed c/w IV fluids Has hyponatremia Supplement potassium for hypokalemia Will recheck BMP in AM Obtain Xray abdomen for bloating Maalox 5)DVT ppx: SCD 6)Code:DNR, plan to start hospice upon discharge 7)Dispo: extremely poor senior living prognosis, can pln for discharge tomorrow home with hospice care 08/31/2022 Plan is to continue current treatment and hospice care with the patient. DS: Summary Hospital Course Reason for hospitalization: 76 years old male was admitted with in the hospital for esophageal cancer metastatic in nature. Patient was given fluids and medication the hospital. Patient condition did not improve and family decided to go for hospice care at home. Hospice care was arranged and patient was transferred in stable condition Hospital Course: 76 years old male was admitted with in the hospital for esophageal cancer metastatic in nature. Patient was given fluids and medication the hospital. Patient condition did not improve and family decided to go for hospice care at home. Hospice care was arranged and patient was transferred in stable condition Time Spent with Patient Time attestation: Total time spent providing and/or coordinating discharge services: Exam Const: General: cooperative, comfortable, no acute distress, well developed, alert, awake, Physically active, ill appearing, tired appearing, average body habitus, well nourished and thin Nutritional Appearance: average body habitus, well nourished and thin Orientation/consciousness: oriented to person, oriented to place, oriented to time and patient oriented x3 Limitations: no limitations Other: fragile elderly gentleman HENMT: Head: normal to inspection, No palpable skull fracture present, normocephalic, atraumatic and abrasion Ears: hearing grossly normal bilaterally and external ears normal Face/Nose/Sinus: Normal external nose present and Normal nares present Other: ulcers seen in mucosal area Eyes: General: appearance normal, both eyes and all related structures Alignment and Position: alignment normal Periorbital: periorbital findings normal Eyelids: eyelids normal Sclera: sclerae normal Pupils: Equal, round and reactive pupils present EOM: EOMs intact bilaterally Neck: Neck: normal visual inspection, full ROM, no lymphadenopathy, trachea midline and supple Chest: Chest palpation & inspection: normal inspection of the chest Resp: Effort & Inspection: normal respiratory effort Auscultation: clear to au
[2022-08-31 14:00] VITALS: BP 108/50; PULSE 86; RESP 18; TEMP 36.7; O2SAT 91
[2022-08-31] MEDS: HEPARIN SODIUM LOCK FLUSH 500 UNITS/5 ML SYRINGE IV PUSH (15:27)
== END 2022-08-31 18:32 | disposition hospice, home (50) | DRG 808 ==
LOC: ANHED 18:38 → ANH3MEDSUR 20:11
PROVIDERS: Internal Medicine; Nurse Practitioner; Admitting Provider Chiropractor; Emergency Provider Emergency Medicine; PCP Family Medicine; Visit Provider Internal Medicine
DX: D61.810 Antineoplastic chemotherapy induced pancytopenia (principal); E43 Unspecified severe protein-calorie malnutrition; E87.1 Hypo-osmolality and hyponatremia; C78.89 Secondary malignant neoplasm of other digestive organs; T45.1X5A Adverse effect of antineoplastic and immunosuppressive drugs, initial encounter; N40.1 Benign prostatic hyperplasia with lower urinary tract symptoms; R33.8 Other retention of urine; C80.1 Malignant (primary) neoplasm, unspecified; E87.6 Hypokalemia; J39.2 Other diseases of pharynx; J38.7 Other diseases of larynx; R31.9 Hematuria, unspecified; E86.0 Dehydration; R62.7 Adult failure to thrive; L40.9 Psoriasis, unspecified; Z66 Do not resuscitate; Z68.24 Body mass index [BMI] 24.0-24.9, adult; Z95.828 Presence of other vascular implants and grafts; Z79.82 Long term (current) use of aspirin; Z87.891 Personal history of nicotine dependence; Z51.5 Encounter for palliative care
CPT/HCPCS: 36415; 51703; 71045; 74019; 80047; 80048; 80053; 81001; 82565; 83605; 83735; 84443; 85025; 85055; 87040; 87493; 96361; 96375; 96376; 99285; A9270; G0378; J0131; J0133; J0692; J3370; J7030; J7120; Q5101